=== PATIENT | male | born 1950 | race Caucasian/White ===

== ENCOUNTER → 2017-12-29 05:00 | Outpatient (REF) | payer MEDICARE, OTHER, SELFPAY ==
[2017-12-29 08:32] LABS: Hematocrit 43.3 % (40-54); Mean Corp Hgb Conc 32.3 g/gl (32-36); Mean Corpuscular Hgb 29.4 pg (27.0-32.0); Mean Corpuscular Volume 90.8 fL (80-94); Mean Platelet Vol. 9.9 fl (6.2-12.0); Platelet Count 151 K/mm3 (150-450); RBC Distribution Width CV 16.7 % (11.6-14.6); RBC Distribution Width SD 54.6 fl (35.1-43.9); Red Blood Count 4.77 M/mm3 (4.6-6.2); White Blood Count 6.6 K/mm3 (4.4-11.0)
[2017-12-29 08:43] LABS: Scan Indicated on CBC? Y/N NO
[2017-12-29 08:46] LABS: Anion Gap 10 (5-15); BUN 12 mg/dL (7-18); BUN/Creat Ratio 12.7 RATIO (10-20); Calcium,Total 8.7 mg/dL (8.5-10.1); Chloride 105 mmol/L (98-107); Creatinine, Serum 0.94 mg/dL (0.70-1.30); EST Glomerular Filtration Rate 85 mL/min (>60); Est Glom Filt Rate - Afr Amer 103 mL/min (>60); Glucose 95 mg/dL (74-106); Sodium Level 140 mmol/L (136-145)
== END ==
LOC: OLS.WCC 05:00
PROVIDERS: Visit Provider Family Medicine
DX: I10 Essential (primary) hypertension (principal); D64.9 Anemia, unspecified
CPT/HCPCS: 36415; 80048; 85027

== ENCOUNTER → 2018-03-29 05:00 | Outpatient (REF) | payer MEDICARE, OTHER, SELFPAY ==
[2018-03-29 08:41] LABS: Hematocrit 44.2 % (40-54); Hemoglobin 14.2 g/dl (13.0-16.5); Mean Corp Hgb Conc 32.1 g/gl (32-36); Mean Corpuscular Hgb 29.7 pg (27.0-32.0); Mean Corpuscular Volume 92.5 fL (80-94); Mean Platelet Vol. 9.5 fl (6.2-12.0); Platelet Count 160 K/mm3 (150-450); RBC Distribution Width CV 15.2 % (11.6-14.6); RBC Distribution Width SD 51.4 fl (35.1-43.9); Red Blood Count 4.78 M/mm3 (4.6-6.2); White Blood Count 7.7 K/mm3 (4.4-11.0)
[2018-03-29 08:42] LABS: Scan Indicated on CBC? Y/N NO
[2018-03-29 09:18] LABS: Anion Gap 9 (5-15); BUN 20 mg/dL (7-18); BUN/Creat Ratio 15.9 RATIO (10-20); Calcium,Total 8.4 mg/dL (8.5-10.1); Chloride 106 mmol/L (98-107); Creatinine, Serum 1.26 mg/dL (0.70-1.30); EST Glomerular Filtration Rate 61 mL/min (>60); Est Glom Filt Rate - Afr Amer 73 mL/min (>60); Glucose 106 mg/dL (74-106); Sodium Level 140 mmol/L (136-145)
== END ==
LOC: OLS.WCC 05:00
PROVIDERS: Visit Provider Family Medicine
DX: D64.9 Anemia, unspecified (principal); I10 Essential (primary) hypertension
CPT/HCPCS: 36415; 80048; 85027

== ENCOUNTER → 2018-06-28 05:00 | Outpatient (REF) | payer MEDICARE, OTHER, SELFPAY ==
[2018-06-28 09:50] LABS: Hematocrit 43.2 % (40-54); Hemoglobin 13.5 g/dl (13.0-16.5); Mean Corp Hgb Conc 31.3 g/gl (32-36); Mean Corpuscular Hgb 29.7 pg (27.0-32.0); Mean Corpuscular Volume 94.9 fL (80-94); Mean Platelet Vol. 9.3 fl (6.2-12.0); Platelet Count 169 K/mm3 (150-450); RBC Distribution Width CV 15.3 % (11.6-14.6); RBC Distribution Width SD 53.1 fl (35.1-43.9); Red Blood Count 4.55 M/mm3 (4.6-6.2); White Blood Count 8.9 K/mm3 (4.4-11.0)
[2018-06-28 09:51] LABS: Scan Indicated on CBC? Y/N NO
[2018-06-28 11:12] LABS: Anion Gap 10 (5-15); BUN 17 mg/dL (7-18); BUN/Creat Ratio 15.2 RATIO (10-20); Calcium,Total 8.7 mg/dL (8.5-10.1); Chloride 109 mmol/L (98-107); Creatinine, Serum 1.12 mg/dL (0.70-1.30); EST Glomerular Filtration Rate 69 mL/min (>60); Est Glom Filt Rate - Afr Amer 84 mL/min (>60); Glucose 123 mg/dL (74-106); Potassium 3.9 mmol/L (3.5-5.1); Sodium Level 145 mmol/L (136-145)
== END ==
LOC: OLS.WCC 05:00
PROVIDERS: Visit Provider Family Medicine
DX: D64.9 Anemia, unspecified (principal); I10 Essential (primary) hypertension
CPT/HCPCS: 36415; 80048; 85027

== ENCOUNTER → 2018-09-27 05:00 | Outpatient (REF) | payer MEDICARE, OTHER, SELFPAY ==
[2018-09-27 08:50] LABS: Hematocrit 45.7 % (40-54); Hemoglobin 14.6 g/dl (13.0-16.5); Mean Corp Hgb Conc 31.9 g/gl (32-36); Mean Corpuscular Hgb 29.9 pg (27.0-32.0); Mean Corpuscular Volume 93.6 fL (80-94); Platelet Count 153 K/mm3 (150-450); RBC Distribution Width CV 15.3 % (11.6-14.6); RBC Distribution Width SD 52.7 fl (35.1-43.9); Red Blood Count 4.88 M/mm3 (4.6-6.2); White Blood Count 6.3 K/mm3 (4.4-11.0)
[2018-09-27 08:52] LABS: Scan Indicated on CBC? Y/N NO
[2018-09-27 09:15] LABS: Anion Gap 9 (5-15); BUN 16 mg/dL (7-18); BUN/Creat Ratio 14.8 RATIO (10-20); Calcium,Total 8.6 mg/dL (8.5-10.1); Chloride 107 mmol/L (98-107); Creatinine, Serum 1.08 mg/dL (0.70-1.30); EST Glomerular Filtration Rate 72 mL/min (>60); Est Glom Filt Rate - Afr Amer 88 mL/min (>60); Glucose 118 mg/dL (74-106); Potassium 3.9 mmol/L (3.5-5.1); Sodium Level 142 mmol/L (136-145)
== END ==
LOC: OLS.WCC 05:00
PROVIDERS: Visit Provider Family Medicine
DX: D64.9 Anemia, unspecified (principal); I10 Essential (primary) hypertension
CPT/HCPCS: 36415; 80048; 85027

== ENCOUNTER → 2018-12-28 05:00 | Outpatient (REF) | payer MEDICARE, OTHER, SELFPAY ==
[2018-12-28 07:56] LABS: Hematocrit 46.4 % (40-54); Hemoglobin 14.8 g/dl (13.0-16.5); Mean Corp Hgb Conc 31.9 g/gl (32-36); Mean Corpuscular Hgb 29.7 pg (27.0-32.0); Mean Corpuscular Volume 93.2 fL (80-94); Mean Platelet Vol. 9.7 fl (6.2-12.0); Platelet Count 139 K/mm3 (150-450); RBC Distribution Width CV 15.1 % (11.6-14.6); RBC Distribution Width SD 51.1 fl (35.1-43.9); Red Blood Count 4.98 M/mm3 (4.6-6.2)
[2018-12-28 08:00] LABS: Scan Indicated on CBC? Y/N NO
[2018-12-28 08:09] LABS: Anion Gap 10 (5-15); BUN 13 mg/dL (7-18); BUN/Creat Ratio 12.5 RATIO (10-20); Calcium,Total 8.6 mg/dL (8.5-10.1); Chloride 109 mmol/L (98-107); Creatinine, Serum 1.04 mg/dL (0.70-1.30); EST Glomerular Filtration Rate 76 mL/min (>60); Est Glom Filt Rate - Afr Amer 91 mL/min (>60); Glucose 110 mg/dL (74-106); Sodium Level 143 mmol/L (136-145)
== END ==
LOC: OLS.WCC 05:00
PROVIDERS: Visit Provider Family Medicine
DX: I10 Essential (primary) hypertension (principal); D64.9 Anemia, unspecified
CPT/HCPCS: 36415; 80048; 85027

== ENCOUNTER → 2019-03-29 05:00 | Outpatient (REF) | payer MEDICARE, OTHER, SELFPAY ==
[2019-03-29 08:36] LABS: Hematocrit 47.6 % (40-54); Hemoglobin 15.8 g/dl (13.0-16.5); Mean Corp Hgb Conc 33.2 g/gl (32-36); Mean Corpuscular Hgb 29.9 pg (27.0-32.0); Mean Corpuscular Volume 90.2 fL (80-94); Mean Platelet Vol. 9.7 fl (6.2-12.0); Platelet Count 150 K/mm3 (150-450); RBC Distribution Width CV 14.9 % (11.6-14.6); RBC Distribution Width SD 49.5 fl (35.1-43.9); Red Blood Count 5.28 M/mm3 (4.6-6.2)
[2019-03-29 08:50] LABS: Anion Gap 7 (5-15); BUN 16 mg/dL (7-18); BUN/Creat Ratio 13.8 RATIO (10-20); Calcium,Total 8.6 mg/dL (8.5-10.1); Chloride 108 mmol/L (98-107); Creatinine, Serum 1.16 mg/dL (0.70-1.30); EST Glomerular Filtration Rate 67 mL/min (>60); Est Glom Filt Rate - Afr Amer 81 mL/min (>60); Glucose 140 mg/dL (74-106); Potassium 3.9 mmol/L (3.5-5.1); Sodium Level 142 mmol/L (136-145)
[2019-03-29 08:58] LABS: Scan Indicated on CBC? Y/N NO
== END ==
LOC: OLS.WCC 05:00
PROVIDERS: Visit Provider Family Medicine
DX: D64.9 Anemia, unspecified (principal); I10 Essential (primary) hypertension
CPT/HCPCS: 36415; 80048; 85027

== ENCOUNTER → 2019-06-29 05:00 | Outpatient (REF) | payer MEDICARE, OTHER, SELFPAY ==
[2019-06-29 08:34] LABS: Hematocrit 46.3 % (40-54); Hemoglobin 15.2 g/dL (13.0-16.5); Mean Corp Hgb Conc 32.8 g/dL (32-36); Mean Corpuscular Hgb 30.7 pg (27.0-32.0); Mean Corpuscular Volume 93.5 fL (80-94); Mean Platelet Vol. 9.7 fl (6.2-12.0); Platelet Count 146 K/mm3 (150-450); RBC Distribution Width SD 51.5 fl (35.1-43.9); Red Blood Count 4.95 M/mm3 (4.6-6.2); White Blood Count 6.3 K/mm3 (4.4-11.0)
[2019-06-29 08:40] LABS: Anion Gap 11 (5-15); BUN 16 mg/dL (7-18); BUN/Creat Ratio 14.4 RATIO (10-20); Calcium,Total 8.9 mg/dL (8.5-10.1); Chloride 105 mmol/L (98-107); Creatinine, Serum 1.11 mg/dL (0.70-1.30); EST Glomerular Filtration Rate 70 mL/min (>60); Est Glom Filt Rate - Afr Amer 85 mL/min (>60); Glucose 133 mg/dL (74-106); Potassium 3.8 mmol/L (3.5-5.1); Sodium Level 142 mmol/L (136-145)
== END ==
LOC: OLS.WCC 05:00
PROVIDERS: Visit Provider Family Medicine
DX: D64.9 Anemia, unspecified (principal); I10 Essential (primary) hypertension
CPT/HCPCS: 36415; 80048; 85027

== ENCOUNTER → 2019-09-27 06:00 | Outpatient (REF) | payer MEDICARE, OTHER, SELFPAY ==
[2019-09-27 08:37] LABS: Absolute Lymphocyte Count 1.64 X10^3/uL (0.83-4.51); Absolute Neutrophil Count 7.2 X10^3/uL (2.0-7.7); Basophil# 0.07 X10^3/uL; Basophil% 0.7 % (0-1); Eosinophil# 0.01 X10^3/uL; Eosinophils% 0.1 % (0-5); Lymphocyte # 1.64 X10^3/ul (4.0); Lymphocyte % 16.4 % (19-41); Mean Corp Hgb Conc 32.2 g/dL (32-36); Mean Corpuscular Hgb 30.3 pg (27.0-32.0); Mean Platelet Vol. 10.5 fl (6.2-12.0); Monocyte# 1.08 X10^3/uL; Monocyte% 10.8 % (0-10); NRBC Flagged by Analyzer 0 % (0-5); Neutrophil # 7.18 X10^3/uL (2.7-7.7); Neutrophil % 71.7 % (47-70); Platelet Count 181 K/mm3 (150-450); RBC Distribution Width SD 51.3 fl (35.1-43.9); Red Blood Count 6.01 M/mm3 (4.6-6.2)
[2019-09-27 08:46] LABS: Hematocrit 56.5 % (40-54)
[2019-09-27 08:51] LABS: Differential Indicated SCAN CRITERIA MET; Hemoglobin 18.2 g/dL (13.0-16.5)
[2019-09-27 09:33] LABS: Anion Gap 11 (5-15); BUN 31 mg/dL (7-18); BUN/Creat Ratio 16.8 RATIO (10-20); Calcium,Total 9.8 mg/dL (8.5-10.1); Chloride 118 mmol/L (98-107); Creatinine, Serum 1.85 mg/dL (0.70-1.30); EST Glomerular Filtration Rate 39 mL/min (>60); Est Glom Filt Rate - Afr Amer 47 mL/min (>60); Glucose 592 mg/dL (74-106); Potassium 3.6 mmol/L (3.5-5.1); Sodium Level 154 mmol/L (136-145)
[2019-09-28 11:16] LABS: Pathologist Review Reviewed
== END ==
LOC: OLS.WCC 06:00
PROVIDERS: Visit Provider Family Medicine
DX: D59.9 Acquired hemolytic anemia, unspecified (principal); R53.1 Weakness
CPT/HCPCS: 36415; 80048; 85025

== ENCOUNTER 2019-09-27 12:08 | Inpatient (IN) | payer MEDICARE, OTHER, SELFPAY ==
[2019-09-27] VITALS (23 sets, daily range): BP systolic 127–200; BP diastolic 104–143; PULSE 87–116; RESP 13–28; TEMP 36.3–37.6; O2SAT 94–97; BMI 27.1; BMI 27.8
[2019-09-27 13:01] LABS: Bedside Glucose > 500 mg/dL (70-110)
--- NOTE | 2019-09-27 13:06 | EKG12_ITS ---
Test Reason : GEN ILLNESS Blood Pressure : / mmHG Vent. Rate : 107 BPM Atrial Rate : 107 BPM P-R Int : 158 ms QRS Dur : 072 ms QT Int : 346 ms P-R-T Axes : 055 059 041 degrees QTc Int : 461 ms Sinus tachycardia Cannot rule out Inferior infarct , age undetermined Abnormal ECG Confirmed by JENNY GOMES, BRIAN ([id number]), art editor SUSANNA STILES ([id number]) on 10/03/2019 2:16:47 PM Referred By: Joslyn Galloway Confirmed By:BRIAN ALVARADO MD
--- NOTE | 2019-09-27 13:06 | RAD_ITS ---
STUDY: X-RAY CHEST REASON FOR EXAM: Male, 69 years old. Confusion/sepsis. TECHNIQUE: Single AP portable view of the chest. COMPARISON: Comparison is made with prior examination of February 16, 2017. FINDINGS: A right sided ventriculoperitoneal shunt tube is seen. EKG electrodes are seen. Stable mild elevation of the right hemidiaphragm. Persistent increased markings at the left lung base suggestive of left basilar atelectasis and/or infiltrate. There is blunting of the left costophrenic angle. Normal size heart. Normal mediastinum and grace. Normal visualized pulmonary arteries. There is atherosclerotic tortuosity of the aortic arch and descending thoracic aorta. There are degenerative changes of the visualized thoracic spine. Normal visualized ribs, clavicles, and shoulders. There is no demonstrated abnormality of the visualized soft tissue structures of the upper abdomen. RAD/Chest 1 View (Portable) IMPRESSION: Increased markings at the left lung base. Follow-up is recommended. Electronically Signed: Kurt Day, at 13:26 EST , Service support ,
--- NOTE | 2019-09-27 13:07 | CT_ITS ---
STUDY: CT BRAIN WITHOUT CONTRAST REASON FOR EXAM: Male, 69 years old. Increasing confusion. LEATHER TACKER shunt. RADIATION DOSAGE (If Supplied By Facility): CTDIvol = ( 44.99 ) mGy, DLP = ( 779.24 ) mGycm TECHNIQUE: Transaxial CT imaging of the brain was performed without administration of intravenous contrast material. Individualized dose optimization techniques were used for this CT. COMPARISON: Comparison is made with prior study dated February 18, 2017. FINDINGS: Normal soft tissue structures. Stable craniotomy defect in the midline of the occipital bone .A right-sided ventriculoperitoneal shunt tube is in situ. The tip is in the left frontal horn. There is moderate cerebral atrophy with widening of the extra-axial spaces and ventricular dilatation. There are areas of decreased attenuation within the white matter tracts of the supratentorial brain, consistent with microvascular disease changes. Stable encephalomalacia in the left frontal lobe. Normal basal ganglia and thalami. Normal brainstem. There is moderate cerebellar atrophy. Postoperative encephalomalacia seen in the inferior aspect of the cerebellum more prominent on the right side. There is no intracranial hemorrhage. There are no findings of an acute ischemic infarction. Opacification of the right maxillary sinus as well as the right frontal sinus. CT/Brain/Head without Contrast IMPRESSION: Chronic involutional changes of the brain. A right-sided ventriculoperitoneal shunt tube is seen with the tip in the left frontal horn. Stable atrophy and encephalomalacia involving the left frontal lobe as well as the cerebellum. Electronically Signed: Kurt Day, at 14:10 EST , Service support ,
[2019-09-27 13:18] LABS: Absolute Lymphocyte Count 1.37 X10^3/uL (0.83-4.51); Absolute Neutrophil Count 8.8 X10^3/uL (2.0-7.7); Basophil# 0.05 X10^3/uL; Basophil% 0.4 % (0-1); Eosinophil# 0.01 X10^3/uL; Eosinophils% 0.1 % (0-5); Lymphocyte # 1.37 X10^3/ul (4.0); Lymphocyte % 12.3 % (19-41); Mean Corp Hgb Conc 31.9 g/dL (32-36); Mean Corpuscular Hgb 30.3 pg (27.0-32.0); Mean Corpuscular Volume 94.9 fL (80-94); Mean Platelet Vol. 11.2 fl (6.2-12.0); Monocyte# 0.88 X10^3/uL; Monocyte% 7.9 % (0-10); NRBC Flagged by Analyzer 0 % (0-5); Neutrophil # 8.84 X10^3/uL (2.7-7.7); Platelet Count 169 K/mm3 (150-450); RBC Distribution Width CV 16.8 % (11.6-14.6); RBC Distribution Width SD 53.2 fl (35.1-43.9); Red Blood Count 6.41 M/mm3 (4.6-6.2); White Blood Count 11.2 K/mm3 (4.4-11.0)
[2019-09-27 13:22] LABS: Hematocrit 60.8 % (40-54)
[2019-09-27 13:23] LABS: Hemoglobin 19.4 g/dL (13.0-16.5)
--- NOTE | 2019-09-27 13:29 | ED.RN ---
CRITICAL LAB VALUE RECEIVED FROM LAB. HGB 19.4. DR. ROSARIO NOTIFIED.
[2019-09-27 13:39] LABS: ALB/GLOB Ratio 0.7 RATIO (0.9-2.4); AST(SGOT) 39 U/L (15-37); Alanine Aminotransfer ALT/SGPT 40 U/L (16-61); Albumin, Serum 4.1 g/dL (3.2-5.0); Alkaline Phosphatase 144 U/L (45-117); Anion Gap 9 (5-15); BUN 33 mg/dL (7-18); BUN/Creat Ratio 15.3 RATIO (10-20); Calcium,Total 10.4 mg/dL (8.5-10.1); Chloride 119 mmol/L (98-107); Creatinine, Serum 2.15 mg/dL (0.70-1.30); EST Glomerular Filtration Rate 33 mL/min (>60); Est Glom Filt Rate - Afr Amer 39 mL/min (>60); Estimated Creatinine Clearance 36.09 ml/min; Globulin 5.6 g/dL (2.2-4.2); Glucose 634 mg/dL (74-106); Potassium 3.8 mmol/L (3.5-5.1); Protein, Total 9.7 g/dL (6.4-8.2); Sodium Level 151 mmol/L (136-145)
[2019-09-27 13:41] LABS: Mucous, Urine 0 SEEN /hpf (<or=2+); Squamous Epithelial Cells - UA 0 SEEN /hpf (0-5)
--- NOTE | 2019-09-27 13:43 | ED.RN ---
DAUGHTER NAGA [phone] TO BE CALLED WHEN PT IS READY TO BE RE-EVALED. OXYGEN APPLIED TO PT, PT KEEPS REMOVING OXYGEN. ATTEMPTED TO EDUCATE PT TO KEEP IT ON. PT UNABLE TO UNDERSTAND
[2019-09-27 13:51] LABS: Color, Urine Yellow (Yellow); Glucose, Dipstick 1000 mg/dl (Normal); Ketone-Dipstick 5 mg/dl (Negative); Leukocyte Esterase-Dipstick 500 /ul (Negative); Nitrite-Dipstick Negative (Negative); Occult Blood-Urine 250 /ul (Negative); Protein-Dipstick 100 mg/dl (Negative); Specific Gravity, Urine 1.015 (1.002-1.030); Urine Bilirubin Dipstick Negative (Negative); Urine Clarity Cloudy (Clear); Urine Urobilinogen Normal (Normal)
[2019-09-27 14:00] LABS: Lactic Acid 4.5 mmol/L (0.4-2.0)
[2019-09-27 14:05] LABS: Bacteria 4+ /hpf (None Seen); Red Blood Cells-Urine 10-25 SEEN /hpf (0-5); White Blood Cells 25-50 SEEN /hpf (0-5)
[2019-09-27] MEDS: 0.9% Normal Saline 1,000 ML 999 ML IV ×3 (14:06→16:40)
[2019-09-27 14:17] LABS: International Normalized Ratio 1.2; Partial Thromboplast Time 25.9 Seconds (24.1-36.2); Prothrombin Time (Protime)PT. 14.5 SECONDS (11.7-14.9)
--- NOTE | 2019-09-27 14:59 | HP.PCM_ITS ---
Problem List (1) Septic shock Status: Acute (2) Complicated UTI (urinary tract infection) Status: Acute (3) Urinary retention Status: Acute (4) Hyperosmolar hyperglycemic coma due to diabetes mellitus without ketoacidosis Status: Acute (5) Acute kidney injury Status: Acute (6) Anemia of chronic disease Status: Chronic (7) AAA (abdominal aortic aneurysm) Status: Chronic Qualifiers: Presence of rupture: without rupture Qualified Code(s): I71.4 - Abdominal aortic aneurysm, without rupture (8) Hydrocephalus Status: Chronic Qualifiers: Hydrocephalus type: unspecified Qualified Code(s): G91.9 - Hydrocephalus, unspecified (9) S/P AUTOMATIC SPINNING LATHE OPERATOR shunt Status: Chronic (10) CVA (cerebral vascular accident) Status: Chronic Qualifiers: CVA mechanism: unspecified Qualified Code(s): I63.9 - Cerebral infarction, unspecified (11) HTN (hypertension) Status: Chronic Qualifiers: Hypertension type: essential hypertension Qualified Code(s): I10 - Essential (primary) hypertension (12) HLD (hyperlipidemia) Status: Chronic Qualifiers: Hyperlipidemia type: unspecified Qualified Code(s): E78.5 - Hyperlipidemia, unspecified (13) Anxiety and depression Status: Chronic History of Present Illness Date of Admission: 09/27/19 Chief Complaint: Fatigued, lethargic, confused, elevated BS The patient is a 69 y/o M w/ PMHx: 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 At facility given his hyperglycemia he was given 24 units of insulin and referred to the emergency room. Patient per report is chronically incontinent and does have mild erythema in the scrotal and penile regions with ongoing treatment with antifungal topical regimen which facility noted was unchanged. Work-up in the ED included T 98.4 with repeat 99.6, heart rate 115, BP 132/106, respiratory rate 28, 94% on room air, CBC with W BC 11.2, heme globin 19.4, platelet 169 with left shift, unremarkable coags, CMP w/ Na 151, Chl 119, BUN/Cr 33/2.15, glucose 634, anion gap 9, lactic acid 4.5, calcium 10.4, AST/ALT 39/40, alk phos 144, troponin 0.035, urinalysis with specific gravity 1.015, cloudy, protein 100, glucose 1000, ketones 5, occult blood 250, leukocyte esterase 500, RBC 10-25, WBC 25-50, 4+ bacteria, urine culture pending per ED, blood culture x2 pending per ED, chest x-ray with mild increased markings at the left lung base, CT brain with chronic involutional changes with a right-sided AUTOMATIC SPINNING LATHE OPERATOR shunt identified with the tip in the left frontal horn with stable atrophy and encephalomalacia involving the left frontal lobe as well as the cerebellum. Prior urine cultures with noted Proteus as well as E. coli with significant resistance patterns. Following review of these and discussion of current presentation with ED physician patient in addition to 3 L normal saline initiated on insulin drip as well as IV meropenem. 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 needing contact precautions Stage 1 decubitus ulcer (Chronic) Allergies No Known Allergies Allergy (Verified 09/27/19 12:17) Home Medications: Ambulatory Orders Medication Instructions Recorded Polyvinyl Alcohol [Artificial 2 drop EACHEYE TID 11/25/16 Tears] Acetaminophen [Acetaminophen 8 650 mg GT Q4H PRN PRN 02/16/17 Hour] Meclizine HCl [Antivert] 12.5 mg GT DAILY 02/16/17 Amlodipine [Norvasc] 5 mg GT DAILY 09/27/19 Aspirin 81 mg GT DAILY 09/27/19 Finasteride 5 mg PO DAILY 09/27/19 Insulin Aspart [Novolog Flexpen See Protocol SUBCUT TID 09/27/19 ([facility])] Ketoconazole [Nizoral] 1 applic TOPICAL BID 09/27/19 Melatonin 3 mg GT QHS 09/27/19 Polyethylene Glycol 3350 [Miralax] 17 gm PO DAILY 09/27/19 Quetiapine Fumarate [Seroquel] 25 mg GT QHS 09/27/19 Sennosides/Docusate Sodium 2 ea GT BID 09/27/19 [Senexon-S Tablet] Surgical History: - - Hx prior peg tube place placement and removal, evp general counsel 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 Psychiatric History: Anxiety, Depression Lives: Detention Smoking Status: Former smoker Tobacco Use: Non-smoker Alcohol: None Drugs: None - *Family History Paternal History Items: Heart Disease, Hypertension Maternal History Items: Heart Disease Review of Systems Constitutional: Reports: Anorexia, Fever - Low grade., Malaise, Weakness, Fatigue. Denies: Chills, Weight Change HEENT: Reports: - - Chronic left-sided facial droop.. Denies: Head Aches, Sinus Congestion, Sinus Drainage Cardiovascular: Denies: Chest Pain, Palpitations Respiratory: Denies: Cough, Shortness of Breath, Shortness of breath at rest, Shortness of breath upon exertion, Sputum production Gastrointestinal: Reports: Constipation. Denies: Abdominal Pain, Nausea, Vomiting Genitourinary: Reports: - - Noted urinary retention upon ED presentation.. Denies: Dysuria Musculoskeletal: Denies: Joint Pain, Joint Tenderness Skin: Reports: Skin Changes. Denies: Rash, Wounds Neurological: Reports: Balance problems, Slurred speech, Confusion, Focal weakness, Incoordination. Denies: Numbness, Tingling Psychiatric: Reports: Anxiety, Depression. Denies: Homicidal Ideations, Suicidal Ideations Hematologic/ Lymphatic: Reports: Anemia. Denies: Easy Bruising, Easy Bleeding VTE Information - Inpt Only VTE Present on Admission: No VTE Mechan Device Prophylaxis: SCD's VTE Pharm Prophylaxis ordered?: Yes Patient Problems: Active and Suspected Problems Septic shock (Acute) Complicated UTI (urinary tract infection) (Acute) Urinary retention (Acute) Hyperosmolar hyperglycemic coma due to diabetes mellitus without ketoacidosis (Acute) Subjective: Laying in the ED bed, fatigued and ill-appearing, able to answer who he is but very fatigued and slow responses. Objective: Physical Examination: General: awake, intermittently appears alert, oriented to self which is baseline, moderate to severe chronic memory impairment, remains intermittently cooperative, seated upright in the ED bed, fatigued and ill-appearing. Skin: normal color, turgor, no icterus, cyanosis. HEENT: AT/NC, EOM difficult to assess, follows from each bedside, PERRLA, mild L sided ptosis, left facial droop present, poor dentition, dry MM, no carotid bruits or JVD noted. Lungs: CTA bilaterally, poor effort, moderate decrease BL bases, no rales, ronchi or wheezing. Heart: Regular rate and rhythm; no gallop, rub audible. Abdomen: soft, overweight, NTTP, ND, normal BS, no HSM. Extremities: no cyanosis, clubbing, or edema. Neurological: awake, intermittently appears alert, oriented to self which is baseline, moderate to severe chronic memory impairment, remains intermittently cooperative; cognitive function decreased from baseline, baseline moderate to severe impairment s/p prior CVA, hydrocephalus s/p AUTOMATIC SPINNING LATHE OPERATOR shunt; pupils equally reactive to light and accomodation; cranial nerves grossly normal except notable L sided facial droop s/p CVA, somewhat difficult assessment given slow following commands, moving all 4 extremities to stimuli, strength difficult to assess but currently appears severely global decrease secondary to acute presentation, gated by underlying prior CVA history. Psychiatric: affect appears fatigued and lethargic, no acute evidence of depressive or anxiety feelings. - Physical Exam Vitals/I&O's: Vital Signs Temp Pulse Resp BP Pulse Ox 99.6 F H 110 H 22 H 153/121 H 96 09/27/19 14:05 09/27/19 14:00 09/27/19 14:00 09/27/19 14:06 09/27/19 14:00 Oxygen Flow Rate (L/min) 2 Oxygen Delivery Method Nasal Cannula Weight: 200 lb 6.403 oz Body Mass Index (BMI) 27.1 Finger Stick Blood Glucose 107 Laboratory Results 09/27/19 12:26: Sodium 151 H, Potassium 3.8, Chloride 119 H, Carbon Dioxide 23.0, Anion Gap 9, BUN 33 H, Creatinine 2.15 H, Estim Creat Clear Calc 36.09, Est GFR (MDRD) Af Amer 39 L, Est GFR (MDRD) Non-Af 33 L, BUN/Creatinine Ratio 15.3, Glucose 634 H*, Calcium 10.4 H, Total Bilirubin 0.90, AST 39 H, ALT 40, Alkaline Phosphatase 144 H, Troponin I 0.035, Total Protein 9.7 H, Albumin 4.1, Globulin 5.6 H, Albumin/Globulin Ratio 0.7 L 09/27/19 12:26: WBC 11.2 H, RBC 6.41 H, Hgb 19.4 H*, Hct 60.8 H, MCV 94.9 H, MCH 30.3, MCHC 31.9 L, RDW Std Deviation 53.2 H, RDW Coeff of Jagruti 16.8 H, Plt Count 169, MPV 11.2, Immature Gran % (Auto) 0.300, Neut % (Auto) 79.0 H, Lymph % (Auto) 12.3 L, Nuckolls % (Auto) 7.9, Eos % (Auto) 0.1, Baso % (Auto) 0.4, Absolute Neuts (auto) 8.8 H, Absolute Lymphs (auto) 1.37, Nucleated RBC % 0, Diff Path Review March09/27/19 12:55: POC Glucose > 500 H* 09/27/19 13:25: Lactic Acid 4.5 H* 09/27/19 13:30: Urine Color Yellow, Urine Clarity Cloudy, Urine pH 5.0, Ur Specific [place] 1.015, Urine Protein 100 H, Urine Glucose (UA) 1000 H, Urine Ketones 5 H, Urine Occult Blood 250 H, Urine Nitrite Negative, Urine Bilirubin Negative, Urine Urobilinogen Normal, Ur Leukocyte Esterase 500 H, Urine RBC 10- 25 SEEN, Urine WBC 25-50 SEEN, Ur Squamous Epith Cells 0 SEEN, Urine Bacteria 4+, Urine Mucus 0 SEEN 09/27/19 13:55: PT 14.5, INR 1.2, APTT 25.9 Current Medications Dextrose (D50w Syringe) 0 gm IV X1 PRN; Protocol PRN Reason: Hypoglycemia Protocol Sodium Chloride () 1,000 mls @ 150 mls/hr IV .Q6H40M ETELVINA Sodium Chloride () 1,000 mls @ 999 mls/hr IV .Q1H1M ETELVINA Stop: 09/27/19 15:10 Last Admin: 09/27/19 14:06 Dose: 999 mls/hr Documented by: Sodium Chloride () 1,000 mls @ 999 mls/hr IV .Q1H1M ONE Stop: 09/27/19 15:22 Insulin Human Lispro 100 unit/ (Sodium Chloride) 100 mls @ 4.545 mls/hr IV .Q22H1M [facility]; Protocol Meropenem 1 gm/ Sodium (Chloride) 120 mls @ 240 mls/hr IV X1 ONE Stop: 09/27/19 15:26 Assessment/Plan All Active Problems Septic shock (Acute) Complicated UTI (urinary tract infection) (Acute) Urinary retention (Acute) Hyperosmolar hyperglycemic coma due to diabetes mellitus without ketoacidosis (Acute) Severe sepsis (Acute) UTI (urinary tract infection) (Acute) Acute kidney injury (Acute) Aspiration into airway (Acute) UTI (urinary tract infection) (Acute) Respiratory failure (Acute) The patient is a 69 y/o M w/ PMHx: 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 (1) Acute Septic Shock secondary to acute complicated UTI with urinary retention in addition to HHS state as noted #2: Will admit patient to the ICU given complicate presentation, continue to maintain on cardiac monitoring, continue IVF bolus per protocol, trend lactic acid per facility protocol, given comp gated urinary tract infection as suspected primary source in addition to hyperglycemic hyperosmolar state will maintain on IV meropenem per prior urine cultures with pending infectious disease consultation per facility protocol, maintain Reese catheter given retention with addition of Flomax and finasteride, ICU physician consulted and pending, continue IVFs. We will repeat the chest x- ray with PA and lateral in a.m. given mild left lower lobe findings on presentation ED chest x-ray. (2) Hyperglycemic hHyperosmolar State w/ New onset diabetes mellitus type II: Patient initiated on insulin drip in the emergency room with 3 L normal saline administration. Will continue on insulin drip, check serial K+, glucose w/ IVF changes pending these levels, serial chemistry, obtain mag, phos daily w/ repletion as needed, transition to SC regimen once blood sugars and clinical status improved. Will have nutrition consultation. Will obtain hemoglobin A1c. Acetone and serum osmolality pending. (3) Acute kidney injury: Secondary to #1, #2. Admission BUN/Cr 33/2.15, prior baseline creatinine noted to be 1.0-1.2. Will hydrate, hold nephrotoxic medications and repeat chemistry in AM. If no improvement would plan FeNa and renal ultrasound assessment. (4) Acute Encephalopathy, Metabolic, Infectious: Secondary to #1, #2, #3, continue treatment as noted above, complicated by underlying memory and self care impairment s/p prior CVA with AUTOMATIC SPINNING LATHE OPERATOR shunt. (5) Hx CVA, Hx Hydrocephalus s/p AUTOMATIC SPINNING LATHE OPERATOR Shunt: From history CVA associated w/ artery occlusion/stenosis, possibly basilar but unclear. Notable deficits including left-sided facial droop and unclear left-sided deficits. CT head with chronic involutional changes with a right-sided AUTOMATIC SPINNING LATHE OPERATOR shunt identified with the tip in the left frontal horn with stable atrophy and encephalomalacia involving the left frontal lobe as well as the cerebellum. We will continue on aspirin, not on sta tin therapy, continue Norvasc with hold parameters given acute presentation, new onset diabetes as noted #2 with continued evaluation. (6) Hypertension: Continue home regimen, given stable BP in the ED despite #1 presentation, including Norvasc with hold parameters, , PRN hydralazine. (7) Chronic COPD: Will maintain on oxygen with wean as tolerated to room air/home oxygen supplementation, continue ATC duonebs, PRN albuterol, HOB, IS parameters. (8) Anxiety and Depression: Will continue home q HS seroquel regimen pending re- evaluate of status, hold if sedate, not on SSRI or SNRI, may consider if necessary. (9) GERD: PPI. (10) DVT prophylaxis: SCDs, heparin. (11) CODE status: Daughter is HCPOA, Guardian. Patient does not have specific living will. Discussed CODE status at length including difference between FULL code, DNR-CCA and DNR-CC status. Following discussions about the differences in these status, requested continued DNR-CCA, no intubation status. Advanced Care Planning Face to Face Time: 16 minutes. Code Visit Inpatient E&M: 87751 Init Hosp L3 Procedures: 67178 Advncd Care Plan 30 Min
--- NOTE | 2019-09-27 15:58 | ED.DCSUM_ITS ---
- ER Visit Summary Date of Service: 09/27/19 Chief Complaint: Confusion History of Present Illness: The patient is a 69 M who presents the emergency department with increased confusion. Daughter states that it was noted today. They also noted at the [place] [facility] that her blood sugar was elevated. She tel ls me that he has had a prior stroke and the required shunt placement several years ago because of that he has been in the [place] [facility] since. His baseline is that he can feed himself and push himself in his own wheelchair and stand to transfer. She also informs me that the [place] [facility] stated that he had a rash in his inguinal area they applied a cream. No reported fevers. No vomiting or diarrhea. Daughter states he is very hard of hearing. Daughter tells me he is not a diabetic and that he received insulin this morning from the nursing Physical Examination: Temperature 99.5 heart rate of 115 respirations are 28 pulse ox 94% on room air blood pressure 132/106 Gen: Well-nourished well-developed Head: There are postoperative changes on the right parietal gallop Eyes: Perrl EOMI ENT: TMs clear no rhinorrhea dry mucous membranes Neck: Supple no lymphadenopathy no JVD nontender CVS: Regular rate tachycardic rhythm no murmurs normal S1-S2 Respiratory: No distress clear to auscultation bilaterally chest nontender Abdomen: Soft nontender nondistended normal bowel sounds no masses Genitourinary: Uncircumcised. There is generalized erythema of the scrotum shaft and meatus. There is no sloughing of skin. There is no foul smell. He is wearing a adult diaper that is soiled with urine Back: Nontender Extremity: Nontender no edema Skin: Normal color no rash Neuro: Lethargic but orientated ?3 moves all extremities Psych: Normal affect normal mood Test Results: EKG shows a sinus rhythm at a rate of 107. White count 11.2. Hemoglobin 19.4. Platelets 169. Creatinine 2.1 with a BUN of 33. Glucose 634. Normal gap and CO2 level. Urinalysis 25-50 white cells 4+ bacteria negative nitrates. Troponin 0 0.035. Lactic acid 4.5. Chest x-ray negative. CT of the brain shows no acute changes or obvious hydrocephalus. Emergency Department Course and Treatment: Reese catheter was placed for ac curate I's and O's and was noted the patient had a large amount of urine (1 L) removed. Is temperature sensitive and temperature is 99.5 and will continue to be monitored. Received IV fluids as well as placed on insulin drip and given meropenem. Meropenem was chosen because in 2017 he grew out E. coli that was multidrug resistant. He also grew out Proteus. Blood and urine cultures were ordered before antibiotics. Plan is admission to ICU. Impression: 1. Septic shock 2. Comp gated urinary tract infection 3. Acute kidney injury 4. Hyperosmolar hyperglycemic syndrome 5. Critical care time 35 minutes This note was generated with Optirenoation software. It may contain incorrect words, spelling, and punctuation that were not noted in review of the chart slick or to signing
[2019-09-27 16:29] LABS: Magnesium 2.5 mg/dL (1.6-2.6); Phosphorus 3.6 mg/dL (2.5-4.9)
[2019-09-27] MEDS: hydrALAZINE 20 MG/ML Vial 10 MG IV (16:34)
[2019-09-27 16:40] LABS: Hemoglobin A1c 9.7 % (4.2-6.3)
[2019-09-27 17:16] LABS: Bedside Glucose 302 mg/dL (70-110)
[2019-09-27 17:16] LABS: Bedside Glucose 397 mg/dL (70-110)
[2019-09-27 17:28] LABS: Reflex Lactate? Y
[2019-09-27] MEDS: 0.9% Normal Saline 1,000 ML 150 ML IV (18:18)
[2019-09-27 18:20] LABS: Anion Gap 5 (5-15); BUN 29 mg/dL (7-18); BUN/Creat Ratio 17.2 RATIO (10-20); Calcium,Total 9.4 mg/dL (8.5-10.1); Chloride 129 mmol/L (98-107); Creatinine, Serum 1.69 mg/dL (0.70-1.30); EST Glomerular Filtration Rate 43 mL/min (>60); Est Glom Filt Rate - Afr Amer 52 mL/min (>60); Glucose 306 mg/dL (74-106); Lactic Acid 3.2 mmol/L (0.4-2.0); Potassium 3.3 mmol/L (3.5-5.1); Sodium Level 157 mmol/L (136-145)
[2019-09-27 18:33] LABS: Osmolality, Serum 351 mOsm/KG (280-301)
[2019-09-27 19:01] LABS: Bedside Glucose 267 mg/dL (70-110)
[2019-09-27 19:01] LABS: Bedside Glucose 281 mg/dL (70-110)
[2019-09-27 20:00] LABS: Bedside Glucose 262 mg/dL (70-110)
[2019-09-27] MEDS: Heparin Injection (Vial) 5,000 UNIT/ML VIAL 5000 UNIT SC (22:05)
[2019-09-27] MEDS: Ketoconazole Cream 1 APPLIC TOPICAL (22:06)
[2019-09-27 22:16] LABS: Bedside Glucose 239 mg/dL (70-110)
[2019-09-27 22:16] LABS: Bedside Glucose 260 mg/dL (70-110)
[2019-09-27 23:05] LABS: Anion Gap 5 (5-15); BUN 23 mg/dL (7-18); BUN/Creat Ratio 18.5 RATIO (10-20); Chloride 128 mmol/L (98-107); Creatinine, Serum 1.24 mg/dL (0.70-1.30); EST Glomerular Filtration Rate 62 mL/min (>60); Est Glom Filt Rate - Afr Amer 74 mL/min (>60); Estimated Creatinine Clearance 58.87 ml/min; Glucose 280 mg/dL (74-106); Potassium 3.3 mmol/L (3.5-5.1); Sodium Level 157 mmol/L (136-145)
[2019-09-27] MEDS: Potassium Chloride 10mEq/100mL 10 MEQ/100 ML IV.SOLN. 100 MEQ IV BOLUS (23:42)
[2019-09-28] VITALS (26 sets, daily range): BP systolic 120–173; BP diastolic 53–127; PULSE 76–107; RESP 13–20; TEMP 36.1–36.9; O2SAT 91–98
[2019-09-28 00:01] LABS: Bedside Glucose 243 mg/dL (70-110)
[2019-09-28] MEDS: Potassium Chloride 10mEq/100mL 10 MEQ/100 ML IV.SOLN. 100 MEQ IV BOLUS ×2 (00:44→01:48)
[2019-09-28 00:56] LABS: Bedside Glucose 218 mg/dL (70-110)
[2019-09-28 00:56] LABS: Bedside Glucose 271 mg/dL (70-110)
[2019-09-28] MEDS: Morphine 2 MG/ML Syringe IV (01:07)
[2019-09-28] MEDS: 0.9% Saline Lock 10 ML Syringe IV (01:09)
[2019-09-28 02:21] LABS: Bedside Glucose 194 mg/dL (70-110)
[2019-09-28 02:31] LABS: Absolute Lymphocyte Count 2.93 X10^3/uL (0.83-4.51); Absolute Neutrophil Count 8.6 X10^3/uL (2.0-7.7); Basophil# 0.06 X10^3/uL; Basophil% 0.5 % (0-1); Eosinophils% 0.8 % (0-5); Hematocrit 55.3 % (40-54); Hemoglobin 17.5 g/dL (13.0-16.5); Lymphocyte # 2.93 X10^3/ul (4.0); Lymphocyte % 22.7 % (19-41); Mean Corp Hgb Conc 31.6 g/dL (32-36); Mean Corpuscular Hgb 30.2 pg (27.0-32.0); Mean Corpuscular Volume 95.5 fL (80-94); Mean Platelet Vol. 10.1 fl (6.2-12.0); Monocyte# 1.15 X10^3/uL; Monocyte% 8.9 % (0-10); NRBC Flagged by Analyzer 0 % (0-5); Neutrophil # 8.61 X10^3/uL (2.7-7.7); Neutrophil % 66.8 % (47-70); Platelet Count 149 K/mm3 (150-450); RBC Distribution Width CV 15.6 % (11.6-14.6); RBC Distribution Width SD 53.9 fl (35.1-43.9); Red Blood Count 5.79 M/mm3 (4.6-6.2); White Blood Count 12.9 K/mm3 (4.4-11.0)
[2019-09-28 02:44] LABS: Anion Gap 5 (5-15); BUN 21 mg/dL (7-18); BUN/Creat Ratio 16.3 RATIO (10-20); Calcium,Total 8.7 mg/dL (8.5-10.1); Chloride 125 mmol/L (98-107); Creatinine, Serum 1.29 mg/dL (0.70-1.30); EST Glomerular Filtration Rate 59 mL/min (>60); Est Glom Filt Rate - Afr Amer 71 mL/min (>60); Estimated Creatinine Clearance 56.59 ml/min; Glucose 258 mg/dL (74-106); Phosphorus 2.9 mg/dL (2.5-4.9); Potassium 4.7 mmol/L (3.5-5.1); Sodium Level 155 mmol/L (136-145)
[2019-09-28 04:11] LABS: Bedside Glucose 244 mg/dL (70-110)
[2019-09-28 05:06] LABS: Bedside Glucose 220 mg/dL (70-110)
--- NOTE | 2019-09-28 05:55 | RAD_ITS ---
STUDY: X-RAY CHEST REASON FOR EXAM: Male, 69 years old. Fever. TECHNIQUE: Single AP portable view of the chest. COMPARISON: . FINDINGS: There is a right-sided INDUSTRIAL INSULATOR shunt in place. The lungs are underexpanded with mild bilateral basilar atelectasis, remainder of the lungs are clear. There is minimal obscuration of the left costophrenic angle which may indicate pleural effusion versus atelectasis versus pleural thickening. Surgical clips in the lingular region noted. Normal size heart. Normal mediastinum and grace. Normal visualized pulmonary arteries. There is atherosclerotic calcification of the aortic arch with tortuosity. There are diffuse degenerative changes of the visualized thoracic spine. There is degenerative osteoarthritis of the bilateral shoulders. There is no demonstrated abnormality of the visualized soft tissue structures of the upper abdomen. RAD/Chest 1 View (Portable) IMPRESSION: Minimal bilateral basilar atelectasis with possible left-sided pleural effusion versus pleural thickening. Otherwise no acute process identified, no significant change in the interval. Electronically Signed: Lazara Marquez MD at 5:54 EST , Service support ,
[2019-09-28 06:25] LABS: Anion Gap 4 (5-15); BUN 19 mg/dL (7-18); BUN/Creat Ratio 15.3 RATIO (10-20); Calcium,Total 8.6 mg/dL (8.5-10.1); Chloride 121 mmol/L (98-107); Creatinine, Serum 1.24 mg/dL (0.70-1.30); EST Glomerular Filtration Rate 62 mL/min (>60); Est Glom Filt Rate - Afr Amer 74 mL/min (>60); Estimated Creatinine Clearance 58.87 ml/min; Glucose 378 mg/dL (74-106); Magnesium 1.8 mg/dL (1.6-2.6); Potassium 4.3 mmol/L (3.5-5.1); Sodium Level 150 mmol/L (136-145)
--- NOTE | 2019-09-28 06:50 | PCM.CON.CC ---
Reason for Consult Date of Consultation: 09/28/19 Reason for Consultation: Septic shock, HHS, UTI, CHRISTINA, encephalopathy History of Present Illness: The patient is a 69-year-old male, with a history as outlined below, who presented to the emergency department on September 27 with altered mentation. 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 The patient currently resides at [facility]. On presentation to the emergency department, the patient was noted to be afebrile and hemodynamically stable. He was, nonetheless, tachycardic and tachypneic. Initial laboratory evaluation revealed a white blood cell count of 11,000 with an elevated hemoglobin to 19 g/dL. Coagulation profile is within normal limits. Chemistry profile was initially notable for a sodium of 151, chloride of 119 and creatinine of 2.15. Glucose was elevated to 634. Hemoglobin A1c was noted to be 9.7. Lactate was initially elevated at 4.5. UA was negative for nitrites but positive for leukocyte esterase. 25-50 white blood cells were noted along with 4+ urine bacteria. Serum acetone level was negative. Plain film chest x-ray revealed an elevated right hemidiaphragm and blunting of the left costophrenic angle. CT head revealed moderate cerebral atrophy associated with ventricular dilation, along with evidence of microvascular disease and stable encephalomalacia. No intracranial hemorrhage or acute ischemic infarction was noted. There was incidental note of opacification of the right maxillary sinus as well as the right frontal sinus. The patient received supplemental IV fluid hydration and was started on broad-spectrum antimicrobials. He was subsequently admitted to the medical intensive care unit for further management. Of note, in the past, the patient has grown essentially pansensitive Proteus mirabilis in 2017 along with multidrug-resistant E. coli. Overnight, nursing staff reported that the patient has remained afebrile and hemodynamically stable. No vasopressor support was ever required. Attempts to place a PICC line were unsuccessful overnight. The patient is extremely hard of hearing. However, this morning, he denied the presence of chest pain, shortness of breath or abdominal pain. He does appear to be at his baseline from a neurological perspective. 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 needing contact precautions Stage 1 decubitus ulcer (Chronic) Allergies No Known Allergies Allergy (Verified 09/27/19 12:17) Home Medications: Ambulatory Orders Medication Instructions Recorded Polyvinyl Alcohol [Artificial 2 drop EACHEYE TID 11/25/16 Tears] Acetaminophen [Acetaminophen 8 650 mg PO Q4H PRN PRN 02/16/17 Hour] Meclizine HCl [Antivert] 12.5 mg PO DAILY 02/16/17 Amlodipine [Norvasc] 5 mg PO DAILY 09/27/19 Aspirin 81 mg PO DAILY 09/27/19 Finasteride 5 mg PO DAILY 09/27/19 Insulin Aspart [Novolog Flexpen See Protocol SUBCUT TID 09/27/19 ([facility])] Ketoconazole [Nizoral] 1 applic TOPICAL BID 09/27/19 Melatonin 3 mg PO QHS 09/27/19 Polyethylene Glycol 3350 [Miralax] 17 gm PO DAILY 09/27/19 Quetiapine Fumarate [Seroquel] 25 mg PO QHS 09/27/19 Sennosides/Docusate Sodium 2 ea PO BID 09/27/19 [Senexon-S Tablet] Surgical History: - - Hx prior peg tube place placement and removal, vp respiratory 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 Psychiatric History: Anxiety, Depression Lives: Retirement Smoking Status: Former smoker Tobacco Use: Non-smoker Alcohol: None Drugs: None - *Family History Paternal History Items: Heart Disease, Hypertension Maternal History Items: Heart Disease Review of Systems Constitutional: Denies: Chills, Fever Eyes: Denies: Blurred vision, Double vision HEENT: Reports: Difficulty Swallowing, Dysphasia, Hard of Hearing Cardiovascular: Denies: Chest Pain, Palpitations Respiratory: Denies: Cough, Shortness of breath at rest, Sputum production Gastrointestinal: Denies: Abdominal Pain, Nausea, Vomiting Genitourinary: Reports: Incontinence Musculoskeletal: Denies: Joint Pain, Joint Tenderness Skin: Denies: Rash, Wounds Neurological: Reports: Slurred speech Psychiatric: Denies: Anxiety, Depression, Homicidal Ideations, Suicidal Ideations Hematologic/ Lymphatic: Denies: Easy Bruising, Easy Bleeding Patient Problems: Active and Suspected Problems Septic shock (Acute) Complicated UTI (urinary tract infection) (Acute) Urinary retention (Acute) Hyperosmolar hyperglycemic coma due to diabetes mellitus without ketoacidosis (Acute) Objective: The patient's most recent lab work, culture data and imaging studies have all been personally reviewed. Blood and urine cultures are currently pending. Prior modified barium swallow in March 2017 did reveal evidence of silent aspiration. - Physical Exam Vitals/I&O's: Vital Signs Temp Pulse Resp BP Pulse Ox 97.3 F L 85 15 156/80 H 93 09/28/19 06:00 09/28/19 06:00 09/28/19 06:00 09/28/19 06:00 09/28/19 06:00 Oxygen Flow Rate (L/min) 2 Oxygen Delivery Method Room Air Weight: 197 lb 5.019 oz Body Mass Index (BMI) 27.8 Finger Stick Blood Glucose 210 Intake and Output for Last 24 Hours 09/26/19 09/27/19 09/28/19 23:59 23:59 23:59 Intake Total 3162.27 / 3733.71 1771.25 / 1771.25 Output Total 1150 / 1150 250 / 250 Balance 2011. / 2583.71 1521.25 / 1521.25 General: Alert, Cooperative, No apparent distress, - - Extremely hard of hearing HEENT: Atraumatic, Normocephalic Oral: No Gingival or Mucosal Lesions/ Ulcerations Neck: Supple, No Nodes, Trachea Midline Lungs: No rhonchi, No wheeze, No rales, Diminished Cardiovascular: Regular rate, Regular Rhythm, Normal S1, Normal S2 Abdomen: Bowel Sounds Present, Soft, Non Tender Extremities: No clubbing, No cyanosis, No edema Skin: No breakdown Musculoskeletal: No Tenderness to Palpation of Joints or Extremities Lymphatic: No Cervical, Supraclavicular, or Inguinal Adenopathy Neurological: - - Residual facial droop and dysarthric speech. Psych/Mental Status: Flat Affect Labs (Last 48 Hours) 09/27/19 09/27/19 09/27/19 12:26 12:26 12:26 WBC 11.2 H RBC 6.41 H Hgb 19.4 H* Hct 60.8 H MCV 94.9 H MCH 30.3 MCHC 31.9 L RDW Std Deviation 53.2 H RDW Coeff of Jagruti 16.8 H Plt Count 169 MPV 11.2 Immature Gran % (Auto) 0.300 Neut % (Auto) 79.0 H Lymph % (Auto) 12.3 L [place] % (Auto) 7.9 Eos % (Auto) 0.1 Baso % (Auto) 0.4 Absolute Neuts (auto) 8.8 H Absolute Lymphs (auto) 1.37 Nucleated RBC % 0 Diff Path Review May foll PT INR APTT Sodium 151 H Potassium 3.8 Chloride 119 H Carbon Dioxide 23.0 Anion Gap 9 BUN 33 H Creatinine 2.15 H Estim Creat Clear Calc 36.09 Est GFR (MDRD) Af Amer 39 L Est GFR (MDRD) Non-Af 33 L BUN/Creatinine Ratio 15.3 Glucose 634 H* Hemoglobin A1c Serum Osmolality Lactic Acid Calcium 10.4 H Phosphorus 3.6 Magnesium 2.5 Total Bilirubin 0.90 AST 39 H ALT 40 Alkaline Phosphatase 144 H Troponin I 0.035 Total Protein 9.7 H Albumin 4.1 Globulin 5.6 H Albumin/Globulin Ratio 0.7 L Urine Color Urine Clarity Urine pH Ur Specific [place] Urine Protein Urine Glucose (UA) Urine Ketones Urine Occult Blood Urine Nitrite Urine Bilirubin Urine Urobilinogen Ur Leukocyte Esterase Urine RBC Urine WBC Ur Squamous Epith Cells Urine Bacteria Urine Mucus Acetone Level POC Glucose 09/27/19 09/27/19 09/27/19 12:26 12:55 13:25 WBC RBC Hgb Hct MCV MCH MCHC RDW Std Deviation RDW Coeff of Jagruti Plt Count MPV Immature Gran % (Auto) Neut % (Auto) Lymph % (Auto) [place] % (Auto) Eos % (Auto) Baso % (Auto) Absolute Neuts (auto) Absolute Lymphs (auto) Nucleated RBC % Diff Path Review PT INR APTT Sodium Potassium Chloride Carbon Dioxide Anion Gap BUN Creatinine Estim Creat Clear Calc Est GFR (MDRD) Af Amer Est GFR (MDRD) Non-Af BUN/Creatinine Ratio Glucose Hemoglobin A1c 9.7 H Serum Osmolality Lactic Acid 4.5 H* Calcium Phosphorus Magnesium Total Bilirubin AST ALT Alkaline Phosphatase Troponin I Total Protein Albumin Globulin Albumin/Globulin Ratio Urine Color Urine Clarity Urine pH Ur Specific [place] Urine Protein Urine Glucose (UA) Urine Ketones Urine Occult Blood Urine Nitrite Urine Bilirubin Urine Urobilinogen Ur Leukocyte Esterase Urine RBC Urine WBC Ur Squamous Epith Cells Urine Bacteria Urine Mucus Acetone Level POC Glucose > 500 H* 09/27/19 09/27/19 09/27/19 13:30 13:55 15:49 WBC RBC Hgb Hct MCV MCH MCHC RDW Std Deviation RDW Coeff of Jagruti Plt Count MPV Immature Gran % (Auto) Neut % (Auto) Lymph % (Auto) [place] % (Auto) Eos % (Auto) Baso % (Auto) Absolute Neuts (auto) Absolute Lymphs (auto) Nucleated RBC % Diff Path Review PT 14.5 INR 1.2 APTT 25.9 Sodium Potassium Chloride Carbon Dioxide Anion Gap BUN Creatinine Estim Creat Clear Calc Est GFR (MDRD) Af Amer Est GFR (MDRD) Non-Af BUN/Creatinine Ratio Glucose Hemoglobin A1c Serum Osmolality Lactic Acid Calcium Phosphorus Magnesium Total Bilirubin AST ALT Alkaline Phosphatase Troponin I Total Protein Albumin Globulin Albumin/Globulin Ratio Urine Color Yellow Urine Clarity Cloudy Urine pH 5.0 Ur Specific [place] 1.015 Urine Protein 100 H Urine Glucose (UA) 1000 H Urine Ketones 5 H Urine Occult Blood 250 H Urine Nitrite Negative Urine Bilirubin Negative Urine Urobilinogen Normal Ur Leukocyte Esterase 500 H Urine RBC 10-25 SEEN Urine WBC 25-50 SEEN Ur Squamous Epith Cells 0 SEEN Urine Bacteria 4+ Urine Mucus 0 SEEN Acetone Level POC Glucose 397 H 09/27/19 09/27/19 09/27/19 16:46 17:34 17:34 WBC RBC Hgb Hct MCV MCH MCHC RDW Std Deviation RDW Coeff of Jagruti Plt Count MPV Immature Gran % (Auto) Neut % (Auto) Lymph % (Auto) [place] % (Auto) Eos % (Auto) Baso % (Auto) Absolute Neuts (auto) Absolute Lymphs (auto) Nucleated RBC % Diff Path Review PT INR APTT Sodium 157 H Potassium 3.3 L Chloride 129 H* Carbon Dioxide 23.0 Anion Gap 5 BUN 29 H Creatinine 1.69 H Estim Creat Clear Calc 43.20 Est GFR (MDRD) Af Amer 52 L Est GFR (MDRD) Non-Af 43 L BUN/Creatinine Ratio 17.2 Glucose 306 H Hemoglobin A1c Serum Osmolality 351 H Lactic Acid Calcium 9.4 Phosphorus Magnesium Total Bilirubin AST ALT Alkaline Phosphatase Troponin I Total Protein Albumin Globulin Albumin/Globulin Ratio Urine Color Urine Clarity Urine pH Ur Specific [place] Urine Protein Urine Glucose (UA) Urine Ketones Urine Occult Blood Urine Nitrite Urine Bilirubin Urine Urobilinogen Ur Leukocyte Esterase Urine RBC Urine WBC Ur Squamous Epith Cells Urine Bacteria Urine Mucus Acetone Level NEGATIVE POC Glucose 302 H 09/27/19 09/27/19 09/27/19 17:34 17:50 18:53 WBC RBC Hgb Hct MCV MCH MCHC RDW Std Deviation RDW Coeff of Jagruti Plt Count MPV Immature Gran % (Auto) Neut % (Auto) Lymph % (Auto) [place] % (Auto) Eos % (Auto) Baso % (Auto) Absolute Neuts (auto) Absolute Lymphs (auto) Nucleated RBC % Diff Path Review PT INR APTT Sodium Potassium Chloride Carbon Dioxide Anion Gap BUN Creatinine Estim Creat Clear Calc Est GFR (MDRD) Af Amer Est GFR (MDRD) Non-Af BUN/Creatinine Ratio Glucose Hemoglobin A1c Serum Osmolality Lactic Acid 3.2 H Calcium Phosphorus Magnesium Total Bilirubin AST ALT Alkaline Phosphatase Troponin I Total Protein Albumin Globulin Albumin/Globulin Ratio Urine Color Urine Clarity Urine pH Ur Specific [place] Urine Protein Urine Glucose (UA) Urine Ketones Urine Occult Blood Urine Nitrite Urine Bilirubin Urine Urobilinogen Ur Leukocyte Esterase Urine RBC Urine WBC Ur Squamous Epith Cells Urine Bacteria Urine Mucus Acetone Level POC Glucose 267 H 281 H 09/27/19 09/27/19 09/27/19 19:52 20:50 22:02 WBC RBC Hgb Hct MCV MCH MCHC RDW Std Deviation RDW Coeff of Jagruti Plt Count MPV Immature Gran % (Auto) Neut % (Auto) Lymph % (Auto) [place] % (Auto) Eos % (Auto) Baso % (Auto) Absolute Neuts (auto) Absolute Lymphs (auto) Nucleated RBC % Diff Path Review PT INR APTT Sodium Potassium Chloride Carbon Dioxide Anion Gap BUN Creatinine Estim Creat Clear Calc Est GFR (MDRD) Af Amer Est GFR (MDRD) Non-Af BUN/Creatinine Ratio Glucose Hemoglobin A1c Serum Osmolality Lactic Acid Calcium Phosphorus Magnesium Total Bilirubin AST ALT Alkaline Phosphatase Troponin I Total Protein Albumin Globulin Albumin/Globulin Ratio Urine Color Urine Clarity Urine pH Ur Specific [place] Urine Protein Urine Glucose (UA) Urine Ketones Urine Occult Blood Urine Nitrite Urine Bilirubin Urine Urobilinogen Ur Leukocyte Esterase Urine RBC Urine WBC Ur Squamous Epith Cells Urine Bacteria Urine Mucus Acetone Level POC Glucose 262 H 239 H 260 H 09/27/19 09/27/19 09/27/19 22:19 22:58 23:56 WBC RBC Hgb Hct MCV MCH MCHC RDW Std Deviation RDW Coeff of Jagruti Plt Count MPV Immature Gran % (Auto) Neut % (Auto) Lymph % (Auto) [place] % (Auto) Eos % (Auto) Baso % (Auto) Absolute Neuts (auto) Absolute Lymphs (auto) Nucleated RBC % Diff Path Review PT INR APTT Sodium 157 H Potassium 3.3 L Chloride 128 H* Carbon Dioxide 24.0 Anion Gap 5 BUN 23 H Creatinine 1.24 Estim Creat Clear Calc 58.87 Est GFR (MDRD) Af Amer 74 Est GFR (MDRD) Non-Af 62 BUN/Creatinine Ratio 18.5 Glucose 280 H Hemoglobin A1c Serum Osmolality Lactic Acid Calcium 9.0 Phosphorus Magnesium Total Bilirubin AST ALT Alkaline Phosphatase Troponin I Total Protein Albumin Globulin Albumin/Globulin Ratio Urine Color Urine Clarity Urine pH Ur Specific [place] Urine Protein Urine Glucose (UA) Urine Ketones Urine Occult Blood Urine Nitrite Urine Bilirubin Urine Urobilinogen Ur Leukocyte Esterase Urine RBC Urine WBC Ur Squamous Epith Cells Urine Bacteria Urine Mucus Acetone Level POC Glucose 271 H 243 H 09/28/19 09/28/19 09/28/19 00:51 02:03 02:10 WBC RBC Hgb Hct MCV MCH MCHC RDW Std Deviation RDW Coeff of Jagruti Plt Count MPV Immature Gran % (Auto) Neut % (Auto) Lymph % (Auto) [place] % (Auto) Eos % (Auto) Baso % (Auto) Absolute Neuts (auto) Absolute Lymphs (auto) Nucleated RBC % Diff Path Review PT INR APTT Sodium 155 H Potassium 4.7 Chloride 125 H Carbon Dioxide 25.0 Anion Gap 5 BUN 21 H Creatinine 1.29 Estim Creat Clear Calc 56.59 Est GFR (MDRD) Af Amer 71 Est GFR (MDRD) Non-Af 59 L BUN/Creatinine Ratio 16.3 Glucose 258 H Hemoglobin A1c Serum Osmolality Lactic Acid Calcium 8.7 Phosphorus 2.9 Magnesium Total Bilirubin AST ALT Alkaline Phosphatase Troponin I Total Protein Albumin Globulin Albumin/Globulin Ratio Urine Color Urine Clarity Urine pH Ur Specific [place] Urine Protein Urine Glucose (UA) Urine Ketones Urine Occult Blood Urine Nitrite Urine Bilirubin Urine Urobilinogen Ur Leukocyte Esterase Urine RBC Urine WBC Ur Squamous Epith Cells Urine Bacteria Urine Mucus Acetone Level POC Glucose 218 H 194 H 09/28/19 09/28/19 09/28/19 02:10 02:10 04:01 WBC 12.9 H RBC 5.79 Hgb 17.5 H Hct 55.3 H MCV 95.5 H MCH 30.2 MCHC 31.6 L RDW Std Deviation 53.9 H RDW Coeff of Jagruti 15.6 H Plt Count 149 L MPV 10.1 Immature Gran % (Auto) 0.300 Neut % (Auto) 66.8 Lymph % (Auto) 22.7 [place] % (Auto) 8.9 Eos % (Auto) 0.8 Baso % (Auto) 0.5 Absolute Neuts (auto) 8.6 H Absolute Lymphs (auto) 2.93 Nucleated RBC % [address] Review PT INR APTT Sodium Potassium Chloride Carbon Dioxide Anion Gap BUN Creatinine Estim Creat Clear Calc Est GFR (MDRD) Af Amer Est GFR (MDRD) Non-Af BUN/Creatinine Ratio Glucose Hemoglobin A1c Serum Osmolality Lactic Acid Calcium Phosphorus Cancelled Magnesium Total Bilirubin AST ALT Alkaline Phosphatase Troponin I Total Protein Albumin Globulin Albumin/Globulin Ratio Urine Color Urine Clarity Urine pH Ur Specific [place] Urine Protein Urine Glucose (UA) Urine Ketones Urine Occult Blood Urine Nitrite Urine Bilirubin Urine Urobilinogen Ur Leukocyte Esterase Urine RBC Urine WBC Ur Squamous Epith Cells Urine Bacteria Urine Mucus Acetone Level POC Glucose 244 H 09/28/19 09/28/19 05:00 05:55 WBC RBC Hgb Hct MCV MCH MCHC RDW Std Deviation RDW Coeff of Jagruti Plt Count MPV Immature Gran % (Auto) Neut % (Auto) Lymph % (Auto) [place] % (Auto) Eos % (Auto) Baso % (Auto) Absolute Neuts (auto) Absolute Lymphs (auto) Nucleated RBC % Diff Path Review PT INR APTT Sodium 150 H Potassium 4.3 Chloride 121 H Carbon Dioxide 25.0 Anion Gap 4 L BUN 19 H Creatinine 1.24 Estim Creat Clear Calc 58.87 Est GFR (MDRD) Af Amer 74 Est GFR (MDRD) Non-Af 62 BUN/Creatinine Ratio 15.3 Glucose 378 H Hemoglobin A1c Serum Osmolality Lactic Acid Calcium 8.6 Phosphorus Magnesium 1.8 Total Bilirubin AST ALT Alkaline Phosphatase Troponin I Total Protein Albumin Globulin Albumin/Globulin Ratio Urine Color Urine Clarity Urine pH Ur Specific [place] Urine Protein Urine Glucose (UA) Urine Ketones Urine Occult Blood Urine Nitrite Urine Bilirubin Urine Urobilinogen Ur Leukocyte Esterase Urine RBC Urine WBC Ur Squamous Epith Cells Urine Bacteria Urine Mucus Acetone Level POC Glucose 220 H Clinical Impression(s) from Imaging Studies Chest X-Ray 09/27/19 13:06 IMPRESSION: Increased markings at the left lung base. Follow-up is recommended. Electronically Signed: Kurt Barb, at 13:26 EST , Service support , Brain CT 09/27/19 13:07 IMPRESSION: Chronic involutional changes of the brain. A right-sided ventriculoperitoneal shunt tube is seen with the tip in the left frontal horn. Stable atrophy and encephalomalacia involving the left frontal lobe as well as the cerebellum. Electronically Signed: Kurt Day, at 14:10 EST , Service support , Chest X-Ray 09/28/19 05:55 IMPRESSION: Minimal bilateral basilar atelectasis with possible left-sided pleural effusion versus pleural thickening. Otherwise no acute process identified, no significant change in the interval. Electronically Signed: Lazara Marquez MD at 5:54 EST , Service support , Current Medications Acetaminophen (Tylenol) 650 mg PO Q6H PRN PRN PRN Reason: Non-cardiac pain (mod-severe) Hydrocodone Bitart/Acetaminophen ([place] 5mg-325mg) 1 - 2 tablet PO Q4H PRN PRN PRN Reason: Pain Score 4-10/10 Al Hydroxide/Mg Hydroxide (Mylanta Ii) 15 - 30 ml PO Q4H PRN PRN PRN Reason: INDIGESTION Albuterol Sulfate (Ventolin Aerosols) 2.5 mg INHALATION Q2H PRN PRN PRN Reason: dyspnea, wheezing Amlodipine Besylate (Norvasc) 5 mg GT DAILY ETEL[facility]INA Artificial Tears (Tears [place], Artificial Tears) 2 drop EACH EYE TID ETELVINA Last Admin: 11/06/19 22:05 Dose: 2 drop Documented by: Aspirin (Aspirin, Baby) 81 mg PO DAILYCM ETELVINA Dextrose (D50w Syringe) 0 gm IV X1 PRN; Protocol PRN Reason: Hypoglycemia Protocol Dextrose (D50w Syringe) 0 gm IV X1 PRN; Protocol PRN Reason: Hypoglycemia Finasteride (Proscar) 5 mg PO DAILY ETELVINA Glucagon () 1 mg IM .X1 PRN PRN Reason: Hypoglycemia Guaifenesin (Robitussin) 10 ml PO Q4H PRN PRN PRN Reason: COUGH Heparin Sodium (Beef Lung) () 50 units IV UD PRN PRN Reason: PICC Line Heparin Flush Heparin Sodium (Porcine) (Heparin Na) 5,000 unit SC Q12 [facility] Last Admin: 09/27/19 22:05 Dose: 5,000 unit Documented by: Hydralazine HCl (Apresoline Iv) 10 mg IV Q4H PRN PRN PRN Reason: SBP > 160 Last Admin: 09/27/19 16:34 Dose: 10 mg Documented by: Insulin Human Lispro 100 unit/ (Sodium Chloride) 100 mls @ 4.545 mls/hr IV .Q22H1M [facility]; Protocol Last Titration: 09/28/19 06:00 Dose: 0.08 units/kg/hr, 7.4 mls/hr Documented by: Meropenem 1 gm/ Sodium (Chloride) 120 mls @ 97 mls/hr IV BID [facility] Last Infusion: 09/28/19 00:16 Dose: Infused Documented by: Sodium Chloride () 250 mls @ 15 mls/hr IV .[id number] PRN PRN Reason: Saline Flush Last Infusion: 09/28/19 00:49 Dose: 0 mls/hr Documented by: Potassium Chloride 20 meq/ (Dextrose) 1,010 mls @ 125 mls/hr IV .Q8H5M [facility] Last Infusion: 09/28/19 06:00 Dose: 125 mls/hr Documented by: Ketoconazole (Nizoral) 1 applic TOPICAL BID [facility]; Protocol Last Admin: 09/27/19 22:06 Dose: 1 applicatio Documented by: Magnesium Hydroxide (Milk Of Magnesia) 30 ml PO DAILY PRN PRN Reason: Constipation Melatonin (Melatonin) 3 mg PO QHS [facility] Last Admin: 09/27/19 22:15 Dose: Not Given Documented by: Morphine Sulfate () 1 - 2 mg IV Q4H PRN PRN PRN Reason: Pain Score 1-10/10 Last Admin: 09/28/19 01:07 Dose: 2 mg Documented by: Nitroglycerin (Nitrostat) 0.4 mg SUBLINGUAL Q5M PRN PRN Reason: CARDIAC/CHEST PAIN Ondansetron HCl (Zofran) 4 mg IV Q8H PRN PRN PRN Reason: NAUSEA/VOMITING Pantoprazole Sodium (Protonix) 20 mg PO BID [facility] Last Admin: 09/27/19 22:16 Dose: Not Given Documented by: Polyethylene Glycol (Miralax) 17 gm PO DAILY [facility] Quetiapine Fumarate (Seroquel) 25 mg PO QHS [facility] Last Admin: 09/27/19 22:16 Dose: Not Given Documented by: Senna/Docusate Sodium (Senokot-S, Lora-Colace) 2 tablet GT BID [facility] Last Admin: 09/27/19 22:16 Dose: Not Given Documented by: Sodium Chloride () 10 - 40 ml IV UD PRN PRN Reason: Open End PICC Flush Last Admin: 09/28/19 01:09 Dose: 40 ml Documented by: Sodium Chloride (0.9% Nacl (Sterile) Posiflush) 10 - 40 ml IV UD PRN PRN Reason: Port access or dressing change Sodium Chloride () 10 - 40 ml IV UD PRN PRN Reason: SALINE FLUSH Tamsulosin HCl (Flomax) 0.4 mg PO DAILY@1730 [facility] Last Admin: 09/27/19 16:44 Dose: Not Given Documented by: Throat Lozenges (Cepacol Sore Throat Lozenge) 1 lozenge MUCOUS MEM Q2H PRN PRN PRN Reason: Sore Throat/Cough Assessment/Plan Active and Suspected Problems Septic shock (Acute) Complicated UTI (urinary tract infection) (Acute) Urinary retention (Acute) Hyperosmolar hyperglycemic coma due to diabetes mellitus without ketoacidosis (Acute) RECOMMENDATIONS: 1. Continue D5W given elevated sodium and chloride levels. 2. Discontinue IV morphine. 3. Patient to remain n.p.o. pending evaluation by speech therapy. 4. Transition from continuous insulin infusion to basal insulin and sliding scale coverage. IMPRESSIONS: 1. Severe sepsis with presumed urinary source of infection The patient has been adequately volume resuscitated and never required vasopressor support. Recommend continuing broad-spectrum antimicrobial coverage, pending infectious work-up. Infectious diseases is currently following. 2. Hypernatremia/hyperchloremia Likely secondary to overall free water deficit coupled with normal saline administration initially. The patient is now on D5W with plans to continue, pending improvement in labs. 3. Acute kidney injury Likely prerenal in etiology. The patient's creatinine has stabilized following volume resuscitation. Continue to monitor urine output. No current indication for renal replacement therapy. 4. Hyperosmolar hyperglycemic state The patient was never previously noted to be diabetic. He was initially treated with a continuous insulin infusion, which will be transition to basal insulin and sliding scale coverage. The patient will be started on a low-dose amount of basal insulin, given his current n.p.o. status. This can be increased once his diet has been advanced. 5. Metabolic encephalopathy Likely metabolic in etiology with underlying sepsis contributing. At the present time, the patient appears to be at his baseline mental state. CT head revealed no acute process. Continue current supportive measures. 6. Prior CVA with residual deficit/right upper extremity DVT/posterior circulation CVA/hydrocephalus with CAROUSEL ATTENDANT shunt Complicates care, management, recovery and prognosis. Continue home medications as indicated. Physical therapy evaluation pending. Given the patient's issues in the past with swallowing, patient has been made n.p.o. pending evaluation by speech therapy. This note was generated with [employer] dictation software. It may contain incorrect words, spelling, and punctuation that were not noted in checking the note before signing. Code Visit Inpatient E&M: 39557 Init Hosp L3
[2019-09-28 07:20] LABS: Bedside Glucose 210 mg/dL (70-110)
[2019-09-28 08:06] LABS: Bedside Glucose 151 mg/dL (70-110)
--- NOTE | 2019-09-28 08:14 | PCM.PN.HOSP ---
Patient Problems: Active and Suspected Problems Septic shock (Acute) Complicated UTI (urinary tract infection) (Acute) Urinary retention (Acute) Hyperosmolar hyperglycemic coma due to diabetes mellitus without ketoacidosis (Acute) Subjective: The patient is confused and disoriented x4, time, place, person and situation on baseline major cognitive deficit secondary to stroke and consequent hydrocephalus with SEED TESTER shunt and recurrent surgery for SEED TESTER shunt occlusion/malfunction. As per ER documentation, his baseline is that he can feed himself and transfer to wheelchair. No reported fever, vomiting or diarrhea. Patient is very hard of hearing. Initially was brought to ER from SNF for increased confusion and change in mental status. Vitals/I&O's: Vital Signs Temp Pulse Resp BP Pulse Ox 97.3 F L 87 15 156/80 H 96 09/28/19 06:00 09/28/19 08:00 09/28/19 06:00 09/28/19 06:00 09/28/19 06:45 Oxygen Flow Rate (L/min) 2 Oxygen Delivery Method Room Air Weight: 197 lb 5.019 oz Body Mass Index (BMI) 27.8 Finger Stick Blood Glucose 151 Intake and Output for Last 24 Hours 09/26/19 09/27/19 09/28/19 23:59 23:59 23:59 Intake Total 3162.27 / 3733.71 1786.30 / 1786.30 Output Total 1150 / 1150 250 / 250 Balance / 2583.71 1536.30 / 1536.30 General: Confused, Disoriented, Lethargic HEENT: PERRLA, EOMI, - - Left-sided facial droop from previous stroke Oral: Dry Mucosa Neck: Supple, No JVD, Negative Carotid Bruits Lungs: Clear to auscultation, No rhonchi, No wheeze, No rales, Diminished - Air entry diminished on left lung base Cardiovascular: Regular rate, Regular Rhythm, Normal S1, Normal S2 Abdomen: Bowel Sounds Present, Soft, Non Tender, Non-Distended, - - Reese catheter inserted in ED Extremities: No edema, Capillary Refill Less than 3 Seconds Musculoskeletal: No Tenderness to Palpation of Joints or Extremities, Arthritic Changes, Muscle Wasting Neurological: - - Neurological deficit from previous stroke with left-sided facial droop and weakness. Exact specific neuro exam unobtainable secondary to patient confusion and inability to follow instructions Laboratory Results 09/27/19 12:26: Sodium 151 H, Potassium 3.8, Chloride 119 H, Carbon Dioxide 23.0, Anion Gap 9, BUN 33 H, Creatinine 2.15 H, Estim Creat Clear Calc 36.09, Est GFR (MDRD) Af Amer 39 L, Est GFR (MDRD) Non-Af 33 L, BUN/Creatinine Ratio 15.3, Glucose 634 H*, Calcium 10.4 H, Total Bilirubin 0.90, AST 39 H, ALT 40, Alkaline Phosphatase 144 H, Troponin I 0.035, Total Protein 9.7 H, Albumin 4.1, Globulin 5.6 H, Albumin/Globulin Ratio 0.7 L 09/27/19 12:26: WBC 11.2 H, RBC 6.41 H, Hgb 19.4 H*, Hct 60.8 H, MCV 94.9 H, MCH 30.3, MCHC 31.9 L, RDW Std Deviation 53.2 H, RDW Coeff of Jagruti 16.8 H, Plt Count 169, MPV 11.2, Immature Gran % (Auto) 0.300, Neut % (Auto) 79.0 H, Lymph % (Auto) 12.3 L, Billings % (Auto) 7.9, Eos % (Auto) 0.1, Baso % (Auto) 0.4, Absolute Neuts (auto) 8.8 H, Absolute Lymphs (auto) 1.37, Nucleated RBC % 0, Diff Path Review March09/27/19 12:26: Phosphorus 3.6, Magnesium 2.5 09/27/19 12:26: Hemoglobin A1c 9.7 H 09/27/19 12:55: POC Glucose > 500 H* 09/27/19 13:25: Lactic Acid 4.5 H* 09/27/19 13:30: Urine Color Yellow, Urine Clarity Cloudy, Urine pH 5.0, Ur Specific Browns 1.015, Urine Protein 100 H, Urine Glucose (UA) 1000 H, Urine Ketones 5 H, Urine Occult Blood 250 H, Urine Nitrite Negative, Urine Bilirubin Negative, Urine Urobilinogen Normal, Ur Leukocyte Esterase 500 H, Urine RBC 10-25 SEEN, Urine WBC 25-50 SEEN, Ur Squamous Epith Cells 0 SEEN, Urine Bacteria 4+, Urine Mucus 0 SEEN 09/27/19 13:55: PT 14.5, INR 1.2, APTT 25.9 09/27/19 15:49: POC Glucose 397 H 09/27/19 16:46: POC Glucose 302 H 09/27/19 17:34: Serum Osmolality 351 H, Acetone Level NEGATIVE 09/27/19 17:34: Sodium 157 H, Potassium 3.3 L, Chloride 129 H*, Carbon Dioxide 23.0, Anion Gap 5, BUN 29 H, Creatinine 1.69 H, Estim Creat Clear Calc 43.20, Est GFR (MDRD) Af Amer 52 L, Est GFR (MDRD) Non-Af 43 L, BUN/Creatinine Ratio 17.2, Glucose 306 H, Calcium 9.4 09/27/19 17:34: Lactic Acid 3.2 H 09/27/19 17:50: POC Glucose 267 H 09/27/19 18:53: POC Glucose 281 H 09/27/19 19:52: POC Glucose 262 H 09/27/19 20:50: POC Glucose 239 H 09/27/19 22:02: POC Glucose 260 H 09/27/19 22:19: Sodium 157 H, Potassium 3.3 L, Chloride 128 H*, Carbon Dioxide 24.0, Anion Gap 5, BUN 23 H, Creatinine 1.24, Estim Creat Clear Calc 58.87, Est GFR (MDRD) Af Amer 74, Est GFR (MDRD) Non-Af 62, BUN/Creatinine Ratio 18.5, Glucose 280 H, Calcium 9.0 09/27/19 22:58: POC Glucose 271 H 09/27/19 23:56: POC Glucose 243 H 09/28/19 00:51: POC Glucose 218 H 09/28/19 02:03: POC Glucose 194 H 09/28/19 02:10: Sodium 155 H, Potassium 4.7, Chloride 125 H, Carbon Dioxide 25.0, Anion Gap 5, BUN 21 H, Creatinine 1.29, Estim Creat Clear Calc 56.59, Est GFR (MDRD) Af Amer 71, Est GFR (MDRD) Non-Af 59 L, BUN/Creatinine Ratio 16.3, Glucose 258 H, Calcium 8.7, Phosphorus 2.9 09/28/19 02:10: WBC 12.9 H, RBC 5.79, Hgb 17.5 H, Hct 55.3 H, MCV 95.5 H, MCH 30.2, MCHC 31.6 L, RDW Std Deviation 53.9 H, RDW Coeff of Jagruti 15.6 H, Plt Count 149 L, MPV 10.1, Immature Gran % (Auto) 0.300, Neut % (Auto) 66.8, Lymph % (Auto) 22.7, Billings % (Auto) 8.9, Eos % (Auto) 0.8, Baso % (Auto) 0.5, Absolute Neuts (auto) 8.6 H, Absolute Lymphs (auto) 2.93, Nucleated RBC % 0 09/28/19 02:10: Phosphorus Cancelled 09/28/19 04:01: POC Glucose 244 H 09/28/19 05:00: POC Glucose 220 H 09/28/19 05:54: POC Glucose 210 H 09/28/19 05:55: Sodium 150 H, Potassium 4.3, Chloride 121 H, Carbon Dioxide 25.0, Anion Gap 4 L, BUN 19 H, Creatinine 1.24, Estim Creat Clear Calc 58.87, Est GFR (MDRD) Af Amer 74, Est GFR (MDRD) Non-Af 62, BUN/Creatinine Ratio 15.3, Glucose 378 H, Calcium 8.6, Magnesium 1.8 09/28/19 08:00: POC Glucose 151 H Current Medications Acetaminophen (Tylenol) 650 mg PO Q6H PRN PRN PRN Reason: Non-cardiac pain (mod-severe) Hydrocodone Bitart/Acetaminophen (Costa 5mg-325mg) 1 - 2 tablet PO Q4H PRN PRN PRN Reason: Pain Score 4-10/10 Al Hydroxide/Mg Hydroxide (Mylanta Ii) 15 - 30 ml PO Q4H PRN PRN PRN Reason: INDIGESTION Albuterol Sulfate (Ventolin Aerosols) 2.5 mg INHALATION Q2H PRN PRN PRN Reason: dyspnea, wheezing Amlodipine Besylate (Norvasc) 5 mg PO DAILY ETELVINA Artificial Tears (Tears Naturale, Artificial Tears) 2 drop EACH EYE TID ETELVINA Last Admin: 09/28/19 06:45 Dose: Not Given Documented by: Aspirin (Aspirin, Baby) 81 mg PO DAILYCM ETELVINA Dextrose (D50w Syringe) 0 gm IV X1 PRN; Protocol PRN Reason: Hypoglycemia Protocol Dextrose (D50w Syringe) 0 gm IV X1 PRN; Protocol PRN Reason: Hypoglycemia Finasteride (Proscar) 5 mg PO DAILY ETELVINA Glucagon () 1 mg IM .X1 PRN PRN Reason: Hypoglycemia Guaifenesin (Robitussin) 10 ml PO Q4H PRN PRN PRN Reason: COUGH Heparin Sodium (Beef Lung) () 50 units IV UD PRN PRN Reason: PICC Line Heparin Flush Heparin Sodium (Porcine) (Heparin Na) 5,000 unit SC Q12 ETELVINA Last Admin: 09/27/19 22:05 Dose: 5,000 unit Documented by: Hydralazine HCl (Apresoline Iv) 10 mg IV Q4H PRN PRN PRN Reason: SBP > 160 Last Admin: 09/27/19 16:34 Dose: 10 mg Documented by: Insulin Human Lispro 100 unit/ (Sodium Chloride) 100 mls @ 4.545 mls/hr IV .Q22H1M [facility]; Protocol Last Titration: 09/28/19 08:02 Dose: 0.06 units/kg/hr, 5.4 mls/hr Documented by: Meropenem 1 gm/ Sodium (Chloride) 120 mls @ 97 mls/hr IV BID [facility] Last Infusion: 09/28/19 00:16 Dose: Infused Documented by: Sodium Chloride () 250 mls @ 15 mls/hr IV .[id number] PRN PRN Reason: Saline Flush Last Infusion: 09/28/19 00:49 Dose: 0 mls/hr Documented by: Potassium Chloride 20 meq/ (Dextrose) 1,010 mls @ 125 mls/hr IV .Q8H5M [facility] Last Infusion: 09/28/19 06:00 Dose: 125 mls/hr Documented by: Ketoconazole (Nizoral) 1 applic TOPICAL BID [facility]; Protocol Last Admin: 09/27/19 22:06 Dose: 1 applicatio Documented by: Magnesium Hydroxide (Milk Of Magnesia) 30 ml PO DAILY PRN PRN Reason: Constipation Melatonin (Melatonin) 3 mg PO QHS [facility] Last Admin: 09/27/19 22:15 Dose: Not Given Documented by: Nitroglycerin (Nitrostat) 0.4 mg SUBLINGUAL Q5M PRN PRN Reason: CARDIAC/CHEST PAIN Ondansetron HCl (Zofran) 4 mg IV Q8H PRN PRN PRN Reason: NAUSEA/VOMITING Pantoprazole Sodium (Protonix) 20 mg PO BID [facility] Last Admin: 09/27/19 22:16 Dose: Not Given Documented by: Polyethylene Glycol (Miralax) 17 gm PO DAILY [facility] Quetiapine Fumarate (Seroquel) 25 mg PO QHS [facility] Last Admin: 09/27/19 22:16 Dose: Not Given Documented by: Senna/Docusate Sodium (Senokot-S, Lora-Colace) 2 tablet PO BID [facility] Sodium Chloride () 10 - 40 ml IV UD PRN PRN Reason: Open End PICC Flush Last Admin: 09/28/19 01:09 Dose: 40 ml Documented by: Sodium Chloride (0.9% Nacl (Sterile) Posiflush) 10 - 40 ml IV UD PRN PRN Reason: Port access or dressing change Sodium Chloride () 10 - 40 ml IV UD PRN PRN Reason: SALINE FLUSH Tamsulosin HCl (Flomax) 0.4 mg PO DAILY@1730 [facility] Last Admin: 09/27/19 16:44 Dose: Not Given Documented by: Throat Lozenges (Cepacol Sore Throat Lozenge) 1 lozenge MUCOUS MEM Q2H PRN PRN PRN Reason: Sore Throat/Cough STROKE Vital Signs/Narrative: Vital Signs Temp Pulse Resp BP Pulse Ox 09/28/19 08:00 87 09/28/19 06:45 96 09/28/19 06:00 97.3 F L 85 15 156/80 H 93 09/28/19 05:00 97.0 F L 94 16 149/88 H 96 Medical Necessity - Tobacco Use Smoking Status: Former smoker Tobacco Use: Non-smoker Assessment/Plan All Active Problems Septic shock (Acute) Complicated UTI (urinary tract infection) (Acute) Urinary retention (Acute) Hyperosmolar hyperglycemic coma due to diabetes mellitus without ketoacidosis (Acute) Severe sepsis (Acute) UTI (urinary tract infection) (Acute) Acute kidney injury (Acute) Aspiration into airway (Acute) UTI (urinary tract infection) (Acute) Respiratory failure (Acute) The patient is a 69 y/o M WITH HISTORY OF CVA secondary to arterial occlusion/stenosis, possibly Basilar, Hydrocephalus s/p SEED TESTER Shunt malfunction and the surgery, COPD, HTN, HLD, BPH, Anxiety and Depression, retirement resident with dependent ADL was brought into ER for progressive worsening of confusion, lethargy, altered mental status. In ED, she was found to have hypoglycemia 634, sodium 157, chloride 129, BUN/creatinine 29/1.69, UA showing pyuria WBC 25-50 cells, bacteria 4+, RBC 10-25, LE 500 but nitrite negative. Reese catheter was inserted, started on IV meropenem, IV fluid resuscitation and admitted in ICU. In ICU, patient had low-grade temperature T-max 99.6 but patient is more awake. 1. Severe sepsis complicated UTI: Patient was hemodynamically stable in ICU and blood pressure between 130s to 150s. Lactic acid was elevated 4.5 in ER most probably secondary to hypovolemia and hypoperfusion probably from HHS. Lactic acid improved to 3.2 with IV fluid rehydration. Urine culture from January 2017 shows Proteus mirabilis more than 100,000; E. coli MDRO ESBL positive in November 2016 and therefore started on meropenem and started and continued. Patient also has history of BPH and is on Flomax and finasteride. Blood cultures x2 and urine culture are pending. (2) Hyperglycemic Hyperosmolar State with new onset diabetes mellitus type II: Patient had about 3 L of normal saline overnight and other insulin drip which is transitioned to Accu-Cheks with basal and sliding scale Humalog coverage. A1c 9.7, serum osmolality 351, serum acetone negative. (3) Acute kidney injury most probably prerenal from HHS/possible ATN, sepsis from UTI. Admission BUN/Cr 33/2.15, prior baseline creatinine noted to be 1.0-1.2. Kidney function returned to his baseline, most recent . Rest as mentioned above. Hold nephrotoxic medications and monitor kidney function, intake and output. Urine is yellowish tinge with pus flecks noted in Reese catheter. (4) Acute Encephalopathy, Metabolic, Infectious secondary to sepsis, HHS and acute kidney injury as mentioned above: Patient has limited and dependent ADL and chronic neurological deficit. Underlying disorder. (5) history of a stroke with complicated hydrocephalus s/p SEED TESTER Shunt: CT head with chronic involutional changes with a right-sided SEED TESTER shunt identified with the tip in the left frontal horn with stable atrophy and encephalomalacia involving the left frontal lobe as well as the cerebellum. On baby aspirin. (6) Hypertension: Blood pressure mildly elevated. Titrate antihypertensive medication as per blood pressure. (7) COPD: Continue bronchodilator, bronchopulmonary hygiene incentive spirometry and chest physiotherapy. (8) Anxiety and Depression: continue home q HS seroquel regimen; hold for sedation/lethargic (9) GERD: PPI. (10) DVT prophylaxis: SCDs, heparin. CODE STATUS/advanced directive: DNR CC arrest Code Visit Inpatient E&M: 11967 Subs Hosp L3
--- NOTE | 2019-09-28 09:31 | CASEMGMT ---
Pt's daughter has guardianship of pt, form stating that Anna Cruz is guardian of pt since September 05, 2015 is in the summary tab of the echart. RUFINO Frank
[2019-09-28] MEDS: Polyethylene Glycol 3350 17 GM PACKET PO (10:07)
[2019-09-28] MEDS: Heparin Injection (Vial) 5,000 UNIT/ML VIAL 5000 UNIT SC ×2 (10:08→21:59)
[2019-09-28] MEDS: Aspirin 81 MG TAB.CHEW PO (10:08)
[2019-09-28] MEDS: amLODIPine 5 MG Tablet PO (10:08)
[2019-09-28] MEDS: Finasteride 5 MG Tablet PO (10:09)
[2019-09-28] MEDS: Senna/Docusate Sodium 1 Tablet 2 TABLET PO ×2 (10:09→22:00)
[2019-09-28] MEDS: Ketoconazole Cream 1 APPLIC TOPICAL ×2 (10:09→22:16)
[2019-09-28] MEDS: Famotidine 20 MG Tablet PO ×2 (10:10→22:00)
--- NOTE | 2019-09-28 10:12 | CASEMGMT ---
FLOYD participated in ICU rounds, pt is here from [facility]. Pt's daughter Anna Cruz is his guardian, she is here and asked to speak to FLOYD. FLOYD spoke w/Anna in room, she confirmed pt is here from [facility] private pay and will return. She asked about the Medicare benefit. FLOYD explained if pt is here 3 midnights then [facility] can take pt back skilled, bill Medicare and he would be covered days 1-20 at 100% and days 21-100, all but a copay. Daughter was not sure if pt has a secondary insurance or not, but she did think pt has a prescription plan. She is fine w/pt returning private pay but was hopeful if he is here long enough could return under Medicare so he could get therapy. She is uncertain about finances as pt has a different person who is the financial guardian. FLOYD explained will look into it and let her know. Floyd called [facility], spoke w/Inna. She reviewed pt's insurance. She states pt has a secondary, [employer] [place], but does not have a prescription plan. FLOYD also asked Inna if pt returns before he gets 3 midnights in, can they have pt be seen for therapies and bill Medicare part B. She states they should be able to do this. FLOYD faxed updates to Inna. FLOYD called registration and gave them pt's secondary insurance information. FLOYD called daughter back. SW let her know that they can bill Medicare part B for pt to get therapy even if he does not get three midnights in under Medicare. SW also let her know that as per Inna, [employer] [place] is a secondary Medicare plan and pt does not have prescription coverage. She thought pt did have prescription coverage, she will reach out to pt's financial guardian for clarification. Plan: return to [facility] when medically ready. If pt is here for three midnights he can return skilled under Medicare. Otherwise is pt is here less than three midnights [facility] will bill Medicare part B for therapies. Transport form on chart. RUFINO Frank
--- NOTE | 2019-09-28 10:34 | PCM.HP.ID ---
Problem List (1) UTI (urinary tract infection) Status: Acute Reason for Consult: severe sepsis Consulted by: Dr. Patel History of Present Illness: The patient is a 69 year old M with prior stroke, DM, COPD who presented from [facility] with acute onset altered mental status. No fever here, but had severe sepsis on presentation. Admitted to icu on meropenem. Pt unable to provide history due to mental status. ROS unobtainable. 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 needing contact precautions Stage 1 decubitus ulcer (Chronic) Allergies/Adverse Reactions: Allergies No Known Allergies Allergy (Verified 09/27/19 12:17) Home Medications: Ambulatory Orders Medication Instructions Recorded Polyvinyl Alcohol [Artificial 2 drop EACHEYE TID 11/25/16 Tears] Acetaminophen [Acetaminophen 8 650 mg PO Q4H PRN PRN 02/16/17 Hour] Meclizine HCl [Antivert] 12.5 mg PO DAILY 02/16/17 Amlodipine [Norvasc] 5 mg PO DAILY 09/27/19 Aspirin 81 mg PO DAILY 09/27/19 Finasteride 5 mg PO DAILY 09/27/19 Insulin Aspart [Novolog Flexpen See Protocol SUBCUT TID 09/27/19 ([facility])] Ketoconazole [Nizoral] 1 applic TOPICAL BID 09/27/19 Melatonin 3 mg PO QHS 09/27/19 Polyethylene Glycol 3350 [Miralax] 17 gm PO DAILY 09/27/19 Quetiapine Fumarate [Seroquel] 25 mg PO QHS 09/27/19 Sennosides/Docusate Sodium 2 ea PO BID 09/27/19 [Senexon-S Tablet] - Social History SMOKING STATUS:: Former smoker - Patient was previously a heavy smoker Vital Signs Temp Pulse Resp BP Pulse Ox 97.3 F L 87 15 156/80 H 96 09/28/19 06:00 09/28/19 08:00 09/28/19 06:00 09/28/19 06:00 09/28/19 06:45 Oxygen Flow Rate (L/min) 2 Oxygen Delivery Method Room Air Weight: 89.5 kg Body Mass Index (BMI) 27.8 Finger Stick Blood Glucose 151 Laboratory Tests Past 24 Hrs 09/27/19 09/27/19 09/27/19 12:26 12:26 12:26 WBC 11.2 H RBC 6.41 H Hgb 19.4 H* Hct 60.8 H MCV 94.9 H MCH 30.3 MCHC 31.9 L RDW Std Deviation 53.2 H RDW Coeff of Jagruti 16.8 H Plt Count 169 MPV 11.2 Immature Gran % (Auto) 0.300 Neut % (Auto) 79.0 H Lymph % (Auto) 12.3 L Irwin % (Auto) 7.9 Eos % (Auto) 0.1 Baso % (Auto) 0.4 Absolute Neuts (auto) 8.8 H Absolute Lymphs (auto) 1.37 Nucleated RBC % 0 Diff Path Review May foll PT INR APTT Sodium 151 H Potassium 3.8 Chloride 119 H Carbon Dioxide 23.0 Anion Gap 9 BUN 33 H Creatinine 2.15 H Estim Creat Clear Calc 36.09 Est GFR (MDRD) Af Amer 39 L Est GFR (MDRD) Non-Af 33 L BUN/Creatinine Ratio 15.3 Glucose 634 H* Hemoglobin A1c Serum Osmolality Lactic Acid Calcium 10.4 H Phosphorus 3.6 Magnesium 2.5 Total Bilirubin 0.90 AST 39 H ALT 40 Alkaline Phosphatase 144 H Troponin I 0.035 Total Protein 9.7 H Albumin 4.1 Globulin 5.6 H Albumin/Globulin Ratio 0.7 L Urine Color Urine Clarity Urine pH Ur Specific Meridian Urine Protein Urine Glucose (UA) Urine Ketones Urine Occult Blood Urine Nitrite Urine Bilirubin Urine Urobilinogen Ur Leukocyte Esterase Urine RBC Urine WBC Ur Squamous Epith Cells Urine Bacteria Urine Mucus Acetone Level 09/27/19 09/27/19 09/27/19 12:26 13:25 13:30 WBC RBC Hgb Hct MCV MCH MCHC RDW Std Deviation RDW Coeff of Jagruti Plt Count MPV Immature Gran % (Auto) Neut % (Auto) Lymph % (Auto) Irwin % (Auto) Eos % (Auto) Baso % (Auto) Absolute Neuts (auto) Absolute Lymphs (auto) Nucleated RBC % Diff Path Review PT INR APTT Sodium Potassium Chloride Carbon Dioxide Anion Gap BUN Creatinine Estim Creat Clear Calc Est GFR (MDRD) Af Amer Est GFR (MDRD) Non-Af BUN/Creatinine Ratio Glucose Hemoglobin A1c 9.7 H Serum Osmolality Lactic Acid 4.5 H* Calcium Phosphorus Magnesium Total Bilirubin AST ALT Alkaline Phosphatase Troponin I Total Protein Albumin Globulin Albumin/Globulin Ratio Urine Color Yellow Urine Clarity Cloudy Urine pH 5.0 Ur Specific Meridian 1.015 Urine Protein 100 H Urine Glucose (UA) 1000 H Urine Ketones 5 H Urine Occult Blood 250 H Urine Nitrite Negative Urine Bilirubin Negative Urine Urobilinogen Normal Ur Leukocyte Esterase 500 H Urine RBC 10-25 SEEN Urine WBC 25-50 SEEN Ur Squamous Epith Cells 0 SEEN Urine Bacteria 4+ Urine Mucus 0 SEEN Acetone Level 09/27/19 09/27/19 09/27/19 13:55 17:34 17:34 WBC RBC Hgb Hct MCV MCH MCHC RDW Std Deviation RDW Coeff of Jagruti Plt Count MPV Immature Gran % (Auto) Neut % (Auto) Lymph % (Auto) Irwin % (Auto) Eos % (Auto) Baso % (Auto) Absolute Neuts (auto) Absolute Lymphs (auto) Nucleated RBC % Diff Path Review PT 14.5 INR 1.2 APTT 25.9 Sodium 157 H Potassium 3.3 L Chloride 129 H* Carbon Dioxide 23.0 Anion Gap 5 BUN 29 H Creatinine 1.69 H Estim Creat Clear Calc 43.20 Est GFR (MDRD) Af Amer 52 L Est GFR (MDRD) Non-Af 43 L BUN/Creatinine Ratio 17.2 Glucose 306 H Hemoglobin A1c Serum Osmolality 351 H Lactic Acid Calcium 9.4 Phosphorus Magnesium Total Bilirubin AST ALT Alkaline Phosphatase Troponin I Total Protein Albumin Globulin Albumin/Globulin Ratio Urine Color Urine Clarity Urine pH Ur Specific Meridian Urine Protein Urine Glucose (UA) Urine Ketones Urine Occult Blood Urine Nitrite Urine Bilirubin Urine Urobilinogen Ur Leukocyte Esterase Urine RBC Urine WBC Ur Squamous Epith Cells Urine Bacteria Urine Mucus Acetone Level NEGATIVE 09/27/19 09/27/19 09/28/19 17:34 22:19 02:10 WBC RBC Hgb Hct MCV MCH MCHC RDW Std Deviation RDW Coeff of Jagruti Plt Count MPV Immature Gran % (Auto) Neut % (Auto) Lymph % (Auto) Irwin % (Auto) Eos % (Auto) Baso % (Auto) Absolute Neuts (auto) Absolute Lymphs (auto) Nucleated RBC % Diff Path Review PT INR APTT Sodium 157 H 155 H Potassium 3.3 L 4.7 Chloride 128 H* 125 H Carbon Dioxide 24.0 25.0 Anion Gap 5 5 BUN 23 H 21 H Creatinine 1.24 1.29 Estim Creat Clear Calc 58.87 56.59 Est GFR (MDRD) Af Amer 74 71 Est GFR (MDRD) Non-Af 62 59 L BUN/Creatinine Ratio 18.5 16.3 Glucose 280 H 258 H Hemoglobin A1c Serum Osmolality Lactic Acid 3.2 H Calcium 9.0 8.7 Phosphorus 2.9 Magnesium Total Bilirubin AST ALT Alkaline Phosphatase Troponin I Total Protein Albumin Globulin Albumin/Globulin Ratio Urine Color Urine Clarity Urine pH Ur Specific Meridian Urine Protein Urine Glucose (UA) Urine Ketones Urine Occult Blood Urine Nitrite Urine Bilirubin Urine Urobilinogen Ur Leukocyte Esterase Urine RBC Urine WBC Ur Squamous Epith Cells Urine Bacteria Urine Mucus Acetone Level 09/28/19 09/28/19 09/28/19 02:10 02:10 05:55 WBC 12.9 H RBC 5.79 Hgb 17.5 H Hct 55.3 H MCV 95.5 H MCH 30.2 MCHC 31.6 L RDW Std Deviation 53.9 H RDW Coeff of Jagruti 15.6 H Plt Count 149 L MPV 10.1 Immature Gran % (Auto) 0.300 Neut % (Auto) 66.8 Lymph % (Auto) 22.7 Irwin % (Auto) 8.9 Eos % (Auto) 0.8 Baso % (Auto) 0.5 Absolute Neuts (auto) 8.6 H Absolute Lymphs (auto) 2.93 Nucleated RBC % [address] Review PT INR APTT Sodium 150 H Potassium 4.3 Chloride 121 H Carbon Dioxide 25.0 Anion Gap 4 L BUN 19 H Creatinine 1.24 Estim Creat Clear Calc 58.87 Est GFR (MDRD) Af Amer 74 Est GFR (MDRD) Non-Af 62 BUN/Creatinine Ratio 15.3 Glucose 378 H Hemoglobin A1c Serum Osmolality Lactic Acid Calcium 8.6 Phosphorus Cancelled Magnesium 1.8 Total Bilirubin AST ALT Alkaline Phosphatase Troponin I Total Protein Albumin Globulin Albumin/Globulin Ratio Urine Color Urine Clarity Urine pH Ur Specific Meridian Urine Protein Urine Glucose (UA) Urine Ketones Urine Occult Blood Urine Nitrite Urine Bilirubin Urine Urobilinogen Ur Leukocyte Esterase Urine RBC Urine WBC Ur Squamous Epith Cells Urine Bacteria Urine Mucus Acetone Level - Other Studies Radiology: [] reviewed Other Studies: [] Route of nutrition/ use of supplements: [] Nutritional Intake: [] IV Site: [] Reese Catheter: [] - Physical Exam General: Alert, Cooperative, - - oriented x1 HEENT: Atraumatic, PERRLA, EOMI Neck: Supple, No Nodes Lungs: - - scattered rhonchi Cardiovascular: Regular rate, Regular Rhythm Abdomen: Soft, Non Tender, Non-Distended Extremities: No edema Skin: No rashes IV Site: Peripheral, without redness Musculoskeletal: No Tenderness to Palpation of Joints or Extremities Neurological: Facial Droop - Assessment/Plan Antibiotics: [] Assessment/Plan: [] Active and Suspected Problems Septic shock (Acute) Complicated UTI (urinary tract infection) (Acute) Urinary retention (Acute) Hyperosmolar hyperglycemic coma due to diabetes mellitus without ketoacidosis (Acute) severe sepsis due to suspected uti - leukocytosis, tachycardia, lactic acidosis, CHRISTINA. Labs and vital improved. Has past ucx with ESBL. Cont meropenem. Will follow, thank you.
[2019-09-28 11:17] LABS: Pathologist Review Reviewed
[2019-09-28 12:20] LABS: Bedside Glucose 393 mg/dL (70-110)
[2019-09-28] MEDS: Insulin Lispro 100 UNIT/ML INSULN.PEN SC ×3 (12:21→22:11)
--- NOTE | 2019-09-28 14:31 | CHAPLAIN ---
Type of Pastoral Visit _x__ Initial Visit ___ Follow-up Visit ___ On-call Visit ___ General Patient Visit ___ Spiritual Assessment ___ Family Conference ___ Bereavement ___ Rapid Response ___ Code Blue ___ Other (describe below) Pastoral Care Referral From ___ Patient _x__ Family ___ Nurse ___ Physician ___ Honing Machine Operator Tool ___ Post Anesthesia Nurse ___ Other (describe below) Sacrament/Intervention _x__ Active listening ___ Anointing ___ Holiness ___ Bereavement ___ Communion ___ Nidia exploration ___ ___ Life review _x__ Prayer ___ Reconciliation ___ Sacrament of Sick _x__ Supportive presence ___ Wedding ___ Other (describe below) Pastoral Comments
[2019-09-28 16:15] LABS: Bedside Glucose 297 mg/dL (70-110)
[2019-09-28] MEDS: Tamsulosin HCl 0.4 MG Capsule PO (17:53)
[2019-09-28] MEDS: QUEtiapine 25 MG Tablet PO (22:00)
[2019-09-28] MEDS: MELATONIN 3 MG TABLET PO (22:00)
[2019-09-29] VITALS (9 sets, daily range): BP systolic 108–131; BP diastolic 72–95; PULSE 74–94; RESP 13–18; TEMP 36.5–36.9; O2SAT 92–98
--- NOTE | 2019-09-29 00:36 | NURSING ---
IV start attempted x 3. Called IAN [facility] home supervisor to start.
[2019-09-29 00:51] LABS: Bedside Glucose 369 mg/dL (70-110)
--- NOTE | 2019-09-29 01:16 | NURSING ---
This RN spoke with Xu in pharmacy about Merrem scheduling d/t late administration. Xu states to give 06:00 dose at 07:00.
[2019-09-29] MEDS: 0.9% Saline Lock 10 ML Syringe IV ×2 (02:31→21:11)
--- NOTE | 2019-09-29 06:55 | PN_ITS ---
Patient Problems: Active and Suspected Problems Septic shock (Acute) Complicated UTI (urinary tract infection) (Acute) Urinary retention (Acute) Hyperosmolar hyperglycemic coma due to diabetes mellitus without ketoacidosis (Acute) Subjective: The patient was seen and examined at the bedside this morning. Events from the last 24 hours have been reviewed. The patient is currently afebrile, hemodynamically stable and maintaining appropriate oxygen saturations on room air. The patient is without specific complaints. Objective: The patient's most recent lab work, culture data and imaging studies have all been personally reviewed. Blood cultures have been unrevealing to date. Urine culture was positive for the presence of a gram-negative ashley. - Physical Exam Vitals/I&O's: Vital Signs Temp Pulse Resp BP Pulse Ox 97.7 F L 84 13 108/76 96 09/29/19 02:40 09/29/19 03:03 09/29/19 02:40 09/29/19 02:40 09/29/19 02:40 Oxygen Flow Rate (L/min) 2 Oxygen Delivery Method Room Air Weight: 197 lb 5.019 oz Body Mass Index (BMI) 27.8 Finger Stick Blood Glucose 151 Intake and Output for Last 24 Hours 09/27/19 09/28/19 09/29/19 23:59 23:59 23:59 Intake Total 3162.27 / 3733.71 4072.35 / 4072.35 121.5 / 121.5 Output Total 1150 / 1150 900 / 900 Balance 2011. / 2583.71 3172.35 / 3172.35 121.5 / 121.5 General: Alert, No apparent distress HEENT: Atraumatic, Normocephalic Oral: No Gingival or Mucosal Lesions/ Ulcerations Neck: Supple, No Nodes, Trachea Midline Lungs: No rhonchi, No wheeze, No rales, Diminished Cardiovascular: Regular rate, Regular Rhythm, Normal S1, Normal S2 Abdomen: Bowel Sounds Present, Soft, Non Tender Extremities: No clubbing, No cyanosis, No edema Skin: - - No significant change from previous. Musculoskeletal: No Tenderness to Palpation of Joints or Extremities Lymphatic: No Cervical, Supraclavicular, or Inguinal Adenopathy Neurological: - - Baseline neurological status with residual facial droop and dysarthric speech Psych/Mental Status: Flat Affect Labs (Last 48 Hours) 09/27/19 09/27/19 09/27/19 12:26 12:26 12:26 WBC 11.2 H RBC 6.41 H Hgb 19.4 H* Hct 60.8 H MCV 94.9 H MCH 30.3 MCHC 31.9 L RDW Std Deviation 53.2 H RDW Coeff of Jagruti 16.8 H Plt Count 169 MPV 11.2 Immature Gran % (Auto) 0.300 Neut % (Auto) 79.0 H Lymph % (Auto) 12.3 L [place] % (Auto) 7.9 Eos % (Auto) 0.1 Baso % (Auto) 0.4 Absolute Neuts (auto) 8.8 H Absolute Lymphs (auto) 1.37 Nucleated RBC % 0 Diff Path Review Reviewed PT INR APTT Sodium 151 H Potassium 3.8 Chloride 119 H Carbon Dioxide 23.0 Anion Gap 9 BUN 33 H Creatinine 2.15 H Estim Creat Clear Calc 36.09 Est GFR (MDRD) Af Amer 39 L Est GFR (MDRD) Non-Af 33 L BUN/Creatinine Ratio 15.3 Glucose 634 H* Hemoglobin A1c Serum Osmolality Lactic Acid Calcium 10.4 H Phosphorus 3.6 Magnesium 2.5 Total Bilirubin 0.90 AST 39 H ALT 40 Alkaline Phosphatase 144 H Troponin I 0.035 Total Protein 9.7 H Albumin 4.1 Globulin 5.6 H Albumin/Globulin Ratio 0.7 L Urine Color Urine Clarity Urine pH Ur Specific [place] Urine Protein Urine Glucose (UA) Urine Ketones Urine Occult Blood Urine Nitrite Urine Bilirubin Urine Urobilinogen Ur Leukocyte Esterase Urine RBC Urine WBC Ur Squamous Epith Cells Urine Bacteria Urine Mucus Acetone Level POC Glucose 09/27/19 09/27/19 09/27/19 12:26 12:55 13:25 WBC RBC Hgb Hct MCV MCH MCHC RDW Std Deviation RDW Coeff of Jagruti Plt Count MPV Immature Gran % (Auto) Neut % (Auto) Lymph % (Auto) [place] % (Auto) Eos % (Auto) Baso % (Auto) Absolute Neuts (auto) Absolute Lymphs (auto) Nucleated RBC % Diff Path Review PT INR APTT Sodium Potassium Chloride Carbon Dioxide Anion Gap BUN Creatinine Estim Creat Clear Calc Est GFR (MDRD) Af Amer Est GFR (MDRD) Non-Af BUN/Creatinine Ratio Glucose Hemoglobin A1c 9.7 H Serum Osmolality Lactic Acid 4.5 H* Calcium Phosphorus Magnesium Total Bilirubin AST ALT Alkaline Phosphatase Troponin I Total Protein Albumin Globulin Albumin/Globulin Ratio Urine Color Urine Clarity Urine pH Ur Specific [place] Urine Protein Urine Glucose (UA) Urine Ketones Urine Occult Blood Urine Nitrite Urine Bilirubin Urine Urobilinogen Ur Leukocyte Esterase Urine RBC Urine WBC Ur Squamous Epith Cells Urine Bacteria Urine Mucus Acetone Level POC Glucose > 500 H* 09/27/19 09/27/19 09/27/19 13:30 13:55 15:49 WBC RBC Hgb Hct MCV MCH MCHC RDW Std Deviation RDW Coeff of Jagruti Plt Count MPV Immature Gran % (Auto) Neut % (Auto) Lymph % (Auto) [place] % (Auto) Eos % (Auto) Baso % (Auto) Absolute Neuts (auto) Absolute Lymphs (auto) Nucleated RBC % Diff Path Review PT 14.5 INR 1.2 APTT 25.9 Sodium Potassium Chloride Carbon Dioxide Anion Gap BUN Creatinine Estim Creat Clear Calc Est GFR (MDRD) Af Amer Est GFR (MDRD) Non-Af BUN/Creatinine Ratio Glucose Hemoglobin A1c Serum Osmolality Lactic Acid Calcium Phosphorus Magnesium Total Bilirubin AST ALT Alkaline Phosphatase Troponin I Total Protein Albumin Globulin Albumin/Globulin Ratio Urine Color Yellow Urine Clarity Cloudy Urine pH 5.0 Ur Specific [place] 1.015 Urine Protein 100 H Urine Glucose (UA) 1000 H Urine Ketones 5 H Urine Occult Blood 250 H Urine Nitrite Negative Urine Bilirubin Negative Urine Urobilinogen Normal Ur Leukocyte Esterase 500 H Urine RBC 10-25 SEEN Urine WBC 25-50 SEEN Ur Squamous Epith Cells 0 SEEN Urine Bacteria 4+ Urine Mucus 0 SEEN Acetone Level POC Glucose 397 H 09/27/19 09/27/19 09/27/19 16:46 17:34 17:34 WBC RBC Hgb Hct MCV MCH MCHC RDW Std Deviation RDW Coeff of Jagruti Plt Count MPV Immature Gran % (Auto) Neut % (Auto) Lymph % (Auto) [place] % (Auto) Eos % (Auto) Baso % (Auto) Absolute Neuts (auto) Absolute Lymphs (auto) Nucleated RBC % Diff Path Review PT INR APTT Sodium 157 H Potassium 3.3 L Chloride 129 H* Carbon Dioxide 23.0 Anion Gap 5 BUN 29 H Creatinine 1.69 H Estim Creat Clear Calc 43.20 Est GFR (MDRD) Af Amer 52 L Est GFR (MDRD) Non-Af 43 L BUN/Creatinine Ratio 17.2 Glucose 306 H Hemoglobin A1c Serum Osmolality 351 H Lactic Acid Calcium 9.4 Phosphorus Magnesium Total Bilirubin AST ALT Alkaline Phosphatase Troponin I Total Protein Albumin Globulin Albumin/Globulin Ratio Urine Color Urine Clarity Urine pH Ur Specific [place] Urine Protein Urine Glucose (UA) Urine Ketones Urine Occult Blood Urine Nitrite Urine Bilirubin Urine Urobilinogen Ur Leukocyte Esterase Urine RBC Urine WBC Ur Squamous Epith Cells Urine Bacteria Urine Mucus Acetone Level NEGATIVE POC Glucose 302 H 09/27/19 09/27/19 09/27/19 17:34 17:50 18:53 WBC RBC Hgb Hct MCV MCH MCHC RDW Std Deviation RDW Coeff of Jagruti Plt Count MPV Immature Gran % (Auto) Neut % (Auto) Lymph % (Auto) [place] % (Auto) Eos % (Auto) Baso % (Auto) Absolute Neuts (auto) Absolute Lymphs (auto) Nucleated RBC % Diff Path Review PT INR APTT Sodium Potassium Chloride Carbon Dioxide Anion Gap BUN Creatinine Estim Creat Clear Calc Est GFR (MDRD) Af Amer Est GFR (MDRD) Non-Af BUN/Creatinine Ratio Glucose Hemoglobin A1c Serum Osmolality Lactic Acid 3.2 H Calcium Phosphorus Magnesium Total Bilirubin AST ALT Alkaline Phosphatase Troponin I Total Protein Albumin Globulin Albumin/Globulin Ratio Urine Color Urine Clarity Urine pH Ur Specific [place] Urine Protein Urine Glucose (UA) Urine Ketones Urine Occult Blood Urine Nitrite Urine Bilirubin Urine Urobilinogen Ur Leukocyte Esterase Urine RBC Urine WBC Ur Squamous Epith Cells Urine Bacteria Urine Mucus Acetone Level POC Glucose 267 H 281 H 09/27/19 09/27/19 09/27/19 19:52 20:50 22:02 WBC RBC Hgb Hct MCV MCH MCHC RDW Std Deviation RDW Coeff of Jagruti Plt Count MPV Immature Gran % (Auto) Neut % (Auto) Lymph % (Auto) [place] % (Auto) Eos % (Auto) Baso % (Auto) Absolute Neuts (auto) Absolute Lymphs (auto) Nucleated RBC % Diff Path Review PT INR APTT Sodium Potassium Chloride Carbon Dioxide Anion Gap BUN Creatinine Estim Creat Clear Calc Est GFR (MDRD) Af Amer Est GFR (MDRD) Non-Af BUN/Creatinine Ratio Glucose Hemoglobin A1c Serum Osmolality Lactic Acid Calcium Phosphorus Magnesium Total Bilirubin AST ALT Alkaline Phosphatase Troponin I Total Protein Albumin Globulin Albumin/Globulin Ratio Urine Color Urine Clarity Urine pH Ur Specific [place] Urine Protein Urine Glucose (UA) Urine Ketones Urine Occult Blood Urine Nitrite Urine Bilirubin Urine Urobilinogen Ur Leukocyte Esterase Urine RBC Urine WBC Ur Squamous Epith Cells Urine Bacteria Urine Mucus Acetone Level POC Glucose 262 H 239 H 260 H 09/27/19 09/27/19 09/27/19 22:19 22:58 23:56 WBC RBC Hgb Hct MCV MCH MCHC RDW Std Deviation RDW Coeff of Jagruti Plt Count MPV Immature Gran % (Auto) Neut % (Auto) Lymph % (Auto) [place] % (Auto) Eos % (Auto) Baso % (Auto) Absolute Neuts (auto) Absolute Lymphs (auto) Nucleated RBC % Diff Path Review PT INR APTT Sodium 157 H Potassium 3.3 L Chloride 128 H* Carbon Dioxide 24.0 Anion Gap 5 BUN 23 H Creatinine 1.24 Estim Creat Clear Calc 58.87 Est GFR (MDRD) Af Amer 74 Est GFR (MDRD) Non-Af 62 BUN/Creatinine Ratio 18.5 Glucose 280 H Hemoglobin A1c Serum Osmolality Lactic Acid Calcium 9.0 Phosphorus Magnesium Total Bilirubin AST ALT Alkaline Phosphatase Troponin I Total Protein Albumin Globulin Albumin/Globulin Ratio Urine Color Urine Clarity Urine pH Ur Specific [place] Urine Protein Urine Glucose (UA) Urine Ketones Urine Occult Blood Urine Nitrite Urine Bilirubin Urine Urobilinogen Ur Leukocyte Esterase Urine RBC Urine WBC Ur Squamous Epith Cells Urine Bacteria Urine Mucus Acetone Level POC Glucose 271 H 243 H 09/28/19 09/28/19 09/28/19 00:51 02:03 02:10 WBC RBC Hgb Hct MCV MCH MCHC RDW Std Deviation RDW Coeff of Jagruti Plt Count MPV Immature Gran % (Auto) Neut % (Auto) Lymph % (Auto) [place] % (Auto) Eos % (Auto) Baso % (Auto) Absolute Neuts (auto) Absolute Lymphs (auto) Nucleated RBC % Diff Path Review PT INR APTT Sodium 155 H Potassium 4.7 Chloride 125 H Carbon Dioxide 25.0 Anion Gap 5 BUN 21 H Creatinine 1.29 Estim Creat Clear Calc 56.59 Est GFR (MDRD) Af Amer 71 Est GFR (MDRD) Non-Af 59 L BUN/Creatinine Ratio 16.3 Glucose 258 H Hemoglobin A1c Serum Osmolality Lactic Acid Calcium 8.7 Phosphorus 2.9 Magnesium Total Bilirubin AST ALT Alkaline Phosphatase Troponin I Total Protein Albumin Globulin Albumin/Globulin Ratio Urine Color Urine Clarity Urine pH Ur Specific [place] Urine Protein Urine Glucose (UA) Urine Ketones Urine Occult Blood Urine Nitrite Urine Bilirubin Urine Urobilinogen Ur Leukocyte Esterase Urine RBC Urine WBC Ur Squamous Epith Cells Urine Bacteria Urine Mucus Acetone Level POC Glucose 218 H 194 H 09/28/19 09/28/19 09/28/19 02:10 02:10 04:01 WBC 12.9 H RBC 5.79 Hgb 17.5 H Hct 55.3 H MCV 95.5 H MCH 30.2 MCHC 31.6 L RDW Std Deviation 53.9 H RDW Coeff of Jagruti 15.6 H Plt Count 149 L MPV 10.1 Immature Gran % (Auto) 0.300 Neut % (Auto) 66.8 Lymph % (Auto) 22.7 [place] % (Auto) 8.9 Eos % (Auto) 0.8 Baso % (Auto) 0.5 Absolute Neuts (auto) 8.6 H Absolute Lymphs (auto) 2.93 Nucleated RBC % 0 [address] Review PT INR APTT Sodium Potassium Chloride Carbon Dioxide Anion Gap BUN Creatinine Estim Creat Clear Calc Est GFR (MDRD) Af Amer Est GFR (MDRD) Non-Af BUN/Creatinine Ratio Glucose Hemoglobin A1c Serum Osmolality Lactic Acid Calcium Phosphorus Cancelled Magnesium Total Bilirubin AST ALT Alkaline Phosphatase Troponin I Total Protein Albumin Globulin Albumin/Globulin Ratio Urine Color Urine Clarity Urine pH Ur Specific [place] Urine Protein Urine Glucose (UA) Urine Ketones Urine Occult Blood Urine Nitrite Urine Bilirubin Urine Urobilinogen Ur Leukocyte Esterase Urine RBC Urine WBC Ur Squamous Epith Cells Urine Bacteria Urine Mucus Acetone Level POC Glucose 244 H 09/28/19 09/28/19 09/28/19 05:00 05:54 05:55 WBC RBC Hgb Hct MCV MCH MCHC RDW Std Deviation RDW Coeff of Jagruti Plt Count MPV Immature Gran % (Auto) Neut % (Auto) Lymph % (Auto) [place] % (Auto) Eos % (Auto) Baso % (Auto) Absolute Neuts (auto) Absolute Lymphs (auto) Nucleated RBC % Diff Path Review PT INR APTT Sodium 150 H Potassium 4.3 Chloride 121 H Carbon Dioxide 25.0 Anion Gap 4 L BUN 19 H Creatinine 1.24 Estim Creat Clear Calc 58.87 Est GFR (MDRD) Af Amer 74 Est GFR (MDRD) Non-Af 62 BUN/Creatinine Ratio 15.3 Glucose 378 H Hemoglobin A1c Serum Osmolality Lactic Acid Calcium 8.6 Phosphorus Magnesium 1.8 Total Bilirubin AST ALT Alkaline Phosphatase Troponin I Total Protein Albumin Globulin Albumin/Globulin Ratio Urine Color Urine Clarity Urine pH Ur Specific [place] Urine Protein Urine Glucose (UA) Urine Ketones Urine Occult Blood Urine Nitrite Urine Bilirubin Urine Urobilinogen Ur Leukocyte Esterase Urine RBC Urine WBC Ur Squamous Epith Cells Urine Bacteria Urine Mucus Acetone Level POC Glucose 220 H 210 H 09/28/19 09/28/19 09/28/19 08:00 12:17 16:14 WBC RBC Hgb Hct MCV MCH MCHC RDW Std Deviation RDW Coeff of Jagruti Plt Count MPV Immature Gran % (Auto) Neut % (Auto) Lymph % (Auto) [place] % (Auto) Eos % (Auto) Baso % (Auto) Absolute Neuts (auto) Absolute Lymphs (auto) Nucleated RBC % Diff Path Review PT INR APTT Sodium Potassium Chloride Carbon Dioxide Anion Gap BUN Creatinine Estim Creat Clear Calc Est GFR (MDRD) Af Amer Est GFR (MDRD) Non-Af BUN/Creatinine Ratio Glucose Hemoglobin A1c Serum Osmolality Lactic Acid Calcium Phosphorus Magnesium Total Bilirubin AST ALT Alkaline Phosphatase Troponin I Total Protein Albumin Globulin Albumin/Globulin Ratio Urine Color Urine Clarity Urine pH Ur Specific [place] Urine Protein Urine Glucose (UA) Urine Ketones Urine Occult Blood Urine Nitrite Urine Bilirubin Urine Urobilinogen Ur Leukocyte Esterase Urine RBC Urine WBC Ur Squamous Epith Cells Urine Bacteria Urine Mucus Acetone Level POC Glucose 151 H 393 H 297 H 09/28/19 22:09 WBC RBC Hgb Hct MCV MCH MCHC RDW Std Deviation RDW Coeff of Jagruti Plt Count MPV Immature Gran % (Auto) Neut % (Auto) Lymph % (Auto) [place] % (Auto) Eos % (Auto) Baso % (Auto) Absolute Neuts (auto) Absolute Lymphs (auto) Nucleated RBC % Diff Path Review PT INR APTT Sodium Potassium Chloride Carbon Dioxide Anion Gap BUN Creatinine Estim Creat Clear Calc Est GFR (MDRD) Af Amer Est GFR (MDRD) Non-Af BUN/Creatinine Ratio Glucose Hemoglobin A1c Serum Osmolality Lactic Acid Calcium Phosphorus Magnesium Total Bilirubin AST ALT Alkaline Phosphatase Troponin I Total Protein Albumin Globulin Albumin/Globulin Ratio Urine Color Urine Clarity Urine pH Ur Specific [place] Urine Protein Urine Glucose (UA) Urine Ketones Urine Occult Blood Urine Nitrite Urine Bilirubin Urine Urobilinogen Ur Leukocyte Esterase Urine RBC Urine WBC Ur Squamous Epith Cells Urine Bacteria Urine Mucus Acetone Level POC Glucose 369 H Microbiology 09/27/19 13:30 Urine Catheter - Catheter 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 Follow-up is recommended. Electronically Signed: Kurt Johnsondaniel, at 13:26 EST , Service support , Brain CT 09/27/19 13:07 IMPRESSION: Chronic involutional changes of the brain. A right-sided ventriculoperitoneal shunt tube is seen with the tip in the left frontal horn. Stable atrophy and encephalomalacia involving the left frontal lobe as well as the cerebellum. Electronically Signed: Kurt Barb, at 14:10 EST , Service support , Chest X-Ray 09/28/19 05:55 IMPRESSION: Minimal bilateral basilar atelectasis with possible left-sided pleural effusion versus pleural thickening. Otherwise no acute process identified, no significant change in the interval. Electronically Signed: Lazara Marquez MD at 5:54 EST , Service support , Current Medications Acetaminophen (Tylenol) 650 mg PO Q6H PRN PRN PRN Reason: Non-cardiac pain (mod-severe) Hydrocodone Bitart/Acetaminophen ([place] 5mg-325mg) 1 - 2 tablet PO Q4H PRN PRN PRN Reason: Pain Score 4-10/10 Al Hydroxide/Mg Hydroxide (Mylanta Ii) 15 - 30 ml PO Q4H PRN PRN PRN Reason: INDIGESTION Albuterol Sulfate (Ventolin Aerosols) 2.5 mg INHALATION Q2H PRN PRN PRN Reason: dyspnea, wheezing Amlodipine Besylate (Norvasc) 5 mg PO DAILY [facility] Last Admin: 09/28/19 10:08 Dose: 5 mg Documented by: Artificial Tears (Tears Naturale, Artificial Tears) 2 drop EACH EYE TID [facility] Last Admin: 09/28/19 22:01 Dose: 2 drop Documented by: [facility]ir[facility] ([facility], Baby) [facility] Admin: 09/28/19 10:08 Dose: 81 mg Documented by: Dextrose (D50w Syringe) 0 gm IV X1 PRN; Protocol PRN Reason: Hypoglycemia Protocol Dextrose (D50w Syringe) 0 gm IV X1 PRN; Protocol PRN Reason: Hypoglycemia Famotidine (Pepcid) 20 mg PO BID [facility] Last Admin: 09/28/19 22:00 Dose: 20 mg Documented by: Finasteride (Proscar) 5 mg PO DAILY [facility] Last Admin: 09/28/19 10:09 Dose: 5 mg Documented by: Glucagon () 1 mg IM .X1 PRN PRN Reason: Hypoglycemia Guaifenesin (Robitussin) 10 ml PO Q4H PRN PRN PRN Reason: COUGH Heparin Sodium (Beef Lung) () 50 units IV UD PRN PRN Reason: PICC Line Heparin Flush Heparin Sodium (Porcine) (Heparin Na) 5,000 unit SC Q12 [facility] Last Admin: 09/28/19 21:59 Dose: 5,000 unit Documented by: Hydralazine HCl (Apresoline Iv) 10 mg IV Q4H PRN PRN PRN Reason: SBP > 160 Last Admin: 09/27/19 16:34 Dose: 10 mg Documented by: Sodium Chloride () 250 mls @ 15 mls/hr IV .[id number] PRN PRN Reason: Saline Flush Last Infusion: 09/29/19 02:29 Dose: 0 mls/hr Documented by: Potassium Chloride 20 meq/ (Dextrose) 1,010 mls @ 125 mls/hr IV .Q8H5M [facility] Last Admin: 09/29/19 02:35 Dose: 125 mls/hr Documented by: Meropenem 1 gm/ Sodium (Chloride) 120 mls @ 97 mls/hr IV Q8 [facility] Last Infusion: 09/29/19 02:23 Dose: Infused Documented by: Insulin Glargine (Lantus (Bkc)) 10 units SC BID [facility] Last Admin: 09/28/19 22:11 Dose: 10 u Documented by: Insulin Human Lispro (Humalog Kwikpen (Bkc)) 0 unit SC ACHS [facility]; Protocol Last Admin: 09/28/19 22:11 Dose: 12 u Documented by: Ketoconazole (Nizoral) 1 applic TOPICAL BID [facility]; Protocol Last Admin: 09/28/19 22:16 Dose: 1 applicatio Documented by: Magnesium Hydroxide (Milk Of Magnesia) 30 ml PO DAILY PRN PRN Reason: Constipation Melatonin (Melatonin) 3 mg PO QHS [facility] Last Admin: 09/28/19 22:00 Dose: 3 mg Documented by: Nitroglycerin (Nitrostat) 0.4 mg SUBLINGUAL Q5M PRN PRN Reason: CARDIAC/CHEST PAIN Ondansetron HCl (Zofran) 4 mg IV Q8H PRN PRN PRN Reason: NAUSEA/VOMITING Polyethylene Glycol (Miralax) 17 gm PO DAILY [facility] Last Admin: 09/28/19 10:07 Dose: 17 gm Documented by: Quetiapine Fumarate (Seroquel) 25 mg PO QHS [facility] Last Admin: 09/28/19 22:00 Dose: 25 mg Documented by: Senna/Docusate Sodium (Senokot-S, Lora-Colace) 2 tablet PO BID [facility] Last Admin: 09/28/19 22:00 Dose: 2 tablet Documented by: Sodium Chloride () 10 - 40 ml IV UD PRN PRN Reason: Open End PICC Flush Last Admin: 09/29/19 02:31 Dose: 10 ml Documented by: Sodium Chloride (0.9% Nacl (Sterile) Posiflush) 10 - 40 ml IV UD PRN PRN Reason: Port access or dressing change Sodium Chloride () 10 - 40 ml IV UD PRN PRN Reason: SALINE FLUSH Tamsulosin HCl (Flomax) 0.4 mg PO DAILY@1730 [facility] Last Admin: 09/28/19 17:53 Dose: 0.4 mg Documented by: Throat Lozenges (Cepacol Sore Throat Lozenge) 1 lozenge MUCOUS MEM Q2H PRN PRN PRN Reason: Sore Throat/Cough Medical Necessity - Tobacco Use Smoking Status: Former smoker Tobacco Use: Non-smoker Assessment/Plan All Active Problems Septic shock (Acute) Complicated UTI (urinary tract infection) (Acute) Urinary retention (Acute) Hyperosmolar hyperglycemic coma due to diabetes mellitus without ketoacidosis (Acute) Severe sepsis (Acute) UTI (urinary tract infection) (Acute) Acute kidney injury (Acute) Aspiration into airway (Acute) UTI (urinary tract infection) (Acute) Respiratory failure (Acute) RECOMMENDATIONS: 1. Continue antibiotics per infectious diseases recommendations. 2. Continue modified diet per speech therapy recommendations. 3. Consider upward titration and basal insulin regimen. Continue sliding scale coverage. 4. Given the lack of ICU or pulmonary needs, will sign off. Please call with any additional questions. IMPRESSIONS: 1. Severe sepsis secondary to E. coli urinary tract infection The patient has been adequately volume resuscitated and never required vasopressor support. Recommend continuing antimicrobial coverage per infectious diseases recommendations. 2. Acute kidney injury Resolved. Likely prerenal in etiology. The patient's creatinine has stabilized following volume resuscitation. Continue to monitor urine output. No current indication for renal replacement therapy. 3. Hyperosmolar hyperglycemic state Improved. The patient was never previously noted to be diabetic. He was initially treated with a continuous insulin infusion, which was transitioned to basal insulin and sliding scale coverage. Recommend upward titration and basal insulin regimen and continue sliding scale coverage. 4. Metabolic encephalopathy Resolved. Likely metabolic in etiology with underlying sepsis contributing. At the present time, the patient appears to be at his baseline mental state. CT head revealed no acute process. Continue current supportive measures. 5. 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 Continue home medications as indicated. Continue modified diet per speech therapy recommendations. This note was generated with eBuddy dictation software. It may contain incorrect words, spelling, and punctuation that were not noted in checking the note before signing. Code Visit Inpatient E&M: 29431 Subs Hosp L2
[2019-09-29] MEDS: Insulin Lispro 100 UNIT/ML INSULN.PEN SC ×4 (06:56→21:03)
[2019-09-29 08:10] LABS: Bedside Glucose 303 mg/dL (70-110)
[2019-09-29] MEDS: Aspirin 81 MG TAB.CHEW PO (08:46)
[2019-09-29] MEDS: Polyethylene Glycol 3350 17 GM PACKET PO (08:46)
[2019-09-29] MEDS: Heparin Injection (Vial) 5,000 UNIT/ML VIAL 5000 UNIT SC ×2 (08:47→21:02)
[2019-09-29] MEDS: Famotidine 20 MG Tablet PO ×2 (08:47→21:01)
[2019-09-29] MEDS: amLODIPine 5 MG Tablet PO (08:48)
[2019-09-29] MEDS: Finasteride 5 MG Tablet PO (08:48)
[2019-09-29] MEDS: Senna/Docusate Sodium 1 Tablet 2 TABLET PO ×2 (08:48→21:01)
[2019-09-29] MEDS: Ketoconazole Cream 1 APPLIC TOPICAL ×2 (08:49→21:05)
--- NOTE | 2019-09-29 11:38 | CASEMGMT ---
Social Work Updated clinicals faxed to [facility] and VM left with Inna with update. Transportation form on the chart along with green sheet in case of weekend d/c. SVITLANA Lindquist
[2019-09-29 11:55] LABS: Bedside Glucose 419 mg/dL (70-110)
--- NOTE | 2019-09-29 11:56 | PN.ID_ITS ---
Patient Problems: Active and Suspected Problems Septic shock (Acute) Complicated UTI (urinary tract infection) (Acute) Urinary retention (Acute) Hyperosmolar hyperglycemic coma due to diabetes mellitus without ketoacidosis (Acute) Subjective: Feeling better, out of icu, no fever. - Physical Exam Vitals/I&O's: Vital Signs Temp Pulse Resp BP Pulse Ox 97.9 F 91 16 131/92 H 96 09/29/19 08:40 09/29/19 08:40 09/29/19 08:40 09/29/19 08:40 09/29/19 08:40 Oxygen Flow Rate (L/min) 2 Oxygen Delivery Method Room Air Weight: 89.5 kg Body Mass Index (BMI) 27.8 Finger Stick Blood Glucose 151 Intake and Output for Last 24 Hours 09/27/19 09/28/19 09/29/19 23:59 23:59 23:59 Intake Total 3162.27 / 3733.71 4072.35 / 4072.35 916.5 / 916.5 Output Total 1150 / 1150 875 / 875 355 / 355 Balance 2012.27 / 2583.71 3197.35 / 3197.35 561.5 / 561.5 General: Cooperative, No apparent distress Lungs: Clear to auscultation, Normal air movement Cardiovascular: Regular rate, Regular Rhythm Abdomen: Soft, Non Tender, Non-Distended Skin: No rashes Microbiology Past 72 Hours 09/27/19 13:25 Blood Culture (Wb) - Left Wrist Blood Culture - Preliminary No growth in 48 hours. 09/27/19 12:26 Blood Culture (Wb) - Anticubital Left Blood Culture - Preliminary No growth in 48 hours. 09/27/19 13:30 Urine Catheter - Catheter Urine Culture - Final Escherichia coli Laboratory Results 09/28/19 12:17: POC Glucose 393 H 09/28/19 16:14: POC Glucose 297 H 09/28/19 22:09: POC Glucose 369 H 09/29/19 06:45: POC Glucose 303 H 09/29/19 11:46: POC Glucose 419 H Current Medications Acetaminophen (Tylenol) 650 mg PO Q6H PRN PRN PRN Reason: Non-cardiac pain (mod-severe) Hydrocodone Bitart/Acetaminophen ([place] 5mg-325mg) 1 - 2 tablet PO Q4H PRN PRN PRN Reason: Pain Score 4-10/10 Al Hydroxide/Mg Hydroxide (Mylanta Ii) 15 - 30 ml PO Q4H PRN PRN PRN Reason: INDIGESTION Albuterol Sulfate (Ventolin Aerosols) 2.5 mg INHALATION Q2H PRN PRN PRN Reason: dyspnea, wheezing Amlodipine Besylate (Norvasc) 5 mg PO DAILY [facility] Last Admin: 09/29/19 08:48 Dose: 5 mg Documented by: Artificial Tears (Tears Naturale, Artificial Tears) 2 drop EACH EYE TID [facility] Last Admin: 09/29/19 07:02 Dose: Not Given Documented by: [facility]irin ([facility], Baby) [facility] Last Admin: 09/29/19 08:46 Dose: 81 mg Documented by: Dextrose (D50w Syringe) 0 gm IV X1 PRN; Protocol PRN Reason: Hypoglycemia Protocol Dextrose (D50w Syringe) 0 gm IV X1 PRN; Protocol PRN Reason: Hypoglycemia Famotidine (Pepcid) 20 mg PO BID [facility] Last Admin: 09/29/19 08:47 Dose: 20 mg Documented by: Finasteride (Proscar) 5 mg PO DAILY [facility] Last Admin: 09/29/19 08:48 Dose: 5 mg Documented by: Glucagon () 1 mg IM .X1 PRN PRN Reason: Hypoglycemia Guaifenesin (Robitussin) 10 ml PO Q4H PRN PRN PRN Reason: COUGH Heparin Sodium (Beef Lung) () 50 units IV UD PRN PRN Reason: PICC Line Heparin Flush Heparin Sodium (Porcine) (Heparin Na) 5,000 unit SC Q12 [facility] Last Admin: 09/29/19 08:47 Dose: 5,000 unit Documented by: Hydralazine HCl (Apresoline Iv) 10 mg IV Q4H PRN PRN PRN Reason: SBP > 160 Last Admin: 09/27/19 16:34 Dose: 10 mg Documented by: Sodium Chloride () 250 mls @ 15 mls/hr IV .[id number] PRN PRN Reason: Saline Flush Last Infusion: 09/29/19 02:29 Dose: 0 mls/hr Documented by: Potassium Chloride 20 meq/ (Dextrose) 1,010 mls @ 125 mls/hr IV .Q8H5M [facility] Last Infusion: 09/29/19 09:15 Dose: 125 mls/hr Documented by: Ceftriaxone Sodium (Rocephin) 1 gm in 50 mls @ 100 mls/hr IV Q24 [facility] Insulin Glargine (Lantus (Bk)) 10 units SC BID [facility] Last Admin: 09/29/19 08:46 Dose: 10 u Documented by: Insulin Human Lispro (Humalog Kwikpen ([facility])) 0 unit SC ACHS [facility]; Protocol Last Admin: 09/29/19 11:48 Dose: 16 u Documented by: Ketoconazole (Nizoral) 1 applic TOPICAL BID [facility]; Protocol Last Admin: 09/29/19 08:49 Dose: 1 applicatio Documented by: Magnesium Hydroxide (Milk Of Magnesia) 30 ml PO DAILY PRN PRN Reason: Constipation Melatonin (Melatonin) 3 mg PO QHS [facility] Last Admin: 09/28/19 22:00 Dose: 3 mg Documented by: Nitroglycerin (Nitrostat) 0.4 mg SUBLINGUAL Q5M PRN PRN Reason: CARDIAC/CHEST PAIN Ondansetron HCl (Zofran) 4 mg IV Q8H PRN PRN PRN Reason: NAUSEA/VOMITING Polyethylene Glycol (Miralax) 17 gm PO DAILY [facility] Last Admin: 09/29/19 08:46 Dose: 17 gm Documented by: Quetiapine Fumarate (Seroquel) 25 mg PO QHS [facility] Last Admin: 09/28/19 22:00 Dose: 25 mg Documented by: Senna/Docusate Sodium (Senokot-S, Lora-Colace) 2 tablet PO BID [facility] Last Admin: 09/29/19 08:48 Dose: 2 tablet Documented by: Sodium Chloride () 10 - 40 ml IV UD PRN PRN Reason: Open End PICC Flush Last Admin: 09/29/19 02:31 Dose: 10 ml Documented by: Sodium Chloride (0.9% Nacl (Sterile) Posiflush) 10 - 40 ml IV UD PRN PRN Reason: Port access or dressing change Sodium Chloride () 10 - 40 ml IV UD PRN PRN Reason: SALINE FLUSH Tamsulosin HCl (Flomax) 0.4 mg PO DAILY@1730 [facility] Last Admin: 09/28/19 17:53 Dose: 0.4 mg Documented by: Throat Lozenges (Cepacol Sore Throat Lozenge) 1 lozenge MUCOUS MEM Q2H PRN PRN PRN Reason: Sore Throat/Cough Medical Necessity - Tobacco Use Smoking Status: Former smoker Tobacco Use: Non-smoker Route of nutrition/ use of supplements: [] Nutritional Intake: [] IV Site: [] Reese Catheter: [] - Assessment/Plan Antibiotics: [] Assessment/Plan: [] Active and Suspected Problems Septic shock (Acute) Complicated UTI (urinary tract infection) (Acute) Urinary retention (Acute) Hyperosmolar hyperglycemic coma due to diabetes mellitus without ketoacidosis (Acute) severe sepsis due to complicated ecoli uti - leukocytosis, tachycardia, lactic acidosis, CHRISTINA. Labs and vital improved. Has past ucx with ESBL. Narrow meropenem to amoxicillin, plan on 7 more days. Will follow, d/w Dr. Patel
[2019-09-29 12:47] LABS: Absolute Lymphocyte Count 1.61 X10^3/uL (0.83-4.51); Absolute Neutrophil Count 5.8 X10^3/uL (2.0-7.7); Basophil# 0.06 X10^3/uL; Basophil% 0.7 % (0-1); Eosinophil# 0.24 X10^3/uL; Eosinophils% 2.9 % (0-5); Hematocrit 51.6 % (40-54); Hemoglobin 16.3 g/dL (13.0-16.5); Lymphocyte # 1.61 X10^3/ul (4.0); Lymphocyte % 19.6 % (19-41); Mean Corp Hgb Conc 31.6 g/dL (32-36); Mean Platelet Vol. 10.4 fl (6.2-12.0); Monocyte# 0.46 X10^3/uL; Monocyte% 5.6 % (0-10); NRBC Flagged by Analyzer 0 % (0-5); Neutrophil # 5.81 X10^3/uL (2.7-7.7); Neutrophil % 70.6 % (47-70); POSITIVE COUNT YES; Platelet Count 99 K/mm3 (150-450); RBC Distribution Width CV 14.7 % (11.6-14.6); RBC Distribution Width SD 52.3 fl (35.1-43.9); Red Blood Count 5.43 M/mm3 (4.6-6.2); White Blood Count 8.2 K/mm3 (4.4-11.0)
[2019-09-29 13:35] LABS: Differential Indicated SCAN CRITERIA MET
[2019-09-29 13:37] LABS: ALB/GLOB Ratio 0.7 RATIO (0.9-2.4); AST(SGOT) 51 U/L (15-37); Alanine Aminotransfer ALT/SGPT 35 U/L (16-61); Albumin, Serum 2.9 g/dL (3.2-5.0); Alkaline Phosphatase 109 U/L (45-117); Anion Gap 9 (5-15); BUN 21 mg/dL (7-18); BUN/Creat Ratio 16.2 RATIO (10-20); Calcium,Total 8.3 mg/dL (8.5-10.1); Chloride 113 mmol/L (98-107); EST Glomerular Filtration Rate 58 mL/min (>60); Est Glom Filt Rate - Afr Amer 71 mL/min (>60); Estimated Creatinine Clearance 56.15 ml/min; Globulin 4.4 g/dL (2.2-4.2); Glucose 459 mg/dL (74-106); Potassium 3.8 mmol/L (3.5-5.1); Protein, Total 7.3 g/dL (6.4-8.2); Sodium Level 144 mmol/L (136-145)
[2019-09-29 13:40] LABS: Platelet Estimate SLT DEC (ADEQ); Platelet Morphology LARGE
[2019-09-29] MEDS: Amoxicillin 200MG/5 ML Susp PO.SYRINGE 500 MG PO ×2 (14:52→21:14)
--- NOTE | 2019-09-29 15:55 | PN_ITS ---
Patient Problems: Active and Suspected Problems Septic shock (Acute) Complicated UTI (urinary tract infection) (Acute) Urinary retention (Acute) Hyperosmolar hyperglycemic coma due to diabetes mellitus without ketoacidosis (Acute) Subjective: Patient looks much better than yesterday. Patient was on D5W with 20 M EQ of KCl for hypernatremia. Blood sugar improved yesterday evening but again went up to 419, 459. Talk to the power of ip technology transactions attorney patient's daughter Anna who expressed her concern regarding shortness of breath and lethargic. Overall, when patient is awake he is not short of breath but on falling asleep he snores and takes deep breath probably obstructive sleep apnea/obesity hypoventilation syndrome Vitals/I&O's: Vital Signs Temp Pulse Resp BP Pulse Ox 98.5 F 90 18 114/72 98 09/29/19 14:40 09/29/19 15:00 09/29/19 14:40 09/29/19 14:40 09/29/19 14:40 Oxygen Flow Rate (L/min) 2 Oxygen Delivery Method Room Air Weight: 197 lb 5.019 oz Body Mass Index (BMI) 27.8 Finger Stick Blood Glucose 151 Intake and Output for Last 24 Hours 09/27/19 09/28/19 09/29/19 23:59 23:59 23:59 Intake Total 3162.27 / 3733.71 4072.35 / 4072.35 1543.17 / 1543.17 Output Total 1150 / 1150 875 / 875 355 / 355 Balance 2012. / 2583.71 3197.35 / 3197.35 1188.17 / 1188.17 General: Cooperative, - - Mental alertness fluctuates usually awake and alert but sometimes lethargic HEENT: Atraumatic, PERRLA, EOMI, Normocephalic Neck: Supple Lungs: No rhonchi, No wheeze, No rales, Diminished - Air entry diminished in the lower lungs. Cardiovascular: Regular rate, Regular Rhythm, Normal S1, Normal S2, No murmurs Abdomen: Bowel Sounds Present, Soft, Non Tender, Non-Distended Extremities: No edema, Capillary Refill Less than 3 Seconds Musculoskeletal: Arthritic Changes, Muscle Wasting Neurological: Cranial nerves II-XII grossly intact, Deep Tendon Reflexes 2+/4 and Symmetrical, Neuro grossly intact Microbiology Past 72 Hours 09/27/19 13:25 Blood Culture (Wb) - Left Wrist Blood Culture - Preliminary No growth in 48 hours. 09/27/19 12:26 Blood Culture (Wb) - Anticubital Left Blood Culture - Preliminary No growth in 48 hours. 09/27/19 13:30 Urine Catheter - Catheter Urine Culture - Final Escherichia coli Laboratory Results 09/28/19 16:14: POC Glucose 297 H 09/28/19 22:09: POC Glucose 369 H 09/29/19 06:45: POC Glucose 303 H 09/29/19 11:46: POC Glucose 419 H 09/29/19 12:32: WBC 8.2, RBC 5.43, Hgb 16.3, Hct 51.6, MCV 95.0 H, MCH 30.0, MCHC 31.6 L, RDW Std Deviation 52.3 H, RDW Coeff of Jagruti 14.7 H, Plt Count 99 L, MPV 10.4, Immature Gran % (Auto) 0.600, Neut % (Auto) 70.6 H, Lymph % (Auto) 19.6, Ocean % (Auto) 5.6, Eos % (Auto) 2.9, Baso % (Auto) 0.7, Absolute Neuts (auto) 5.8, Absolute Lymphs (auto) 1.61, Nucleated RBC % 0, Platelet Estimate SLT DEC, Plt Morphology Comment LARGE 09/29/19 12:32: Sodium 144, Potassium 3.8, Chloride 113 H, Carbon Dioxide 22.0, Anion Gap 9, BUN 21 H, Creatinine 1.30, Estim Creat Clear Calc 56.15, Est GFR (MDRD) Af Amer 71, Est GFR (MDRD) Non-Af 58 L, BUN/Creatinine Ratio 16.2, Glucose 459 H*, Calcium 8.3 L, Total Bilirubin 0.80, AST 51 H, ALT 35, Alkaline Phosphatase 109, Total Protein 7.3, Albumin 2.9 L, Globulin 4.4 H, Albumin/Globulin Ratio 0.7 L Current Medications Acetaminophen (Tylenol) 650 mg PO Q6H PRN PRN PRN Reason: Non-cardiac pain (mod-severe) Hydrocodone Bitart/Acetaminophen ([place] 5mg-325mg) 1 - 2 tablet PO Q4H PRN PRN PRN Reason: Pain Score 4-10/10 Al Hydroxide/Mg Hydroxide (Mylanta Ii) 15 - 30 ml PO Q4H PRN PRN PRN Reason: INDIGESTION Albuterol Sulfate (Ventolin Aerosols) 2.5 mg INHALATION Q2H PRN PRN PRN Reason: dyspnea, wheezing Amlodipine Besylate (Norvasc) 5 mg PO DAILY [facility] Last Admin: 09/29/19 08:48 Dose: 5 mg Documented by: Amoxicillin (Amoxil 200mg/5ml Susp) 500 mg PO Q8 [facility] Last Admin: 09/29/19 14:52 Dose: 500 mg Documented by: Artificial Tears (Tears Naturale, Artificial Tears) 2 drop EACH EYE TID [facility] Last Admin: 09/29/19 14:52 Dose: 2 drop Documented by: Aspirin (Aspirin, Baby) 81 mg PO DAILYCM [facility] Last Admin: 09/29/19 08:46 Dose: 81 mg Documented by: Dextrose (D50w Syringe) 0 gm IV X1 PRN; Protocol PRN Reason: Hypoglycemia Protocol Dextrose (D50w Syringe) 0 gm IV X1 PRN; Protocol PRN Reason: Hypoglycemia Famotidine (Pepcid) 20 mg PO BID [facility] Last Admin: 09/29/19 08:47 Dose: 20 mg Documented by: Finasteride (Proscar) 5 mg PO DAILY [facility] Last Admin: 09/29/19 08:48 Dose: 5 mg Documented by: Glucagon () 1 mg IM .X1 PRN PRN Reason: Hypoglycemia Guaifenesin (Robitussin) 10 ml PO Q4H PRN PRN PRN Reason: COUGH Heparin Sodium (Beef Lung) () 50 units IV UD PRN PRN Reason: PICC Line Heparin Flush Heparin Sodium (Porcine) (Heparin Na) 5,000 unit SC Q12 [facility] Last Admin: 09/29/19 08:47 Dose: 5,000 unit Documented by: Hydralazine HCl (Apresoline Iv) 10 mg IV Q4H PRN PRN PRN Reason: SBP > 160 Last Admin: 09/27/19 16:34 Dose: 10 mg Documented by: Sodium Chloride () 250 mls @ 15 mls/hr IV .[id number] PRN PRN Reason: Saline Flush Last Infusion: 09/29/19 02:29 Dose: 0 mls/hr Documented by: Insulin Glargine (Lantus (Bkc)) 10 units SC BID [facility] Last Admin: 09/29/19 08:46 Dose: 10 u Documented by: Insulin Human Lispro (Humalog Kwikpen ([facility])) 0 unit SC ACHS [facility]; Protocol Last Admin: 09/29/19 11:48 Dose: 16 u Documented by: Insulin Human Lispro (Humalog Kwikpen ([facility])) 10 unit SC TIDAC [facility] Ketoconazole (Nizoral) 1 applic TOPICAL BID [facility]; Protocol Last Admin: 09/29/19 08:49 Dose: 1 applicatio Documented by: Magnesium Hydroxide (Milk Of Magnesia) 30 ml PO DAILY PRN PRN Reason: Constipation Melatonin (Melatonin) 3 mg PO QHS [facility] Last Admin: 09/28/19 22:00 Dose: 3 mg Documented by: Nitroglycerin (Nitrostat) 0.4 mg SUBLINGUAL Q5M PRN PRN Reason: CARDIAC/CHEST PAIN Ondansetron HCl (Zofran) 4 mg IV Q8H PRN PRN PRN Reason: NAUSEA/VOMITING Polyethylene Glycol (Miralax) 17 gm PO DAILY [facility] Last Admin: 09/29/19 08:46 Dose: 17 gm Documented by: Quetiapine Fumarate (Seroquel) 25 mg PO QHS [facility] Last Admin: 09/28/19 22:00 Dose: 25 mg Documented by: Senna/Docusate Sodium (Senokot-S, Lora-Colace) 2 tablet PO BID [facility] Last Admin: 09/29/19 08:48 Dose: 2 tablet Documented by: Sodium Chloride () 10 - 40 ml IV UD PRN PRN Reason: Open End PICC Flush Last Admin: 09/29/19 02:31 Dose: 10 ml Documented by: Sodium Chloride (0.9% Nacl (Sterile) Posiflush) 10 - 40 ml IV UD PRN PRN Reason: Port access or dressing change Sodium Chloride () 10 - 40 ml IV UD PRN PRN Reason: SALINE FLUSH Tamsulosin HCl (Flomax) 0.4 mg PO DAILY@1730 [facility] Last Admin: 09/28/19 17:53 Dose: 0.4 mg Documented by: Throat Lozenges (Cepacol Sore Throat Lozenge) 1 lozenge MUCOUS MEM Q2H PRN PRN PRN Reason: Sore Throat/Cough STROKE Vital Signs/Narrative: Vital Signs Temp Pulse Resp BP Pulse Ox 09/29/19 15:00 90 09/29/19 14:40 98.5 F 94 18 114/72 98 Medical Necessity - Tobacco Use Smoking Status: Former smoker Tobacco Use: Non-smoker Assessment/Plan All Active Problems Septic shock (Acute) Complicated UTI (urinary tract infection) (Acute) Urinary retention (Acute) Hyperosmolar hyperglycemic coma due to diabetes mellitus without ketoacidosis (Acute) Severe sepsis (Acute) UTI (urinary tract infection) (Acute) Acute kidney injury (Acute) Aspiration into airway (Acute) UTI (urinary tract infection) (Acute) Respiratory failure (Acute) The patient is a 69 y/o M WITH 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 In ED, she was found to have hypoglycemia 634, sodium 157, chloride 129, BUN/creatinine 29/1.69, UA showing pyuria WBC 25-50 cells, bacteria 4+, RBC 10- 25, LE 500 but nitrite negative. Reese catheter was inserted, started on IV meropenem, IV fluid resuscitation and admitted in ICU. In ICU, patient had low-grade temperature T-max 99.6 but patient is more awake. 1. Severe sepsis complicated UTI: Patient was hemodynamically stable in ICU and blood pressure between 130s to 150s. Lactic acid was elevated 4.5 in ER most probably secondary to hypovolemia and hypoperfusion probably from HHS. Lactic acid improved to 3.2 with IV fluid rehydration. Urine culture from January 2017 shows Proteus mirabilis more than 100,000; E. coli MDRO ESBL positive in November 2016 and therefore started on meropenem and started and continued. Patient also has history of BPH and is on Flomax and finasteride. Blood cultures x2 and urine culture are pending. Patient was transferred to PCU 09/29/2019: Patient was awake, more alert and answers simple question in the morning. As per the daughterJoaquin he was more lethargic and more short of breath. Patient may need outpatient sleep study for evaluation of obstructive sleep apnea/obesity hypoventilation syndrome as patient is snores and breathes deeply on sleep. He has good appetite Urine culture shows E. coli pansensitive. ESBL negative. Discussed with ID. Antibiotic change from meropenem to amoxicillin. (2) Hyperglycemic Hyperosmolar State with new onset diabetes mellitus type II: Patient had about 3 L of normal saline overnight and other insulin drip which is transitioned to Accu-Cheks with basal and sliding scale Humalog coverage. A1c 9.7, serum osmolality 351, serum acetone negative. 09/29/2019:Sodium level improved. Hypernatremia resolved. Blood sugar high. Humalog 10 units subcutaneous 3 times daily with meal along with Accu-Cheks and sliding scale insulin coverage. On Lantus 10 units of maintenance. (3) Acute kidney injury most probably prerenal from HHS/possible ATN, sepsis from UTI. Admission BUN/Cr 33/2.15, prior baseline creatinine noted to be 1.0- 1.2. Kidney function returned to his baseline, most recent . Rest as mentioned above. Hold nephrotoxic medications and monitor kidney function, intake and output. Urine is yellowish tinge with pus flecks noted in Reese catheter. 09/29/2019: Kidney function has improved. Acute kidney disorder. (4) Acute Encephalopathy, Metabolic, Infectious secondary to sepsis, HHS and acute kidney injury as mentioned above: Patient has limited and dependent ADL and chronic neurological deficit. Underlying disorder. (5) history of a stroke with complicated hydrocephalus s/p [employer]ICE TECH Shunt: CT head with chronic involutional changes with a right-sided [employer] shunt identified with the tip in the left frontal horn with stable atrophy and encephalomalacia involving the left frontal lobe as well as the cerebellum. On baby aspirin. (6) Hypertension: Blood pressure mildly elevated. Titrate antihypertensive medication as per blood pressure. (7) COPD bilateral lung bases atelectasis and left lower small pleural effusion and pleural thickening: Continue bronchodilator, bronchopulmonary hygiene incentive spirometry and chest physiotherapy. (8) Anxiety and Depression: continue home q HS seroquel regimen; hold for sedation/lethargic (9) GERD: PPI. (10) DVT prophylaxis: SCDs, heparin. CODE STATUS/advanced directive: DNR CC arrest Talked with the patient's power of ip technology transactions attorney Ms. Nuñez and was told to address her concerns. Incentive spirometry, chest physiotherapy and glucose control.. Clinical Impression(s) from Imaging Studies Chest X-Ray 11/06/19 13:06 IMPRESSION: Increased markings at the left lung base. Follow-up is recommended. Electronically Signed: Kurt Barb, at 13:26 EST , Service support , Brain CT 09/27/19 13:07 IMPRESSION: Chronic involutional changes of the brain. A right-sided ventriculoperitoneal shunt tube is seen with the tip in the left frontal horn. Stable atrophy and encephalomalacia involving the left frontal lobe as well as the cerebellum. Electronically Signed: Kurt Barb, at 14:10 EST , Service support , Chest X-Ray 09/28/19 05:55 IMPRESSION: Minimal bilateral basilar atelectasis with possible left-sided pleural effusion versus pleural thickening. Otherwise no acute process identified, no significant change in the interval. Code Visit Inpatient E&M: 09777 Subs Hosp L3
[2019-09-29] MEDS: Insulin Lispro 100 UNIT/ML INSULN.PEN 10 UNIT SC (17:06)
[2019-09-29] MEDS: Tamsulosin HCl 0.4 MG Capsule PO (17:06)
[2019-09-29 17:16] LABS: Bedside Glucose 317 mg/dL (70-110)
[2019-09-29] MEDS: QUEtiapine 25 MG Tablet PO (21:01)
[2019-09-29] MEDS: MELATONIN 3 MG TABLET PO (21:01)
[2019-09-29 22:16] LABS: Bedside Glucose 253 mg/dL (70-110)
[2019-09-30 02:14] VITALS: BP 108/77; PULSE 81; RESP 18; TEMP 36.8; O2SAT 93
[2019-09-30 03:00] VITALS: PULSE 84
[2019-09-30 06:10] VITALS: BP 118/78; PULSE 82; RESP 18; TEMP 36.6; O2SAT 93
[2019-09-30] MEDS: Amoxicillin 200MG/5 ML Susp PO.SYRINGE 500 MG PO (06:14)
[2019-09-30 06:25] LABS: Absolute Lymphocyte Count 1.63 X10^3/uL (0.83-4.51); Absolute Neutrophil Count 3.8 X10^3/uL (2.0-7.7); Basophil# 0.03 X10^3/uL; Basophil% 0.5 % (0-1); Eosinophil# 0.29 X10^3/uL; Eosinophils% 4.7 % (0-5); Hematocrit 45.9 % (40-54); Hemoglobin 14.7 g/dL (13.0-16.5); Lymphocyte # 1.63 X10^3/ul (4.0); Lymphocyte % 26.2 % (19-41); Mean Corpuscular Hgb 30.3 pg (27.0-32.0); Mean Corpuscular Volume 94.6 fL (80-94); Mean Platelet Vol. 10.8 fl (6.2-12.0); Monocyte# 0.47 X10^3/uL; Monocyte% 7.5 % (0-10); NRBC Flagged by Analyzer 0 % (0-5); Neutrophil # 3.77 X10^3/uL (2.7-7.7); Neutrophil % 60.5 % (47-70); POSITIVE COUNT YES; Platelet Count 86 K/mm3 (150-450); RBC Distribution Width CV 14.4 % (11.6-14.6); RBC Distribution Width SD 50.4 fl (35.1-43.9); Red Blood Count 4.85 M/mm3 (4.6-6.2); White Blood Count 6.2 K/mm3 (4.4-11.0)
[2019-09-30 06:52] VITALS: O2SAT 93
[2019-09-30 06:54] LABS: Anion Gap 9 (5-15); BUN 21 mg/dL (7-18); BUN/Creat Ratio 17.6 RATIO (10-20); Calcium,Total 8.3 mg/dL (8.5-10.1); Chloride 115 mmol/L (98-107); Creatinine, Serum 1.19 mg/dL (0.70-1.30); EST Glomerular Filtration Rate 65 mL/min (>60); Est Glom Filt Rate - Afr Amer 78 mL/min (>60); Estimated Creatinine Clearance 61.34 ml/min; Glucose 235 mg/dL (74-106); Potassium 3.9 mmol/L (3.5-5.1); Sodium Level 149 mmol/L (136-145)
[2019-09-30] MEDS: Aspirin 81 MG TAB.CHEW PO (08:36)
[2019-09-30] MEDS: amLODIPine 5 MG Tablet PO (08:37)
[2019-09-30] MEDS: Heparin Injection (Vial) 5,000 UNIT/ML VIAL 5000 UNIT SC (08:37)
[2019-09-30] MEDS: Famotidine 20 MG Tablet PO (08:38)
[2019-09-30] MEDS: Ketoconazole Cream 1 APPLIC TOPICAL (08:39)
[2019-09-30] MEDS: Senna/Docusate Sodium 1 Tablet 2 TABLET PO (08:39)
[2019-09-30] MEDS: Finasteride 5 MG Tablet PO (08:39)
[2019-09-30] MEDS: Insulin Lispro 100 UNIT/ML INSULN.PEN 10 UNIT SC (08:40)
[2019-09-30] MEDS: Insulin Lispro 100 UNIT/ML INSULN.PEN SC (08:41)
[2019-09-30 08:43] VITALS: BP 144/87; PULSE 85; RESP 18; TEMP 36.8; O2SAT 96
[2019-09-30 08:51] LABS: Bedside Glucose 261 mg/dL (70-110)
--- NOTE | 2019-09-30 09:42 | PCM.TXEXTCAR ---
- Diet 09/28/19 09:57 Carb [Diet: Carbohydrate Controlled] Food consistency:: Puree Liquid Consistency:: Honey Thick Is pt able to select menu?: No - Routine Orders/Code Status Suppository Type: Dulcolax 10mg Suppository Frequency: Daily PRN Routine Lab Work: BMP - on 10/02/19 for Hypernatremia Code Status: DNRCC-A - Therapies Weight Bearing: Weight bearing as tolerated Extremity Affected:: Bilateral Lower Physical Therapy: Eval and Treat Occupational Therapy: Eval and Treat Speech Therapy: Eval and Treat - Allergies/Procedures Done in Hospital Allergies/Adverse Reactions: Allergies No Known Allergies Allergy (Verified 09/27/19 12:17) - Type of Care/Length of Stay Estimated LOS: Convalescent Care Less Than 30 days Type of Care Needed: Skilled Rehab Potential: Fair Prognosis: Fair - Additional Orders/Day of Discharge Day of Discharge: 09/30/19 - Dietary and Speech Recommendations Dietitian Recommendations/Changes: Recommend CHO controlled diet, consistency per PUBLIC AID ELIGIBILITY ASSISTANT. If PO at meals is poor, recommend regular diet. - Follow Up Care Primary Care Physician: Xu Diaz MD [Primary Care Provider] - Please follow up with your Primary Care Physician in: in 1-2 week Please Follow Up With: Polo Fisher MD When: for recurrent UTI as needed
--- NOTE | 2019-09-30 09:44 | PCM.DC.SUM ---
Discharge Date and Diagnosis Date of Admission: 09/27/19 Date of Discharge: 09/30/19 - Primary Discharge Diagnosis Active and Suspected Problems Septic shock (Acute) Complicated UTI (urinary tract infection) (Acute) Urinary retention (Acute) Hyperosmolar hyperglycemic coma due to diabetes mellitus without ketoacidosis (Acute) - Secondary Discharge Diagnosis Chronic Problems HTN (hypertension) (Chronic) HLD (hyperlipidemia) (Chronic) Anxiety and depression (Chronic) Anemia of chronic disease (Chronic) Anemia (Chronic) AAA (abdominal aortic aneurysm) (Chronic) Hydrocephalus (Chronic) dvt in right upper arm (Chronic) S/P FARM MANAGEMENT SUPERVISOR shunt (Chronic) CVA (cerebral vascular accident) (Chronic) 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 In ED, she was found to have hypoglycemia 634, sodium 157, chloride 129, BUN/creatinine 29/1.69, UA showing pyuria WBC 25-50 cells, bacteria 4+, RBC 10-25, LE 500 but nitrite negative. Reese catheter was inserted, started on IV meropenem, IV fluid resuscitation and admitted in ICU. In ICU, patient had low-grade temperature T-max 99.6 but patient is more awake. Patient was initially admitted in ICU and then transferred to floor, PCU 1. Severe sepsis complicated UTI: Patient was hemodynamically stable in ICU and blood pressure between 130s to 150s. Lactic acid was elevated 4.5 in ER most probably secondary to hypovolemia and hypoperfusion probably from HHS. Lactic acid improved to 3.2 with IV fluid rehydration. Urine culture from January 2017 shows Proteus mirabilis more than 100,000; E. coli MDRO ESBL positive in November 2016 and therefore started on meropenem and started and continued. Patient also has history of BPH and is on Flomax and finasteride. Blood cultures x2 and urine culture are pending. Patient was transferred to PCU 09/29/2019: Patient was awake, more alert and answers simple question in the morning. As per the daughterJoaquin he was more lethargic and more short of breath. Patient may need outpatient sleep study for evaluation of obstructive sleep apnea/obesity hypoventilation syndrome as patient is snores and breathes deeply on sleep. He has good appetite Urine culture shows E. coli pansensitive. ESBL negative. Discussed with ID. Antibiotic change from meropenem to amoxicillin. 09/30/2019: Patient is more awake and alert. Patient's daughter, Anna was called and updated about clinical situation. Patient mental status is on baseline. No fever or chills. Hemodynamically stable. Pulse ox 96% on room air (2) Hyperglycemic Hyperosmolar State with new onset diabetes mellitus type II: Patient had about 3 L of normal saline overnight and other insulin drip which is transitioned to Accu-Cheks with basal and sliding scale Humalog coverage. A1c 9.7, serum osmolality 351, serum acetone negative. 09/29/2019:Sodium level improved. Hypernatremia resolved. Blood sugar high. Humalog 10 units subcutaneous 3 times daily with meal along with Accu-Cheks and sliding scale insulin coverage. 09/30/2019: Sodium level went up to 144 to 149 after discontinuation of D5W. Nursing staff was advised to free water bring down sodium down. Daughter was further updated about giving 1.5 to 2 L free water every day. Blood sugar was high 459 which was controlled to 235 on BMP. Lantus was increased to 15 units subcutaneous 3 times daily and Humalog insulin 15 units subcutaneous 3 times daily with meal along with Accu-Chek essences and cover with Humalog sliding scale. Daughter was educated that Humalog and Lantus might need titration based on the Accu-Cheks. (3) Acute kidney injury most probably prerenal from HHS/possible ATN, sepsis from UTI. Admission BUN/Cr 33/2.15, prior baseline creatinine noted to be 1.0-1.2. Kidney function returned to his baseline, most recent . Rest as mentioned above. Hold nephrotoxic medications and monitor kidney function, intake and output. Urine is yellowish tinge with pus flecks noted in Reese catheter. 09/29/2019: Kidney function has improved. Acute kidney disorder. (4) Acute Encephalopathy, Metabolic, Infectious secondary to sepsis, HHS and acute kidney injury as mentioned above: Patient has limited and dependent ADL and chronic neurological deficit. Underlying disorder. 09/30/2019 acute encephalopathy resolved. (5) history of a stroke with complicated hydrocephalus s/p FARM MANAGEMENT SUPERVISOR Shunt: CT head with chronic involutional changes with a right-sided [employer]ARM MANAG[employer]PER[employer] shunt identified with the tip in the left frontal horn with stable atrophy and encephalomalacia involving the left frontal lobe as well as the cerebellum. On baby aspirin. (6) Hypertension: Blood pressure mildly elevated. Titrate antihypertensive medication as per blood pressure. (7) COPD bilateral lung bases atelectasis and left lower small pleural effusion and pleural thickening: Continue bronchodilator, bronchopulmonary hygiene incentive spirometry and chest physiotherapy. Patient is chest physiotherapy including incentive spirometry and flutter valve. This was educated to the patient's daughter. (8) Anxiety and Depression: continue home q HS seroquel regimen; hold for sedation/lethargic (9) GERD: PPI. (10) DVT prophylaxis: SCDs, heparin. CODE STATUS/advanced directive: DNR CC arrest Talked with the patient's power of ticket taker ferryboat Ms. Nuñez and was told to address her concerns on 09/29/2019 and 09/30/2019. It was emphasized about continued need of incentive spirometry, chest physiotherapy and glucose control, PT and OT in his speech and swallow evaluation and therapy. Discharge medication reconciliation done. Discharge follow-up instructions completed. Discharge process discussed with the patient and all questions were answered to patient's satisfaction. Prescriptions were given including amoxicillin Total time spent, exact 35 minutes on discharge meds reconciliation, examination, review of imaging and blood test and discussion with the patient on follow-up instructions. Clinical Impression(s) from Imaging Studies Chest X-Ray 09/27/19 13:06 IMPRESSION: Increased markings at the left lung base. Follow-up is recommended. Electronically Signed: Kurt Day, at 13:26 EST , Service support , Brain CT 09/27/19 13:07 IMPRESSION: Chronic involutional changes of the brain. A right-sided ventriculoperitoneal shunt tube is seen with the tip in the left frontal horn. Stable atrophy and encephalomalacia involving the left frontal lobe as well as the cerebellum. Electronically Signed: Kurt Day, at 14:10 EST , Service support , Chest X-Ray 09/28/19 05:55 IMPRESSION: Minimal bilateral basilar atelectasis with possible left-sided pleural effusion versus pleural thickening. Otherwise no acute process identified, no significant change in the interval. Subjective: Seen and examined. Patient is more awake, alert and oriented x4. Patient told his name and his daughter's name, president's name, aware of the place and time of the day. Sitting on the bed. Blood sugars are better controlled. Patient's daughter Joaquin was called and updated about the clinical situation and progress. - Physical Exam Vitals/I&O's: Vital Signs Temp Pulse Resp BP Pulse Ox 98.2 F 85 18 144/87 H 96 09/30/19 08:43 09/30/19 08:43 09/30/19 08:43 09/30/19 08:43 09/30/19 08:43 Oxygen Flow Rate (L/min) 2 Oxygen Delivery Method Room Air Weight: 200 lb 13.458 oz Body Mass Index (BMI) 27.8 Finger Stick Blood Glucose 151 Intake and Output for Last 24 Hours 09/28/19 09/29/19 09/30/19 23:59 23:59 23:59 Intake Total 4072.35 / 4072.35 1593.17 / 1593.17 0 / 0 Output Total 875 / 875 1055 / 1055 350 / 350 Balance 3197.35 / 3197.35 538.17 / 538.17 -350 / -350 General: Alert, Oriented x3, Cooperative HEENT: Atraumatic, PERRLA, EOMI, Normocephalic Neck: Supple, No JVD, Negative Carotid Bruits Lungs: Clear to auscultation, No rhonchi, No wheeze, No rales, Diminished - Air entry is diminished in bilateral lung bases Cardiovascular: Regular rate, Regular Rhythm, Normal S1, Normal S2, No murmurs Abdomen: Bowel Sounds Present, Soft, Non Tender, Non-Distended, - - On pur?ed diet. Scar chichi of previous PEG tube but currently no feeding tube. Extremities: No edema, Capillary Refill Less than 3 Seconds Skin: No rashes, No breakdown Musculoskeletal: No Tenderness to Palpation of Joints or Extremities, Arthritic Changes, Muscle Wasting Neurological: - - Weakness of both lower extremity, DTR positive. Chronic left-sided facial weakness from previous stroke Mild cognitive deficit secondary to stroke. Psych/Mental Status: Normal Affect, Appropriate Microbiology Past 72 Hours 09/27/19 13:25 Blood Culture (Wb) - Left Wrist Blood Culture - Preliminary No growth in 48 hours. 09/27/19 12:26 Blood Culture (Wb) - Anticubital Left Blood Culture - Preliminary No growth in 48 hours. 09/27/19 13:30 Urine Catheter - Catheter Urine Culture - Final Escherichia coli Laboratory Results 09/29/19 11:46: POC Glucose 419 H 09/29/19 12:32: WBC 8.2, RBC 5.43, Hgb 16.3, Hct 51.6, MCV 95.0 H, MCH 30.0, MCHC 31.6 L, RDW Std Deviation 52.3 H, RDW Coeff of Jagruti 14.7 H, Plt Count 99 L, MPV 10.4, Immature Gran % (Auto) 0.600, Neut % (Auto) 70.6 H, Lymph % (Auto) 19.6, [place] % (Auto) 5.6, Eos % (Auto) 2.9, Baso % (Auto) 0.7, Absolute Neuts (auto) 5.8, Absolute Lymphs (auto) 1.61, Nucleated RBC % 0, Platelet Estimate SLT DEC, Plt Morphology Comment LARGE 09/29/19 12:32: Sodium 144, Potassium 3.8, Chloride 113 H, Carbon Dioxide 22.0, Anion Gap 9, BUN 21 H, Creatinine 1.30, Estim Creat Clear Calc 56.15, Est GFR (MDRD) Af Amer 71, Est GFR (MDRD) Non-Af 58 L, BUN/Creatinine Ratio 16.2, Glucose 459 H*, Calcium 8.3 L, Total Bilirubin 0.80, AST 51 H, ALT 35, Alkaline Phosphatase 109, Total Protein 7.3, Albumin 2.9 L, Globulin 4.4 H, Albumin/Globulin Ratio 0.7 L 09/29/19 17:03: POC Glucose 317 H 09/29/19 21:03: POC Glucose 253 H 09/30/19 05:35: WBC 6.2, RBC 4.85, Hgb 14.7, Hct 45.9, MCV 94.6 H, MCH 30.3, MCHC 32.0, RDW Std Deviation 50.4 H, RDW Coeff of Jagruti 14.4, Plt Count 86 L, MPV 10.8, Immature Gran % (Auto) 0.600, Neut % (Auto) 60.5, Lymph % (Auto) 26.2, [place] % (Auto) 7.5, Eos % (Auto) 4.7, Baso % (Auto) 0.5, Absolute Neuts (auto) 3.8, Absolute Lymphs (auto) 1.63, Nucleated RBC % 0 09/30/19 05:35: Sodium 149 H, Potassium 3.9, Chloride 115 H, Carbon Dioxide 25.0, Anion Gap 9, BUN 21 H, Creatinine 1.19, Estim Creat Clear Calc 61.34, Est GFR (MDRD) Af Amer 78, Est GFR (MDRD) Non-Af 65, BUN/Creatinine Ratio 17.6, Glucose 235 H, Calcium 8.3 L 09/30/19 08:35: POC Glucose 261 H Current Medications Acetaminophen (Tylenol) 650 mg PO Q6H PRN PRN PRN Reason: Non-cardiac pain (mod-severe) Hydrocodone Bitart/Acetaminophen ([place] 5mg-325mg) 1 - 2 tablet PO Q4H PRN PRN PRN Reason: Pain Score 4-10/10 Al Hydroxide/Mg Hydroxide (Mylanta Ii) 15 - 30 ml PO Q4H PRN PRN PRN Reason: INDIGESTION Albuterol Sulfate (Ventolin Aerosols) 2.5 mg INHALATION Q2H PRN PRN PRN Reason: dyspnea, wheezing Amlodipine Besylate (Norvasc) 5 mg PO DAILY [facility] Last Admin: 09/30/19 08:37 Dose: 5 mg Documented by: Amoxicillin (Amoxil 200mg/5ml Susp) 500 mg PO Q8 [facility] Last Admin: 09/30/19 06:14 Dose: 500 mg Documented by: Artificial Tears (Tears Naturale, Artificial Tears) 2 drop EACH EYE TID [facility] Last Admin: 09/30/19 06:14 Dose: 2 drop Documented by: [facility], [facility] Admin: 09/30/19 08:36 Dose: 81 mg Documented by: Dextrose (D50w Syringe) 0 gm IV X1 PRN; Protocol PRN Reason: Hypoglycemia Protocol Dextrose (D50w Syringe) 0 gm IV X1 PRN; Protocol PRN Reason: Hypoglycemia Famotidine (Pepcid) 20 mg PO BID [facility] Last Admin: 09/30/19 08:38 Dose: 20 mg Documented by: Finasteride (Proscar) 5 mg PO DAILY [facility] Last Admin: 09/30/19 08:39 Dose: 5 mg Documented by: Glucagon () 1 mg IM .X1 PRN PRN Reason: Hypoglycemia Guaifenesin (Robitussin) 10 ml PO Q4H PRN PRN PRN Reason: COUGH Heparin Sodium (Beef Lung) () 50 units IV UD PRN PRN Reason: PICC Line Heparin Flush Heparin Sodium (Porcine) (Heparin Na) 5,000 unit SC Q12 [facility] Last Admin: 09/30/19 08:37 Dose: 5,000 unit Documented by: Hydralazine HCl (Apresoline Iv) 10 mg IV Q4H PRN PRN PRN Reason: SBP > 160 Last Admin: 09/27/19 16:34 Dose: 10 mg Documented by: Sodium Chloride () 250 mls @ 15 mls/hr IV .[id number] PRN PRN Reason: Saline Flush Last Infusion: 09/30/19 06:18 Dose: Infused Documented by: Insulin Glargine (Lantus (Bkc)) 10 units SC BID [facility] Last Admin: 09/30/19 08:40 Dose: 10 u Documented by: Insulin Human Lispro (Humalog Kwikpen (Bkc)) 0 unit SC ACHS [facility]; Protocol Last Admin: 09/30/19 08:41 Dose: 9 u Documented by: Insulin Human Lispro (Humalog Kwikpen (Bkc)) 10 unit SC TIDAC [facility] Last Admin: 09/30/19 08:40 Dose: 10 units Documented by: Ketoconazole (Nizoral) 1 applic TOPICAL BID [facility]; Protocol Last Admin: 09/30/19 08:39 Dose: 1 applicatio Documented by: Magnesium Hydroxide (Milk Of Magnesia) 30 ml PO DAILY PRN PRN Reason: Constipation Melatonin (Melatonin) 3 mg PO QHS [facility] Last Admin: 09/29/19 21:01 Dose: 3 mg Documented by: Nitroglycerin (Nitrostat) 0.4 mg SUBLINGUAL Q5M PRN PRN Reason: CARDIAC/CHEST PAIN Ondansetron HCl (Zofran) 4 mg IV Q8H PRN PRN PRN Reason: NAUSEA/VOMITING Polyethylene Glycol (Miralax) 17 gm PO DAILY [facility] Last Admin: 09/29/19 08:46 Dose: 17 gm Documented by: Quetiapine Fumarate (Seroquel) 25 mg PO QHS [facility] Last Admin: 09/29/19 21:01 Dose: 25 mg Documented by: Senna/Docusate Sodium (Senokot-S, Lora-Colace) 2 tablet PO BID [facility] Last Admin: 09/30/19 08:39 Dose: 2 tablet Documented by: Sodium Chloride () 10 - 40 ml IV UD PRN PRN Reason: Open End PICC Flush Last Admin: 09/29/19 21:11 Dose: 10 ml Documented by: Sodium Chloride (0.9% Nacl (Sterile) Posiflush) 10 - 40 ml IV UD PRN PRN Reason: Port access or dressing change Sodium Chloride () 10 - 40 ml IV UD PRN PRN Reason: SALINE FLUSH Tamsulosin HCl (Flomax) 0.4 mg PO DAILY@1730 [facility] Last Admin: 09/29/19 17:06 Dose: 0.4 mg Documented by: Throat Lozenges (Cepacol Sore Throat Lozenge) 1 lozenge MUCOUS MEM Q2H PRN PRN PRN Reason: Sore Throat/Cough Home Medications: Medications to take at Discharge Polyvinyl Alcohol [Artificial Tears] 2 drop EACHEYE TID 11/25/16 Acetaminophen [Acetaminophen 8 Hour] 650 mg PO Q4H PRN PRN 02/16/17 Meclizine HCl [Antivert] 12.5 mg PO DAILY 02/16/17 Amlodipine [Norvasc] 5 mg PO DAILY 09/27/19 Aspirin 81 mg PO DAILY 09/27/19 Finasteride 5 mg PO DAILY 09/27/19 Ketoconazole [Nizoral Cream] 1 applic TOPICAL BID 09/27/19 Melatonin 3 mg PO QHS 09/27/19 Polyethylene Glycol 3350 [Miralax] 17 gm PO DAILY 09/27/19 Quetiapine Fumarate [Seroquel] 25 mg PO QHS 09/27/19 Sennosides/Docusate Sodium [Senexon-S Tablet] 2 ea PO BID 09/27/19 Amoxicillin 200MG/5 ML Susp [Amoxil 200mg/5mL Susp] 500 mg PO Q8 6 Days #240 po.syringe 09/30/19 Guaifenesin [Robitussin] 10 ml PO Q4H PRN PRN udc 09/30/19 Insulin Glargine,Hum.rec.anlog [Lantus] 15 unit SQ BID #1 ml 09/30/19 Insulin Lispro [Humalog KwikPen] 15 unit SUBCUT TIDAC insuln.pen 09/30/19 Insulin Lispro [Humalog KwikPen] See Protocol SUBCUT ACHS insuln.pen 09/30/19 Following Prescrptions Were Given to Patient: Amoxicillin 200MG/5 ML Susp [Amoxil 200mg/5mL Susp] 500 mg PO Q8 6 Days #240 po.syringe Prescription Printed Insulin Glargine,Hum.rec.anlog [Lantus] 15 unit SQ BID #1 ml Prescription Printed Primary Care Physician: Xu Diaz MD [Primary Care Provider] - Please follow up with your Primary Care Physician in: in 1-2 week Please Follow Up With: Polo Fisher MD When: for recurrent UTI as needed Medical Necessity - Tobacco Use Smoking Status: Former smoker Tobacco Use: Non-smoker Meaningful Use Info Meaningful Use Diagnoses (Choose all that apply): None applicable Code Visit Inpatient E&M: 34022 Disch Hosp
== END 2019-09-30 11:20 | disposition skilled nursing facility (03) | DRG 871 ==
LOC: ED 14:20 → ICU 15:11 → PCU 09-28 16:38
PROVIDERS: Admitting Provider Family Medicine; Emergency Provider Emergency Medicine; Family Provider Family Medicine; PCP Family Medicine; Referring Provider Family Medicine; Visit Provider Internal Medicine
DX: A41.51 Sepsis due to Escherichia coli [E. coli] (principal); E11.00 Type 2 diabetes mellitus with hyperosmolarity without nonketotic hyperglycemic-hyperosmolar coma (NKHHC); R65.21 Severe sepsis with septic shock; G93.41 Metabolic encephalopathy; N17.9 Acute kidney failure, unspecified; G91.9 Hydrocephalus, unspecified; E87.0 Hyperosmolality and hypernatremia; N39.0 Urinary tract infection, site not specified; Z98.2 Presence of cerebrospinal fluid drainage device; I69.392 Facial weakness following cerebral infarction; N40.0 Benign prostatic hyperplasia without lower urinary tract symptoms; I10 Essential (primary) hypertension; J44.9 Chronic obstructive pulmonary disease, unspecified; Z66 Do not resuscitate; Z87.891 Personal history of nicotine dependence; E87.8 Other disorders of electrolyte and fluid balance, not elsewhere classified; E78.5 Hyperlipidemia, unspecified; F32.9 Major depressive disorder, single episode, unspecified; F41.9 Anxiety disorder, unspecified; D63.8 Anemia in other chronic diseases classified elsewhere
CPT/HCPCS: 36415; 36569; 51702; 70450; 71045; 80048; 80053; 81001; 82009; 82962; 83036; 83605; 83735; 83930; 84100; 84484; 85025; 85610; 85730; 87040; 87077; 87086; 87088; 87186; 92507; 92610; 93005; 97110; 97162; 97166; 97530; 97802; 99285; J2185; J7030; J7050; A4216

== ENCOUNTER → 2020-01-01 05:00 | Outpatient (REF) | payer MEDICARE, OTHER, SELFPAY ==
[2019-09-27 16:13] VITALS: BMI 27.8
[2020-01-01 08:38] LABS: Hematocrit 40.9 % (40-54); Hemoglobin 13.1 g/dL (13.0-16.5); Mean Corpuscular Hgb 30.3 pg (27.0-32.0); Mean Corpuscular Volume 94.5 fL (80-94); Mean Platelet Vol. 10.1 fl (6.2-12.0); Platelet Count 154 K/mm3 (150-450); RBC Distribution Width CV 15.1 % (11.6-14.6); RBC Distribution Width SD 52.9 fl (35.1-43.9); Red Blood Count 4.33 M/mm3 (4.6-6.2)
[2020-01-01 08:45] LABS: Anion Gap 5 (5-15); BUN 26 mg/dL (7-18); BUN/Creat Ratio 20.8 RATIO (10-20); Calcium,Total 8.4 mg/dL (8.5-10.1); Chloride 111 mmol/L (98-107); Creatinine, Serum 1.25 mg/dL (0.70-1.30); EST Glomerular Filtration Rate 61 mL/min (>60); Est Glom Filt Rate - Afr Amer 74 mL/min (>60); Glucose 275 mg/dL (74-106); Potassium 3.6 mmol/L (3.5-5.1); Sodium Level 139 mmol/L (136-145)
== END ==
LOC: OLS.WCC 05:00
PROVIDERS: PCP Family Medicine; Visit Provider Family Medicine
DX: D64.9 Anemia, unspecified (principal); I10 Essential (primary) hypertension; E11.9 Type 2 diabetes mellitus without complications
CPT/HCPCS: 36415; 80048; 83036; 85027

== ENCOUNTER → 2020-01-30 05:00 | Outpatient (REF) | payer MEDICARE, OTHER, SELFPAY ==
[2019-09-27 16:13] VITALS: BMI 27.8
[2020-01-30 08:33] LABS: Hemoglobin A1c 6.7 % (4.2-6.3)
== END ==
LOC: OLS.WCC 05:00
PROVIDERS: PCP Family Medicine; Visit Provider Family Medicine
DX: E11.9 Type 2 diabetes mellitus without complications (principal)
CPT/HCPCS: 36415; 83036

== ENCOUNTER → 2020-05-02 05:00 | Outpatient (REF) | payer MEDICARE, OTHER, SELFPAY ==
[2019-09-27 16:13] VITALS: BMI 27.8
[2020-05-02 08:05] LABS: Absolute Lymphocyte Count 1.44 X10^3/uL (0.83-4.51); Absolute Neutrophil Count 9.9 X10^3/uL (2.0-7.7); Basophil# 0.03 X10^3/uL; Basophil% 0.2 % (0-1); Eosinophil# 0.07 X10^3/uL; Eosinophils% 0.5 % (0-5); Hematocrit 50.8 % (40-54); Hemoglobin 16.4 g/dL (13.0-16.5); Lymphocyte # 1.44 X10^3/ul (4.0); Lymphocyte % 11.2 % (19-41); Mean Corp Hgb Conc 32.3 g/dL (32-36); Mean Corpuscular Hgb 30.1 pg (27.0-32.0); Mean Corpuscular Volume 93.2 fL (80-94); Mean Platelet Vol. 10.5 fl (6.2-12.0); Monocyte# 1.34 X10^3/uL; Monocyte% 10.4 % (0-10); NRBC Flagged by Analyzer 0 % (0-5); Neutrophil % 77.2 % (47-70); Platelet Count 163 K/mm3 (150-450); RBC Distribution Width CV 17.8 % (11.6-14.6); RBC Distribution Width SD 60.1 fl (35.1-43.9); Red Blood Count 5.45 M/mm3 (4.6-6.2); White Blood Count 12.8 K/mm3 (4.4-11.0)
[2020-05-02 11:16] LABS: Anion Gap 10 (5-15); BUN 22 mg/dL (7-18); BUN/Creat Ratio 18.5 RATIO (10-20); Calcium,Total 9.3 mg/dL (8.5-10.1); Chloride 105 mmol/L (98-107); Creatinine, Serum 1.19 mg/dL (0.70-1.30); EST Glomerular Filtration Rate 64 mL/min (>60); Est Glom Filt Rate - Afr Amer 78 mL/min (>60); Glucose 157 mg/dL (74-106); Potassium 4.4 mmol/L (3.5-5.1); Sodium Level 137 mmol/L (136-145)
== END ==
LOC: OLS.WCC 05:00
PROVIDERS: PCP Family Medicine; Visit Provider Family Medicine
DX: R53.83 Other fatigue (principal); R06.9 Unspecified abnormalities of breathing; R50.9 Fever, unspecified
CPT/HCPCS: 36415; 80048; 85025

== ENCOUNTER 2020-05-06 16:29 | Inpatient (IN) | payer MEDICARE, OTHER, SELFPAY ==
[2019-09-27 16:13] VITALS: BMI 27.8
[2020-05-06] VITALS (13 sets, daily range): BP systolic 85–113; BP diastolic 68–92; PULSE 39–97; RESP 16–30; TEMP 35.8–36.8; O2SAT 95–100; BMI 29.5
--- NOTE | 2020-05-06 16:48 | EKG12_ITS ---
Test Reason : REPEAT-RHYTHM CHANGE Blood Pressure : / mmHG Vent. Rate : 065 BPM Atrial Rate : 090 BPM P-R Int : 256 ms QRS Dur : 100 ms QT Int : 398 ms P-R-T Axes : 049 159 046 degrees QTc Int : 413 ms Sinus rhythm with 1st degree A-V block with Blocked Premature atrial complexes Inferior-posterior infarct , possibly acute ACUTE OR / STEMI Abnormal ECG Confirmed by RACHID GOMES, MARY ([id number]), acquisition editor SUSANNA STILES ([id number]) on 05/13/2020 9:51:34 AM Referred By: Isidro Cardoso Confirmed By:SYDNEY RASHID MD
--- NOTE | 2020-05-06 16:50 | ED.DCSUM_ITS ---
History of Present Illness Chief Complaint: Shortness of Breath Informant: SNF Onset: Today Narrative: Patient sent in from [facility] for reported increasing respiratory rate and low O2 sats. Patient was diagnosed with aspiration pneumonia on Wednesday. Per the notes from the ECF patient had increased respiratory rate and effort during therapy today and his O2 sats were noted to be in the 80s. He was placed on 2 L nasal cannula and sent to the ER for f urther evaluation. Patient is extremely hard of hearing. He will open his eyes and tell me that he cannot hear me but not answer any further questions. - Past Medical History (1) AAA (abdominal aortic aneurysm) Status: Chronic (2) Anemia Status: Chronic (3) Anxiety and depression Status: Chronic (4) CVA (cerebral vascular accident) Status: Chronic (5) HLD (hyperlipidemia) Status: Chronic (6) HTN (hypertension) Status: Chronic Past Medical History - Allergies and Home Meds Allergies/Adverse Reactions: Allergies No Known Allergies Allergy (Verified 09/27/19 12:17) Primary Care Physician: Xu Diaz MD [Primary Care Provider] - Prior records reviewed: Yes Surgical History: - - Hx prior peg tube place placement and removal, vp integration 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 - Family History Paternal Family History: Reports: Heart Disease, Hypertension Maternal Family History: Reports: Heart Disease Review of Systems ROS: Unable to Obtain Physical Exam Vital Signs/Narrative: Vital Signs Temp Pulse Resp BP Pulse Ox 05/06/20 16:37 98.3 F 97 20 H 113/89 H 97 05/06/20 16:35 98.3 F 97 16 113/89 H 97 Inital Vital Signs reviewed: Yes General: Well nourished, Well developed Head: Normocephalic ENT: Moist mucous membranes Neck: Supple Cardiovascular: Regular rate, Regular rhythm Respiratory: No distress, - - Diminished breath sounds at the right base Abdomen: Soft, Nontender Extremities: Nontender Skin: Normal color Neurological: - - Opens eyes and tells me that he cannot hear me when asking questions. Diagnostic/Tx/Re-eval Impressions Chest X-Ray 05/06/20 17:44 IMPRESSION: Chronic interstitial changes in both lung pa bilaterally superimposed acute pulmonary process Electronically Signed: Chris Celestin MD at 18:22 EDT , Service support , 05/06/20 17:44 Chest 1 View (Portable) [RAD] Stat Laboratory Results 05/06/20 05/06/20 05/06/20 17:00 17:00 17:00 WBC 10.2 RBC 4.56 L Hgb 13.6 Hct 42.8 MCV 93.9 MCH 29.8 MCHC 31.8 L RDW Std Deviation 61.7 H RDW Coeff of Jagruti 17.7 H Plt Count 180 MPV 10.6 Immature Gran % (Auto) 0.900 Neut % (Auto) 77.9 H Lymph % (Auto) 12.3 L [place] % (Auto) 8.1 Eos % (Auto) 0.3 Baso % (Auto) 0.5 Absolute Neuts (auto) 8.0 H Absolute Lymphs (auto) 1.26 Nucleated RBC % 0 PT 14.3 INR 1.2 APTT 30.2 Sodium 141 Potassium 4.5 Chloride 108 H Carbon Dioxide 22.0 Anion Gap 11 BUN 50 H Creatinine 1.69 H Estim Creat Clear Calc 45.28 Est GFR (MDRD) Af Amer 52 L Est GFR (MDRD) Non-Af 43 L BUN/Creatinine Ratio 29.6 H Glucose 314 H Lactic Acid Calcium 8.8 Total Bilirubin 0.50 AST 127 H ALT 152 H Alkaline Phosphatase 118 H Troponin I Total Protein 7.8 Albumin 2.6 L Globulin 5.2 H Albumin/Globulin Ratio 0.5 L Urine Color Urine Clarity Urine pH Ur Specific [place] Urine Protein Urine Glucose (UA) Urine Ketones Urine Occult Blood Urine Nitrite Urine Bilirubin Urine Urobilinogen Ur Leukocyte Esterase 05/06/20 05/06/20 05/06/20 17:00 17:00 17:45 WBC RBC Hgb Hct MCV MCH MCHC RDW Std Deviation RDW Coeff of Jagruti Plt Count MPV Immature Gran % (Auto) Neut % (Auto) Lymph % (Auto) [place] % (Auto) Eos % (Auto) Baso % (Auto) Absolute Neuts (auto) Absolute Lymphs (auto) Nucleated RBC % PT INR APTT Sodium Potassium Chloride Carbon Dioxide Anion Gap BUN Creatinine Estim Creat Clear Calc Est GFR (MDRD) Af Amer Est GFR (MDRD) Non-Af BUN/Creatinine Ratio Glucose Lactic Acid 3.2 H* Calcium Total Bilirubin AST ALT Alkaline Phosphatase Troponin I 28.500 H* Total Protein Albumin Globulin Albumin/Globulin Ratio Urine Color Yellow Urine Clarity Sl. Cloudy Urine pH 5.0 Ur Specific [place] 1.020 Urine Protein 30 H Urine Glucose (UA) 50 H Urine Ketones 5 H Urine Occult Blood Negative Urine Nitrite Negative Urine Bilirubin 1 H Urine Urobilinogen 4 H Ur Leukocyte Esterase 25 H - Medical Decision Making Initial EKG obtained at [address] depression in V2. It appears that he is in third-degree heart block with a ventricular rate of 49. Repeat EKG at 1726 is read as an acute NC. He has continued ST depression in V2. It appears at this time that he has a second-degree heart block. Comparison to old EKG from September 2019 does show [address] depression in the anterior leads, but not to the degree of his present EKGs. Patient was discussed with Dr. Moscoso and EKGs were sent to him. He stated that as long as the patient did not appear to be in discomfort or distress we would handle this medically. I did make multiple attempts to contact the patient's daughter but could not reach her. I did leave a message for her to call back. Upon completion of lab work with the significant elevation in troponin I did speak Dr. Moscoso again. He did recommend heparin bolus and drip. I spoken with hospitalist who will see the patient for admission. Addendum: Patient's daughter did call back just prior to the patient going upstairs. I did review his current condition with her. Daughter does confirm that the patient is DNR comfort care arrest. He would not want CPR or ventilator. She is okay with heart cath and further testing up to the point where he would require CPR or ventilator. ED Disposition - Plan for ED Patient: Disposition: Acute Care Hospital [facility] Diagnosis: NSTEMI (non-ST elevated myocardial infarction) Referrals: Xu Diaz MD [Primary Care Provider] -
[2020-05-06 17:18] LABS: Absolute Lymphocyte Count 1.26 X10^3/uL (0.83-4.51); Basophil# 0.05 X10^3/uL; Basophil% 0.5 % (0-1); Eosinophil# 0.03 X10^3/uL; Eosinophils% 0.3 % (0-5); Hematocrit 42.8 % (40-54); Hemoglobin 13.6 g/dL (13.0-16.5); Lymphocyte # 1.26 X10^3/ul (4.0); Lymphocyte % 12.3 % (19-41); Mean Corp Hgb Conc 31.8 g/dL (32-36); Mean Corpuscular Hgb 29.8 pg (27.0-32.0); Mean Corpuscular Volume 93.9 fL (80-94); Mean Platelet Vol. 10.6 fl (6.2-12.0); Monocyte# 0.83 X10^3/uL; Monocyte% 8.1 % (0-10); NRBC Flagged by Analyzer 0 % (0-5); Neutrophil # 7.96 X10^3/uL (2.7-7.7); Neutrophil % 77.9 % (47-70); Platelet Count 180 K/mm3 (150-450); RBC Distribution Width CV 17.7 % (11.6-14.6); RBC Distribution Width SD 61.7 fl (35.1-43.9); Red Blood Count 4.56 M/mm3 (4.6-6.2); White Blood Count 10.2 K/mm3 (4.4-11.0)
--- NOTE | 2020-05-06 17:37 | EKG12_ITS ---
Test Reason : EKG CHANGE Blood Pressure : / mmHG Vent. Rate : 037 BPM Atrial Rate : 085 BPM P-R Int : 000 ms QRS Dur : 116 ms QT Int : 594 ms P-R-T Axes : 058 -03 117 degrees QTc Int : 466 ms Sinus rhythm with complete heart block and Junctional bradycardia Low voltage QRS Inferior infarct , possibly acute Marked ST abnormality, possible septal subendocardial injury Consider right ventricular involvement in acute inferior infarct Abnormal ECG When compared with ECG of 06-MAY-2020 17:26, MANUAL COMPARISON REQUIRED, DATA IS UNCONFIRMED Confirmed by JENNY GOMES, BRIAN ([id number]), publication editor SUSANNA STILES ([id number]) on 05/14/2020 11:05:29 AM Referred By: Isidro Cardoso Confirmed By:BRIAN ALVARADO MD
[2020-05-06 17:41] LABS: ALB/GLOB Ratio 0.5 RATIO (0.9-2.4); AST(SGOT) 127 U/L (15-37); Alanine Aminotransfer ALT/SGPT 152 U/L (16-61); Albumin, Serum 2.6 g/dL (3.2-5.0); Alkaline Phosphatase 118 U/L (45-117); Anion Gap 11 (5-15); BUN 50 mg/dL (7-18); BUN/Creat Ratio 29.6 RATIO (10-20); Calcium,Total 8.8 mg/dL (8.5-10.1); Chloride 108 mmol/L (98-107); Creatinine, Serum 1.69 mg/dL (0.70-1.30); EST Glomerular Filtration Rate 43 mL/min (>60); Est Glom Filt Rate - Afr Amer 52 mL/min (>60); Estimated Creatinine Clearance 45.28 ml/min; Globulin 5.2 g/dL (2.2-4.2); Glucose 314 mg/dL (74-106); Potassium 4.5 mmol/L (3.5-5.1); Protein, Total 7.8 g/dL (6.4-8.2); Sodium Level 141 mmol/L (136-145)
--- NOTE | 2020-05-06 17:44 | RAD_ITS ---
STUDY: X-RAY CHEST REASON FOR EXAM: Male, 70 years old. Acute shortness of breath, low O2 sats TECHNIQUE: Single AP portable view of the chest. COMPARISON: 09/28/2019 FINDINGS: EKG leads overlie the chest. Stable appearance of a right-sided [employer] shunt tube There are interstitial changes of the lungs. There is no demonstrated pleural abnormality. Normal size heart. Normal mediastinum and grace. Normal visualized pulmonary arteries. Normal visualized aortic arch and descending thoracic aorta. Normal visualized thoracic spine. Normal visualized ribs, clavicles, and shoulders. There is no demonstrated abnormality of the visualized soft tissue structures of the upper abdomen. RAD/Chest 1 View (Portable) IMPRESSION: Chronic interstitial changes in both lung pa bilaterally superimposed acute pulmonary process Electronically Signed: Chris Celestin MD at 18:22 EDT , Service support ,
[2020-05-06 17:51] LABS: International Normalized Ratio 1.2; Prothrombin Time (Protime)PT. 14.3 SECONDS (11.7-14.9)
[2020-05-06 17:52] LABS: Partial Thromboplast Time 30.2 Seconds (24.1-36.2)
[2020-05-06 17:53] LABS: Bacteria 0 SEEN /hpf (None Seen); Mucous, Urine 0 SEEN /hpf (<or=2+); Red Blood Cells-Urine 0 SEEN /hpf (0-5)
[2020-05-06 18:18] LABS: Lactic Acid 3.2 mmol/L (0.4-1.9)
[2020-05-06 18:34] LABS: Color, Urine Yellow (Yellow); Glucose, Dipstick 50 mg/dl (Normal); Ketone-Dipstick 5 mg/dl (Negative); Leukocyte Esterase-Dipstick 25 /ul (Negative); Nitrite-Dipstick Negative (Negative); Occult Blood-Urine Negative /ul (Negative); Protein-Dipstick 30 mg/dl (Negative); Urine Clarity Sl. Cloudy (Clear); Urine Urobilinogen 4 mg/dl (Normal)
[2020-05-06 18:51] LABS: Urine Bilirubin Dipstick 1 mg/dL (Negative)
[2020-05-06] MEDS: Heparin Injection (Vial) 5,000 UNIT/ML VIAL 7500 UNIT IV (18:53)
[2020-05-06] MEDS: HEPARIN/D5w 25,000 UNITS 25,000 UNITS/250 ML IV.SOLN. 14 UNITS IV (18:54)
[2020-05-06 19:09] LABS: Amorphous Sediment 1+ URATE; Squamous Epithelial Cells - UA 0-5 SEEN /hpf (0-5); White Blood Cells 0-5 SEEN /hpf (0-5)
--- NOTE | 2020-05-06 19:15 | HP.PCM_ITS ---
Problem List (1) HTN (hypertension) Status: Chronic Qualifiers: Hypertension type: essential hypertension Qualified Code(s): I10 - Essential (primary) hypertension (2) HLD (hyperlipidemia) Status: Chronic Qualifiers: Hyperlipidemia type: unspecified Qualified Code(s): E78.5 - Hyperlipidemia, unspecified (3) Anxiety and depression Status: Chronic (4) NSTEMI (non-ST elevated myocardial infarction) Status: Acute (5) Anemia of chronic disease Status: Chronic (6) AAA (abdominal aortic aneurysm) Status: Chronic Qualifiers: Presence of rupture: without rupture Qualified Code(s): I71.4 - Abdominal aortic aneurysm, without rupture (7) S/P [employer] shunt Status: Chronic (8) CVA (cerebral vascular accident) Status: Chronic Qualifiers: CVA mechanism: unspecified Qualified Code(s): I63.9 - Cerebral infarction, unspecified History of Present Illness Date of Admission: 05/06/20 Chief Complaint: shortness of breath The patient is a 70 year old patient with a significant past medical history of anemia of chronic disease, anxiety depression, CVA, hydrocephalus status post [employer]TE[employer] shunt, hypertension presents the emergency room from the [facility] due to acute shortness of breath. The patient was seen and treated last Wednesday and diagnosed with pneumonia and placed on Augmentin. The patient is a poor historian and noncommunicative at this point I am informed by the ER physician that the patient is DNR Comfort Care arrest. Initial laboratory findings show white blood cell count of 10.2, hemoglobin 13.6, hematocrit 42.8, platelets 180, sodium 141, potassium 4.5, chloride 108, bicarb 22, BUN 50, creatinine 1.69, blood sugar 314, lactic acid 3.2, troponin 28.5, INR 1.2. EKG shows ST depressions in anterior leads especially V2. Chest x-ray reveals chronic interstitial changes bilaterally with superimposed acute pulmonary process occurring. At the time of my assessment the COVID evaluation was pending but is low probability as there have been no cases to date at the [facility]. Cardiology was consulted by ER physician and decision was made to place patient on a heparin drip and due to the nature of the markedly elevated troponin will place patient in the ICU overnight for further cardiac monitoring and assessment. Attempts at contacting the daughter were unsuccessful today. 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 needing contact precautions Stage 1 decubitus ulcer (Chronic) Allergies No Known Allergies Allergy (Verified 09/27/19 12:17) Home Medications: Ambulatory Orders Medication Instructions Recorded Polyvinyl Alcohol [Artificial 2 drop EACHEYE TID 11/25/16 Tears] Acetaminophen [Acetaminophen 8 650 mg PO Q4H PRN PRN 02/16/17 Hour] Meclizine HCl [Antivert] 12.5 mg PO DAILY 02/16/17 Amlodipine [Norvasc] 5 mg PO DAILY 09/27/19 Aspirin 81 mg PO DAILY 09/27/19 Finasteride 5 mg PO DAILY 09/27/19 Melatonin 3 mg PO QHS 09/27/19 Polyethylene Glycol 3350 [Miralax] 17 gm PO DAILY 09/27/19 Quetiapine Fumarate [Seroquel] 25 mg PO QHS 09/27/19 Sennosides/Docusate Sodium 2 tab PO BID 09/27/19 [Senexon-S Tablet] Amoxicillin/Potassium Clav 1 tab PO BID 05/06/20 [Augmentin 875-125 Tablet] Carbamide Peroxide [Ear Wax 5 drp EACH EAR BID 05/06/20 Removal] Lactobacillus Acidophilus 1 cap PO BID 05/06/20 [Acidophilus] Metformin HCl 500 mg PO BID 05/06/20 Surgical History: - - Hx prior peg tube place placement and removal, [employer] 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 Psychiatric History: Anxiety, Depression Lives: [facility] Smoking Status: Former smoker - *Family History Paternal History Items: Heart Disease, Hypertension Maternal History Items: Heart Disease Review of Systems Unable to obtain accurate/complete ROS d/t: patient unable to communicate VTE Information - Inpt Only VTE Present on Admission: No VTE Mechan Device Prophylaxis: None VTE Pharm Prophylaxis ordered?: Yes Patient Problems: Active and Suspected Problems NSTEMI (non-ST elevated myocardial infarction) (Acute) - Physical Exam Vitals/I&O's: Vital Signs Temp Pulse Resp BP Pulse Ox 98.3 F 78 26 H 103/88 H 98 05/06/20 16:37 05/06/20 18:03 05/06/20 18:03 05/06/20 18:03 05/06/20 18:03 Oxygen Flow Rate (L/min) 2 Oxygen Delivery Method Nasal Cannula Weight: 218 lb 0.595 oz Body Mass Index (BMI) 29.5 Finger Stick Blood Glucose 151 General: Alert, Non-Cooperative HEENT: Atraumatic, Normocephalic Neck: Supple Lungs: Clear to auscultation, Normal air movement Cardiovascular: Regular rate, Normal S1, Normal S2, No murmurs Abdomen: Bowel Sounds Present, Soft Extremities: No edema Skin: No rashes Musculoskeletal: No Tenderness to Palpation of Joints or Extremities Neurological: - - maintains eyes open when spoken to but does not follow commands Psych/Mental Status: Normal Affect, Appropriate Laboratory Results 05/06/20 17:00: WBC 10.2, RBC 4.56 L, Hgb 13.6, Hct 42.8, MCV 93.9, MCH 29.8, MCHC 31.8 L, RDW Std Deviation 61.7 H, RDW Coeff of Jagruti 17.7 H, Plt Count 180, MPV 10.6, Immature Gran % (Auto) 0.900, Neut % (Auto) 77.9 H, Lymph % (Auto) 12.3 L, [place] % (Auto) 8.1, Eos % (Auto) 0.3, Baso % (Auto) 0.5, Absolute Neuts (auto) 8.0 H, Absolute Lymphs (auto) 1.26, Nucleated RBC % 0 05/06/20 17:00: PT 14.3, INR 1.2, APTT 30.2 05/06/20 17:00: Sodium 141, Potassium 4.5, Chloride 108 H, Carbon Dioxide 22.0, Anion Gap 11, BUN 50 H, Creatinine 1.69 H, Estim Creat Clear Calc 45.28, Est GFR (MDRD) Af Amer 52 L, Est GFR (MDRD) Non-Af 43 L, BUN/Creatinine Ratio 29.6 H, Glucose 314 H, Calcium 8.8, Total Bilirubin 0.50, AST 127 H, ALT 152 H, Alkaline Phosphatase 118 H, Total Protein 7.8, Albumin 2.6 L, Globulin 5.2 H, Albumin/Globulin Ratio 0.5 L 05/06/20 17:00: Lactic Acid 3.2 H* 05/06/20 17:00: Troponin I 28.500 H* 05/06/20 17:05: COVID-19 (GENNARO) Pending 05/06/20 17:45: Urine Color Yellow, Urine Clarity Sl. Cloudy, Urine pH 5.0, Ur Specific [place] 1.020, Urine Protein 30 H, Urine Glucose (UA) 50 H, Urine Ketones 5 H, Urine Occult Blood Negative, Urine Nitrite Negative, Urine Bilirubin 1 H, Urine Urobilinogen 4 H, Ur Leukocyte Esterase 25 H, Urine RBC 0 SEEN, Urine WBC 0-5 SEEN, Ur Squamous Epith Cells 0-5 SEEN, Amorphous Sediment 1+ URATE, Urine Bacteria 0 SEEN, Urine Mucus 0 SEEN 05/06/20 18:56: APTT Pending Current Medications Heparin Sodium (Porcine) (Heparin Na) 0 unit IV UD PRN; Protocol Sodium Chloride () 1,000 mls @ 150 mls/hr IV .[id number] [facility] Sodium Chloride () 1,000 mls @ 999 mls/hr IV .Q1H1M ONE Stop: 05/06/20 19:19 Heparin Sodium/Dextrose () 25,000 units in 250 mls @ 14 mls/hr IV .[id number] [facility]; Protocol Last Admin: 05/06/20 18:54 Dose: 1,400 units/hr, 14 mls/hr Documented by: Assessment/Plan All Active Problems Septic shock (Acute) Complicated UTI (urinary tract infection) (Acute) Urinary retention (Acute) Hyperosmolar hyperglycemic coma due to diabetes mellitus without ketoacidosis (Acute) NSTEMI (non-ST elevated myocardial infarction) (Acute) Severe sepsis (Acute) UTI (urinary tract infection) (Acute) Acute kidney injury (Acute) Aspiration into airway (Acute) UTI (urinary tract infection) (Acute) Respiratory failure (Acute) Chronic Problems HTN (hypertension) (Chronic) HLD (hyperlipidemia) (Chronic) Anxiety and depression (Chronic) Anemia of chronic disease (Chronic) Anemia (Chronic) AAA (abdominal aortic aneurysm) (Chronic) Hydrocephalus (Chronic) dvt in right upper arm (Chronic) S/P [employer] shunt (Chronic) CVA (cerebral vascular accident) (Chronic) 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 Non-STEMI?elevated troponin with ST depression?Place patient in ICU, consult cardiology, heparin drip by weight protocol?we will order aspirin, morphine and nitroglycerin should the patient indicate further pain. Make n.p.o. at midnight start IV fluids normal saline at 100 cc/h, repeat BMP in the a.m., cycle cardiac enzymes 2. Recent pneumonia/elevated lactic acid?continue antibiotic coverage for treatment of pneumonia and repeat lactic acid per protocol 3. Hypertension?hold p.o. medications monitor blood pressure for now we will use as needed hydralazine should it be necessary 4. Hyperlipidemia?continue statin if patient is able to take p.o. safely 5. DVT prophylaxis?patient is on heparin drip by weight protocol 6. Patient is DNR Comfort Care arrest Inpatient E&M: [id number] Init Hosp L3
[2020-05-06 19:58] LABS: Probe Check PASS; Specimen Processing Control PASS
[2020-05-06 21:08] LABS: Reflex Lactate? Y
[2020-05-06] MEDS: 0.9% Normal Saline 1,000 ML 999 ML IV (21:31)
--- NOTE | 2020-05-06 21:45 | ED.RN ---
PT [facility] AND [facility] UPDATED ON PLAN OF CARE
[2020-05-06 22:08] LABS: Lactic Acid 2.9 mmol/L (0.4-1.9)
[2020-05-06] MEDS: 0.9% Normal Saline 1,000 ML 150 ML IV (22:18)
[2020-05-06] MEDS: Insulin Lispro 100 UNIT/ML INSULN.PEN SC (22:59)
--- NOTE | 2020-05-06 23:55 | NURSING ---
Called and spoke with daughter Trixie. Explained current situation of her father and that he is not doing well. 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 Will medically manage and keep pt. comfortable at this time. Will call daughter back if pt. deteriorates any further. All questions answered.
[2020-05-07] VITALS (18 sets, daily range): BP systolic 88–117; BP diastolic 66–105; PULSE 30–84; RESP 16–76; TEMP 35.8–36.8; O2SAT 89–99
--- NOTE | 2020-05-07 00:16 | EKG12_ITS ---
Test Reason : SOB Blood Pressure : / mmHG Vent. Rate : 049 BPM Atrial Rate : 049 BPM P-R Int : 400 ms QRS Dur : 100 ms QT Int : 500 ms P-R-T Axes : 070 206 057 degrees QTc Int : 451 ms Sinus bradycardia with 1st degree A-V block Right ventricular hypertrophy with repolarization abnormality Inferior infarct , age undetermined Marked ST abnormality, possible septal subendocardial injury Abnormal ECG Confirmed by RACHID GOMES, MARY ([id number]), deputy editor in chief SUSANNA STILES ([id number]) on 05/13/2020 9:52:09 AM Referred By: Isidro Cardoso Confirmed By:SYDNEY RASHID MD
[2020-05-07 00:26] LABS: Bedside Glucose 244 mg/dL (70-110)
[2020-05-07] MEDS: Morphine 2 MG/ML Syringe IV ×2 (01:48→05:30)
[2020-05-07] MEDS: 0.9% Saline Lock 10 ML Syringe IV ×2 (01:51→05:31)
[2020-05-07 02:09] LABS: Partial Thromboplast Time 108.4 Seconds (24.1-36.2)
[2020-05-07 04:20] LABS: Absolute Lymphocyte Count 1.48 X10^3/uL (0.83-4.51); Absolute Neutrophil Count 6.7 X10^3/uL (2.0-7.7); Basophil# 0.04 X10^3/uL; Basophil% 0.4 % (0-1); Eosinophils% 1.1 % (0-5); Hematocrit 38.8 % (40-54); Hemoglobin 12.4 g/dL (13.0-16.5); Lymphocyte # 1.48 X10^3/ul (4.0); Lymphocyte % 16.2 % (19-41); Mean Corpuscular Hgb 29.8 pg (27.0-32.0); Mean Corpuscular Volume 93.3 fL (80-94); Mean Platelet Vol. 10.7 fl (6.2-12.0); Monocyte# 0.69 X10^3/uL; Monocyte% 7.6 % (0-10); NRBC Flagged by Analyzer 0 % (0-5); Neutrophil # 6.71 X10^3/uL (2.7-7.7); Neutrophil % 73.7 % (47-70); Platelet Count 153 K/mm3 (150-450); RBC Distribution Width SD 60.3 fl (35.1-43.9); Red Blood Count 4.16 M/mm3 (4.6-6.2); White Blood Count 9.1 K/mm3 (4.4-11.0)
[2020-05-07 04:30] LABS: Anion Gap 8 (5-15); BUN 41 mg/dL (7-18); BUN/Creat Ratio 33.6 RATIO (10-20); Calcium,Total 7.8 mg/dL (8.5-10.1); Chloride 112 mmol/L (98-107); Creatinine, Serum 1.22 mg/dL (0.70-1.30); EST Glomerular Filtration Rate 63 mL/min (>60); Est Glom Filt Rate - Afr Amer 76 mL/min (>60); Estimated Creatinine Clearance 62.72 ml/min; Glucose 232 mg/dL (74-106); Magnesium 2.8 mg/dL (1.6-2.6); Phosphorus 3.4 mg/dL (2.5-4.9); Potassium 4.4 mmol/L (3.5-5.1); Sodium Level 143 mmol/L (136-145)
[2020-05-07 04:46] LABS: International Normalized Ratio 1.3; Prothrombin Time (Protime)PT. 15.5 SECONDS (11.7-14.9)
[2020-05-07] MEDS: 0.9% Normal Saline 1,000 ML 150 ML IV (05:30)
[2020-05-07] MEDS: Insulin Lispro 100 UNIT/ML INSULN.PEN SC (05:32)
[2020-05-07 06:30] LABS: Bedside Glucose 204 mg/dL (70-110)
--- NOTE | 2020-05-07 07:23 | PN_ITS ---
Patient Problems: Active and Suspected Problems NSTEMI (non-ST elevated myocardial infarction) (Acute) Vitals/I&O's: Vital Signs Temp Pulse Resp BP Pulse Ox 97.1 F L 78 30 H 89/66 L 93 05/07/20 04:00 05/07/20 06:00 05/07/20 06:00 05/07/20 06:00 05/07/20 06:00 Oxygen Flow Rate (L/min) 2 Oxygen Delivery Method Nasal Cannula Weight: 203 lb 0.732 oz Body Mass Index (BMI) 29.5 Finger Stick Blood Glucose 151 Intake and Output for Last 24 Hours 05/05/20 05/06/20 05/07/20 23:59 23:59 23:59 Intake Total 1070.07 / 1070.07 997.13 / 997.13 Output Total 0 / 0 Balance 1070.07 / 1070.07 997.13 / 997.13 Laboratory Results 05/06/20 17:00: WBC 10.2, RBC 4.56 L, Hgb 13.6, Hct 42.8, MCV 93.9, MCH 29.8, MCHC 31.8 L, RDW Std Deviation 61.7 H, RDW Coeff of Jagruti 17.7 H, Plt Count 180, MPV 10.6, Immature Gran % (Auto) 0.900, Neut % (Auto) 77.9 H, Lymph % (Auto) 12.3 L, [place] % (Auto) 8.1, Eos % (Auto) 0.3, Baso % (Auto) 0.5, Absolute Neuts (auto) 8.0 H, Absolute Lymphs (auto) 1.26, Nucleated RBC % 0 05/06/20 17:00: PT 14.3, INR 1.2, APTT 30.2 05/06/20 17:00: Sodium 141, Potassium 4.5, Chloride 108 H, Carbon Dioxide 22.0, Anion Gap 11, BUN 50 H, Creatinine 1.69 H, Estim Creat Clear Calc 45.28, Est GFR (MDRD) Af Amer 52 L, Est GFR (MDRD) Non-Af 43 L, BUN/Creatinine Ratio 29.6 H, Glucose 314 H, Calcium 8.8, Total Bilirubin 0.50, AST 127 H, ALT 152 H, Alkaline Phosphatase 118 H, Total Protein 7.8, Albumin 2.6 L, Globulin 5.2 H, Albumin/Globulin Ratio 0.5 L 05/06/20 17:00: Lactic Acid 3.2 H* 05/06/20 17:00: Troponin I 28.500 H* 05/06/20 17:05: COVID-19 (GENNARO) Negative 05/06/20 17:45: Urine Color Yellow, Urine Clarity Sl. Cloudy, Urine pH 5.0, Ur Specific [place] 1.020, Urine Protein 30 H, Urine Glucose (UA) 50 H, Urine Ketones 5 H, Urine Occult Blood Negative, Urine Nitrite Negative, Urine Bilirubin 1 H, Urine Urobilinogen 4 H, Ur Leukocyte Esterase 25 H, Urine RBC 0 SEEN, Urine WBC 0-5 SEEN, Ur Squamous Epith Cells 0-5 SEEN, Amorphous Sediment 1+ URATE, Urine Bacteria 0 SEEN, Urine Mucus 0 SEEN 05/06/20 18:56: APTT Cancelled 05/06/20 21:25: Lactic Acid 2.9 H* 05/06/20 22:35: POC Glucose 244 H 05/06/20 22:50: Troponin I 30.200 H* 05/07/20 01:35: Troponin I 31.000 H* 05/07/20 01:35: APTT 108.4 H* 05/07/20 01:35: PT 15.5 H, INR 1.3 05/07/20 04:05: WBC 9.1, RBC 4.16 L, Hgb 12.4 L, Hct 38.8 L, MCV 93.3, MCH 29.8, MCHC 32.0, RDW Std Deviation 60.3 H, RDW Coeff of Jagruti 18.0 H, Plt Count 153, MPV 10.7, Immature Gran % (Auto) 1.000 H, Neut % (Auto) 73.7 H, Lymph % (Auto) 16.2 L, [place] % (Auto) 7.6, Eos % (Auto) 1.1, Baso % (Auto) 0.4, Absolute Neuts (auto) 6.7, Absolute Lymphs (auto) 1.48, Nucleated RBC % 0 05/07/20 04:05: PT Cancelled, INR Cancelled 05/07/20 04:05: Sodium 143, Potassium 4.4, Chloride 112 H, Carbon Dioxide 23.0, Anion Gap 8, BUN 41 H, Creatinine 1.22, Estim Creat Clear Calc 62.72, Est GFR (MDRD) Af Amer 76, Est GFR (MDRD) Non-Af 63, BUN/Creatinine Ratio 33.6 H, Glucose 232 H, Calcium 7.8 L, Phosphorus 3.4, Magnesium 2.8 H 05/07/20 05:27: POC Glucose 204 H Current Medications Artificial Tears (Tears Naturale, Artificial Tears) 2 drop OPHTHALMIC TID [facility] Last Admin: 05/07/20 05:32 Dose: 2 drop Documented by: [facility], Baby) [facility] Dextrose (D50w Syringe) 0 gm IV X1 PRN; Protocol PRN Reason: Hypoglycemia Glucagon () 1 mg IM .X1 PRN PRN Reason: Hypoglycemia Heparin Sodium (Porcine) (Heparin Na) 0 unit IV UD PRN; Protocol Sodium Chloride () 1,000 mls @ 150 mls/hr IV .Q6H40M [facility] Last Admin: 05/07/20 05:30 Dose: 150 mls/hr Documented by: Heparin Sodium/Dextrose () 25,000 units in 250 mls @ 14 mls/hr IV .[id number] [facility]; Protocol Last Titration: 05/07/20 04:09 Dose: 1,100 units/hr, 11 mls/hr Documented by: Sodium Chloride () 250 mls @ 15 mls/hr IV .[id number] PRN PRN Reason: Saline Flush Sodium Chloride () 250 mls @ 15 mls/hr IV .[id number] PRN PRN Reason: Additional IVPB Infusion Insulin Human Lispro (Humalog Kwikpen (Bkc)) 0 unit SC Q6 [facility]; Protocol Last Admin: 05/07/20 05:32 Dose: 1 units Documented by: Lactobacillus Acidophilus (Acidophilus) 1 tablet PO BID [facility] Last Admin: 05/06/20 22:59 Dose: Not Given Documented by: Morphine Sulfate () 2 mg IV Q3H PRN PRN PRN Reason: Pain Score 6-10/10 Last Admin: 05/07/20 05:30 Dose: 2 mg Documented by: Nitroglycerin (Nitrostat) 0.4 mg SUBLINGUAL Q5M PRN PRN Reason: CARDIAC/CHEST PAIN Ondansetron HCl (Zofran) 4 mg IV Q8H PRN PRN PRN Reason: NAUSEA/VOMITING Sodium Chloride () 10 - 40 ml IV UD PRN PRN Reason: SALINE FLUSH Last Admin: 05/07/20 05:31 Dose: 10 ml Documented by: DAVID Vital Signs/Narrative: Vital Signs Temp Pulse Resp BP Pulse Ox 05/07/20 06:00 78 30 H 89/66 L 93 05/07/20 05:00 37 L 16 89/68 L 99 05/07/20 04:00 97.1 F L 76 25 H 95/77 99 Medical Necessity - Tobacco Use Smoking Status: Former smoker Assessment/Plan All Active Problems Septic shock (Acute) Complicated UTI (urinary tract infection) (Acute) Urinary retention (Acute) Hyperosmolar hyperglycemic coma due to diabetes mellitus without ketoacidosis (Acute) NSTEMI (non-ST elevated myocardial infarction) (Acute) Severe sepsis (Acute) UTI (urinary tract infection) (Acute) Acute kidney injury (Acute) Aspiration into airway (Acute) UTI (urinary tract infection) (Acute) Respiratory failure (Acute)
--- NOTE | 2020-05-07 07:41 | CON.PCM_ITS ---
Reason for Consult Date of Consultation: 05/07/20 Reason for Consultation: Severe sepsis History of Present Illness: The patient is a 70-year-old male, with a history as outlined below, who presented from his [facility] facility with tachypnea and hypoxemia. The patient had recently been diagnosed with presumptive aspiration pneumonia and was being treated with Augmentin. 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 The patient currently resides at [facility]. On presentation to the emergency department, the patient was noted to be afebrile and was hemodynamically stable. The patient was maintaining appropriate oxygen saturations on room air. Laboratory evaluation revealed a normal white blood cell count. Chemistry profile was notable for acute kidney injury with a creatinine of 1.69. Lactate was elevated to 3.2. AST and ALT were increased to 127 and 152, respectively. Initial troponin was elevated to 28.5. COVID testing was negative. Chest x-ray revealed only chronic interstitial changes, similar to prior chest imaging studies. The patient was subsequently admitted to the medical intensive care unit for further management. 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 needing contact precautions Stage 1 decubitus ulcer (Chronic) Allergies No Known Allergies Allergy (Verified 09/27/19 12:17) Home Medications: Ambulatory Orders Medication Instructions Recorded Polyvinyl Alcohol [Artificial 2 drop EACHEYE TID 11/25/16 Tears] Acetaminophen [Acetaminophen 8 650 mg PO Q4H PRN PRN 02/16/17 Hour] Meclizine HCl [Antivert] 12.5 mg PO DAILY 02/16/17 Amlodipine [Norvasc] 5 mg PO DAILY 09/27/19 Aspirin 81 mg PO DAILY 09/27/19 Finasteride 5 mg PO DAILY 11/06/19 Melatonin 3 mg PO QHS 09/27/19 Polyethylene Glycol 3350 [Miralax] 17 gm PO DAILY 09/27/19 Quetiapine Fumarate [Seroquel] 25 mg PO QHS 09/27/19 Sennosides/Docusate Sodium 2 tab PO BID 09/27/19 [Senexon-S Tablet] Amoxicillin/Potassium Clav 1 tab PO BID 05/06/20 [Augmentin 875-125 Tablet] Carbamide Peroxide [Ear Wax 5 drp EACH EAR BID 05/06/20 Removal] Lactobacillus Acidophilus 1 cap PO BID 05/06/20 [Acidophilus] Metformin HCl 500 mg PO BID 05/06/20 Surgical History: - - Hx prior peg tube place placement and removal, vp medical 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 Psychiatric History: Anxiety, Depression Lives: [place]way Smoking Status: Former smoker - *Family History Paternal History Items: Heart Disease, Hypertension Maternal History Items: Heart Disease Review of Systems Unable to obtain accurate/complete ROS d/t: Due to baseline neurological status with limited verbalization. Objective: The patient's most recent lab work, culture data and imaging studies have all been personally reviewed. Strep and urine Legionella antigens were negative. Blood and urine cultures are pending. - Physical Exam Vitals/I&O's: Vital Signs Temp Pulse Resp BP Pulse Ox 97.1 F L 78 30 H 89/66 L 93 05/07/20 04:00 05/07/20 06:00 05/07/20 06:00 05/07/20 06:00 05/07/20 06:00 Oxygen Flow Rate (L/min) 2 Oxygen Delivery Method Nasal Cannula Weight: 203 lb 0.732 oz Body Mass Index (BMI) 29.5 Finger Stick Blood Glucose 151 Intake and Output for Last 24 Hours 05/05/20 05/06/20 05/07/20 23:59 23:59 23:59 Intake Total 1070.07 / 1070.07 997.13 / 997.13 Output Total 0 / 0 Balance 1070.07 / 1070.07 997.13 / 997.13 General: Alert, No apparent distress, - - Appears to have difficulty verbalizing answers to questions HEENT: Atraumatic, Normocephalic Oral: No Gingival or Mucosal Lesions/ Ulcerations, - - Poor dentition Neck: Supple, No Nodes, Trachea Midline Lungs: Diminished Cardiovascular: Normal S1, Normal S2, Irregular Rate Abdomen: Bowel Sounds Present, Soft, Non Tender Extremities: No clubbing, No cyanosis, No edema Skin: No breakdown Musculoskeletal: No Tenderness to Palpation of Joints or Extremities Lymphatic: No Cervical, Supraclavicular, or Inguinal Adenopathy Neurological: - - Residual neurological deficits including facial droop and some dysarthric speech Psych/Mental Status: Flat Affect Labs (Last 48 Hours) 05/06/20 05/06/20 05/06/20 17:00 17:00 17:00 WBC 10.2 RBC 4.56 L Hgb 13.6 Hct 42.8 MCV 93.9 MCH 29.8 MCHC 31.8 L RDW Std Deviation 61.7 H RDW Coeff of Jagruti 17.7 H Plt Count 180 MPV 10.6 Immature Gran % (Auto) 0.900 Neut % (Auto) 77.9 H Lymph % (Auto) 12.[address] [place] % (Auto) 8.1 Eos % (Auto) 0.3 Baso % (Auto) 0.5 Absolute Neuts (auto) 8.0 H Absolute Lymphs (auto) 1.26 Nucleated RBC % 0 PT 14.3 INR 1.2 APTT 30.2 Sodium 141 Potassium 4.5 Chloride 108 H Carbon Dioxide 22.0 Anion Gap 11 BUN 50 H Creatinine 1.69 H Estim Creat Clear Calc 45.28 Est GFR (MDRD) Af Amer 52 L Est GFR (MDRD) Non-Af 43 L BUN/Creatinine Ratio 29.6 H Glucose 314 H Lactic Acid Calcium 8.8 Phosphorus Magnesium Total Bilirubin 0.50 AST 127 H ALT 152 H Alkaline Phosphatase 118 H Troponin I Total Protein 7.8 Albumin 2.6 L Globulin 5.2 H Albumin/Globulin Ratio 0.5 L Triglycerides Cholesterol LDL Cholesterol VLDL Cholesterol HDL Cholesterol Urine Color Urine Clarity Urine pH Ur Specific [place] Urine Protein Urine Glucose (UA) Urine Ketones Urine Occult Blood Urine Nitrite Urine Bilirubin Urine Urobilinogen Ur Leukocyte Esterase Urine RBC Urine WBC Ur Squamous Epith Cells Amorphous Sediment Urine Bacteria Urine Mucus COVID-19 (GENNARO) POC Glucose 05/06/20 05/06/20 05/06/20 17:00 17:00 17:05 WBC RBC Hgb Hct MCV MCH MCHC RDW Std Deviation RDW Coeff of Jagruti Plt Count MPV Immature Gran % (Auto) Neut % (Auto) Lymph % (Auto) [place] % (Auto) Eos % (Auto) Baso % (Auto) Absolute Neuts (auto) Absolute Lymphs (auto) Nucleated RBC % PT INR APTT Sodium Potassium Chloride Carbon Dioxide Anion Gap BUN Creatinine Estim Creat Clear Calc Est GFR (MDRD) Af Amer Est GFR (MDRD) Non-Af BUN/Creatinine Ratio Glucose Lactic Acid 3.2 H* Calcium Phosphorus Magnesium Total Bilirubin AST ALT Alkaline Phosphatase Troponin I 28.500 H* Total Protein Albumin Globulin Albumin/Globulin Ratio Triglycerides Cholesterol LDL Cholesterol VLDL Cholesterol HDL Cholesterol Urine Color Urine Clarity Urine pH Ur Specific [place] Urine Protein Urine Glucose (UA) Urine Ketones Urine Occult Blood Urine Nitrite Urine Bilirubin Urine Urobilinogen Ur Leukocyte Esterase Urine RBC Urine WBC Ur Squamous Epith Cells Amorphous Sediment Urine Bacteria Urine Mucus COVID-19 (GENNARO) Negative POC Glucose 05/06/20 05/06/20 05/06/20 17:45 18:56 21:25 WBC RBC Hgb Hct MCV MCH MCHC RDW Std Deviation RDW Coeff of Jagruti Plt Count MPV Immature Gran % (Auto) Neut % (Auto) Lymph % (Auto) [place] % (Auto) Eos % (Auto) Baso % (Auto) Absolute Neuts (auto) Absolute Lymphs (auto) Nucleated RBC % PT INR APTT Cancelled Sodium Potassium Chloride Carbon Dioxide Anion Gap BUN Creatinine Estim Creat Clear Calc Est GFR (MDRD) Af Amer Est GFR (MDRD) Non-Af BUN/Creatinine Ratio Glucose Lactic Acid 2.9 H* Calcium Phosphorus Magnesium Total Bilirubin AST ALT Alkaline Phosphatase Troponin I Total Protein Albumin Globulin Albumin/Globulin Ratio Triglycerides Cholesterol LDL Cholesterol VLDL Cholesterol HDL Cholesterol Urine Color Yellow Urine Clarity Sl. Cloudy Urine pH 5.0 Ur Specific [place] 1.020 Urine Protein 30 H Urine Glucose (UA) 50 H Urine Ketones 5 H Urine Occult Blood Negative Urine Nitrite Negative Urine Bilirubin 1 H Urine Urobilinogen 4 H Ur Leukocyte Esterase 25 H Urine RBC 0 SEEN Urine WBC 0-5 SEEN Ur Squamous Epith Cells 0-5 SEEN Amorphous Sediment 1+ URATE Urine Bacteria 0 SEEN Urine Mucus 0 SEEN COVID-19 (GENNARO) POC Glucose 05/06/20 05/06/20 05/07/20 22:35 22:50 01:35 WBC RBC Hgb Hct MCV MCH MCHC RDW Std Deviation RDW Coeff of Jagruti Plt Count MPV Immature Gran % (Auto) Neut % (Auto) Lymph % (Auto) [place] % (Auto) Eos % (Auto) Baso % (Auto) Absolute Neuts (auto) Absolute Lymphs (auto) Nucleated RBC % PT INR APTT Sodium Potassium Chloride Carbon Dioxide Anion Gap BUN Creatinine Estim Creat Clear Calc Est GFR (MDRD) Af Amer Est GFR (MDRD) Non-Af BUN/Creatinine Ratio Glucose Lactic Acid Calcium Phosphorus Magnesium Total Bilirubin AST ALT Alkaline Phosphatase Troponin I 30.200 H* 31.000 H* Total Protein Albumin Globulin Albumin/Globulin Ratio Triglycerides Cholesterol LDL Cholesterol VLDL Cholesterol HDL Cholesterol Urine Color Urine Clarity Urine pH Ur Specific [place] Urine Protein Urine Glucose (UA) Urine Ketones Urine Occult Blood Urine Nitrite Urine Bilirubin Urine Urobilinogen Ur Leukocyte Esterase Urine RBC Urine WBC Ur Squamous Epith Cells Amorphous Sediment Urine Bacteria Urine Mucus COVID-19 (GENNARO) POC Glucose 244 H 05/07/20 05/07/20 05/07/20 01:35 01:35 04:05 WBC 9.1 RBC 4.16 L Hgb 12.4 L Hct 38.8 L MCV 93.3 MCH 29.8 MCHC 32.0 RDW Std Deviation 60.3 H RDW Coeff of Jagruti 18.0 H Plt Count 153 MPV 10.7 Immature Gran % (Auto) 1.000 H Neut % (Auto) 73.7 H Lymph % (Auto) 16.[address] [place] % (Auto) 7.6 Eos % (Auto) 1.1 Baso % (Auto) 0.4 Absolute Neuts (auto) 6.7 Absolute Lymphs (auto) 1.48 Nucleated RBC % 0 PT 15.5 H INR 1.3 APTT 108.4 H* Sodium Potassium Chloride Carbon Dioxide Anion Gap BUN Creatinine Estim Creat Clear Calc Est GFR (MDRD) Af Amer Est GFR (MDRD) Non-Af BUN/Creatinine Ratio Glucose Lactic Acid Calcium Phosphorus Magnesium Total Bilirubin AST ALT Alkaline Phosphatase Troponin I Total Protein Albumin Globulin Albumin/Globulin Ratio Triglycerides Cholesterol LDL Cholesterol VLDL Cholesterol HDL Cholesterol Urine Color Urine Clarity Urine pH Ur Specific [place] Urine Protein Urine Glucose (UA) Urine Ketones Urine Occult Blood Urine Nitrite Urine Bilirubin Urine Urobilinogen Ur Leukocyte Esterase Urine RBC Urine WBC Ur Squamous Epith Cells Amorphous Sediment Urine Bacteria Urine Mucus COVID-19 (GENNARO) POC Glucose 05/07/20 05/07/20 05/07/20 04:05 04:05 04:12 WBC RBC Hgb Hct MCV MCH MCHC RDW Std Deviation RDW Coeff of Jagruti Plt Count MPV Immature Gran % (Auto) Neut % (Auto) Lymph % (Auto) [place] % (Auto) Eos % (Auto) Baso % (Auto) Absolute Neuts (auto) Absolute Lymphs (auto) Nucleated RBC % PT Cancelled INR Cancelled APTT Sodium 143 Potassium 4.4 Chloride 112 H Carbon Dioxide 23.0 Anion Gap 8 BUN 41 H Creatinine 1.22 Estim Creat Clear Calc 62.72 Est GFR (MDRD) Af Amer 76 Est GFR (MDRD) Non-Af 63 BUN/Creatinine Ratio 33.6 H Glucose 232 H Lactic Acid Calcium 7.8 L Phosphorus 3.4 Magnesium 2.8 H Total Bilirubin AST ALT Alkaline Phosphatase Troponin I Total Protein Albumin Globulin Albumin/Globulin Ratio Triglycerides 238 H Cholesterol 128 LDL Cholesterol 64 VLDL Cholesterol 48 H HDL Cholesterol 16 L Urine Color Urine Clarity Urine pH Ur Specific [place] Urine Protein Urine Glucose (UA) Urine Ketones Urine Occult Blood Urine Nitrite Urine Bilirubin Urine Urobilinogen Ur Leukocyte Esterase Urine RBC Urine WBC Ur Squamous Epith Cells Amorphous Sediment Urine Bacteria Urine Mucus COVID-19 (GENNARO) POC Glucose 05/07/20 05:27 WBC RBC Hgb Hct MCV MCH MCHC RDW Std Deviation RDW Coeff of Jagruti Plt Count MPV Immature Gran % (Auto) Neut % (Auto) Lymph % (Auto) [place] % (Auto) Eos % (Auto) Baso % (Auto) Absolute Neuts (auto) Absolute Lymphs (auto) Nucleated RBC % PT INR APTT Sodium Potassium Chloride Carbon Dioxide Anion Gap BUN Creatinine Estim Creat Clear Calc Est GFR (MDRD) Af Amer Est GFR (MDRD) Non-Af BUN/Creatinine Ratio Glucose Lactic Acid Calcium Phosphorus Magnesium Total Bilirubin AST ALT Alkaline Phosphatase Troponin I Total Protein Albumin Globulin Albumin/Globulin Ratio Triglycerides Cholesterol LDL Cholesterol VLDL Cholesterol HDL Cholesterol Urine Color Urine Clarity Urine pH Ur Specific [place] Urine Protein Urine Glucose (UA) Urine Ketones Urine Occult Blood Urine Nitrite Urine Bilirubin Urine Urobilinogen Ur Leukocyte Esterase Urine RBC Urine WBC Ur Squamous Epith Cells Amorphous Sediment Urine Bacteria Urine Mucus COVID-19 (GENNARO) POC Glucose 204 H Microbiology 05/07/20 08:15 Urine Catheter - Reese Streptococcus pneumoniae Antigen (M - Final 05/07/20 08:15 Urine Catheter - Reese Legionella Antigen - Final Clinical Impression(s) from Imaging Studies Chest X-Ray 05/06/20 17:44 IMPRESSION: Chronic interstitial changes in both lung pa bilaterally superimposed acute pulmonary process Electronically Signed: Chris Celestin MD at 18:22 EDT , Service support , Current Medications Artificial Tears (Tears Naturale, Artificial Tears) 2 drop OPHTHALMIC TID [facility] Last Admin: 05/07/20 05:32 Dose: 2 drop Documented by: [facility]irin ([facility]in, Baby) [facility] Dextrose (D50w Syringe) 0 gm IV X1 PRN; Protocol PRN Reason: Hypoglycemia Glucagon () 1 mg IM .X1 PRN PRN Reason: Hypoglycemia Heparin Sodium (Porcine) (Heparin Na) 0 unit IV UD PRN; Protocol Sodium Chloride () 1,000 mls @ 150 mls/hr IV .[id number] [facility] Last Admin: 05/07/20 05:30 Dose: 150 mls/hr Documented by: Heparin Sodium/Dextrose () 25,000 units in 250 mls @ 14 mls/hr IV .[id number] [facility]; Protocol Last Titration: 05/07/20 04:09 Dose: 1,100 units/hr, 11 mls/hr Documented by: Sodium Chloride () 250 mls @ 15 mls/hr IV .[id number] PRN PRN Reason: Saline Flush Sodium Chloride () 250 mls @ 15 mls/hr IV .[id number] PRN PRN Reason: Additional IVPB Infusion Insulin Human Lispro (Humalog Kwikpen (Bkc)) 0 unit SC Q6 [facility]; Protocol Last Admin: 05/07/20 05:32 Dose: 1 units Documented by: Lactobacillus Acidophilus (Acidophilus) 1 tablet PO BID [facility] Last Admin: 05/06/20 22:59 Dose: Not Given Documented by: Morphine Sulfate () 2 mg IV Q3H PRN PRN PRN Reason: Pain Score 6-10/10 Last Admin: 05/07/20 05:30 Dose: 2 mg Documented by: Nitroglycerin (Nitrostat) 0.4 mg SUBLINGUAL Q5M PRN PRN Reason: CARDIAC/CHEST PAIN Ondansetron HCl (Zofran) 4 mg IV Q8H PRN PRN PRN Reason: NAUSEA/VOMITING Sodium Chloride () 10 - 40 ml IV UD PRN PRN Reason: SALINE FLUSH Last Admin: 05/07/20 05:31 Dose: 10 ml Documented by: Assessment/Plan RECOMMENDATIONS: 1. Continue heparin infusion with additional medical management per cardiology recommendations. 2. Continue antimicrobials and gentle IV fluid hydration. 3. Maintain n.p.o. status, pending evaluation by speech therapy. 4. Obtain CTA head. 5. Goals of care discussion with patient's family today. IMPRESSIONS: 1. Severe sepsis with concerns for aspiration pneumonia Continue current supportive measures with gentle IV fluid hydration and antimicrobials. Infectious work-up is currently underway. Coronavirus testing was negative. Okay to discontinue isolation precautions. If MRSA screen is negative, vancomycin can be discontinued. Wean supplemental oxygen as tolerated. Recommend patient maintain n.p.o. status until evaluated by speech therapy. 2. Non-ST segment elevation SC/high degree heart block Cardiology is currently following to assist with medical management. 3. Possible CVA The patient does have a history of CVA. Per her accounts, the patient has been less talkative and seems more somnolent. CTA head and neck is currently pending. 4. Acute kidney injury Likely prerenal in etiology. Creatinine appears to be improving with gentle IV fluid hydration. Continue to monitor urine output. No current indication for renal replacement therapy. 5. Prior CVA with residual deficit/prior upper extremity DVT/posterior circulation CVA/hydrocephalus with ENGINEERING AIDE shunt Complicates care, management, recovery and prognosis. Continue home medications as indicated. This note was generated with MessageMe dictation software. It may contain incorrect words, spelling, and punctuation that were not noted in checking the note before signing. Inpatient E&M: 64683 Init Hosp L3
[2020-05-07] MEDS: Lidocaine Jelly 2% 20 ML Syringe (URO-JET) 20 APPLIC TOPICAL (08:00)
[2020-05-07 08:25] LABS: Cholesterol 128 mg/dL (200); High Density Lipoprotein 16 mg/dL; Triglycerides 238 mg/dL; Very Low Density Lipoprotein 48 mg/dL (5-40)
--- NOTE | 2020-05-07 09:28 | CT_ITS ---
STUDY: CTA HEAD AND NECK WITH CONTRAST REASON FOR EXAM: Male, 70 years old. INCREASED NEURO SYMPTOMS TODAY, HX HTN, AAA, DVT, HYDROCEPH WITH SHUNT, CRANIOTOMY RADIATION DOSAGE (If Supplied By Facility): CTDIvol = ( 28.76 ) mGy, DLP = ( 2243.24 ) mGycm TECHNIQUE: CT angiography was performed with a multi-detector CT scanner. Data acquisition was obtained from the skull base through the vertex following intravenous administration of 100ML ISOVUE 370. MIP images were reconstructed from the axial data set. Post-processing of the angiographic images was performed, with multiplanar reformation and 3D reconstruction. Individualized dose optimization techniques were used for this CT. COMPARISON: No relevant priors. FINDINGS: Normal bilateral petrous carotid arteries. There is calcified plaque formation of the right cavernous carotid artery, without a cross-sectional luminal stenosis. There is calcified plaque formation of the left cavernous carotid artery, without a cross-sectional luminal stenosis. Normal right A1 segments of the anterior cerebral artery. Normal left A1 segments of the anterior cerebral artery. Normal intact anterior communicating artery (ACOM). Normal bilateral A2 segments of the anterior cerebral arteries. Normal right M1 and M2 segments of the middle cerebral arteries, with a normal M1 bifurcation. Normal left M1 and M2 segments of the middle cerebral arteries, with a normal M1 bifurcation. Normal right posterior communicating artery (PCOM). Normal left posterior communicating artery (PCOM). Normal bilateral vertebral arteries. Normal basilar artery with a normal basilar bifurcation. The visualized bilateral superior cerebellar (SCA) arteries are normal. Normal bilateral P1, P2 and visualized P3 segments of the posterior cerebral arteries. There is no demonstrated aneurysm of the [place]. A right-sided ventricular shunt tube is seen. The distal tip is seen within the anterior horn of the left lateral ventricle. There is evidence of encephalomalacia in the left frontal lobe. The patient is status post occipital craniotomy and postsurgical changes in the cerebellum with the encephalomalacia involving both cerebellar hemispheres. AORTIC ARCH: There is atherosclerotic calcific plaque formation of the aortic arch and great vessels arising from the aortic arch, without a hemodynamically significant stenosis. There is a 2.2 cm x 0.8 cm aneurysmal bulging along the lateral aspect of the aortic arch to just above focal aneurysmal dilatation. There is a normal origin of the brachiocephalic, left common carotid, and left subclavian arteries. Focal atherosclerotic noncalcific plaques at the origin of the left common carotid artery. RIGHT CAROTID ARTERIES: Normal right common carotid artery (CCA). Normal right common carotid bulb. There is extensive atherosclerotic plaque formation of the origin of the right internal carotid artery with an estimated stenosis of greater than 70%. Normal visualized cervical portion of the right internal carotid artery. Normal origin of the right external carotid artery (ECA). LEFT CAROTID ARTERIES: Normal left common carotid artery (CCA). Normal left common carotid bulb. There is extensive atherosclerotic plaque formation of the origin of the left internal carotid artery with an estimated stenosis of greater than 70%. Normal visualized cervical portion of the left internal carotid artery. Normal origin of the left external carotid artery (ECA). VERTEBRAL ARTERIES: The left vertebral artery is occluded at its origin. CT/CTA Head AND Neck W/ Contrast IMPRESSION: High-grade stenosis at the level of the carotid bifurcations bilaterally. Occlusion of the left vertebral artery at its origin. Electronically Signed: Kurt Day, at 10:53 EDT , Service support ,
--- NOTE | 2020-05-07 10:52 | CASEMGMT ---
Patient is from [facility]. FLOYD spoke with Liza at [facility] and he is a prison resident. SW spoke with RN who said patient is worse and physician called family in for patient. Physician will talk with family about Hospice. SW let RN know SW available and call if needed. FLOYD let Liza at [facility] know this information. Odilia LOCKE
--- NOTE | 2020-05-07 11:16 | PCM.DC.SUM ---
Discharge Date and Diagnosis - Problem List Patient Problems: Active and Suspected Problems NSTEMI (non-ST elevated myocardial infarction) (Acute) Date of Admission: 05/06/20 Date of Discharge: 05/07/20 - Primary Discharge Diagnosis Acute Problems: Active Problems 1. Acute NSTEMI (non-ST elevated myocardial infarction) 2. Acute Second degree heart block with significant cardiac pauses 3. Acute Severe Sepsis secondary to Aspiration Pneumonia with associated tachypnea and hypoxia requiring oxygen 4. Suspected Acute CVA with worsened L facial droop and aphasia w/ CTA with high-grade stenosis at carotid bifurcations bilaterally and occlusion L vertebral artery at origin 5. Acute Kidney Injury 6. 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 Hx Hydrocephalus s/p RELAY TESTER Shunt 8. Chronic COPD 9. Hypertension 10. Hyperlipidemia 11. Anxiety and Depression 12. Chronic anemia, AOCD 13. Diabetes mellitus type II 14. Known AAA 15. 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 Moscos[facility] Cardiology Dr. Bautista ICU Dr. [facility] Operations: None Procedures: EKG, - - CTA Head and neck. Ordered ECHO, liver US however these were deferred given hospice transition. 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 Following ED presentation, patient labs and imaging data concerning for acute NSTEMI suspected possibly inferior especially given concurrent second-degree heart block with significant pauses which were witnessed during admission with elevated lactic acid and concern for severe sepsis concurrently secondary to aspiration pneumonia. Patient was admitted to the ICU, cardiology was consulted and decision for avoidance of cardiac catheterization given patient significant medical history and DNR CCA no intubation status with significant comorbidities already per discussions upon admission with family concurrently. Patient was initially maintained on IV Zosyn and vancomycin pending MRSA screen. COVID testing was obtained and negative. Patient mental status continued to be decreased from his baseline therefore patient was transitioned to NH aspirin and speech therapy evaluation was requested given concerns for ongoing aspiration associated with his acute severe sepsis. Given mental status changes decision to obtain CT head specifically CTA head and neck to further evaluate and while patient was being taken to the scanner he had significantly worsened aphasia and left-sided facial droop. CTA head and neck resulted with high-grade stenosis at the level of the carotid bifurcations bilaterally and occlusion of the left vertebral artery at the origin. While in the CT scanner patient had a witnessed 15-second lack of flow to the brain secondary to cardiac pauses. Discussion had with family given patient's significant presentation and underlying comorbidities and decision to transition patient to hospice life care for comfort measures. DAY OF DISCHARGE PROGRESS NOTE: Subjective: Patient with significant ongoing events and now suspected acute CVA with worsened left-sided facial droop as well as aphasia with significant cardiac pause with second-degree heart block and IN noted upon admission and while in scanner. Patient unable to answer any ROS questions but no obvious evidence of fever, chills, nausea, emesis, abdominal pain but evident tachypnea and hypoxia off oxygen with occasional chest grab with his arm. Patient's family amenable to patient transition to hospice given the severity of his state and poor quality of life. Objective: T 98.2, heart rate 79, BP 105/73, respiratory rate 19, 93% on 3 L nasal cannula. Physical Examination: General: awake, not alert, unable to answer any orientation questions, underlying moderate to severe chronic memory impairment but worse compared to baseline, not following any commands, still ongoing mild increased tachypnea. Skin: normal color, turgor, no icterus, cyanosis. HEENT: AT/NC, EOM difficult to assess as not following commands, PERRLA, mild L sided ptosis, left facial droop present but more pronounced than previously noted to be worse when transition to CT scanner even from exam in a.m., poor dentition, dry MM. Lungs: CTA bilaterally, poor effort, moderate decrease BL bases, no rales, ronchi or wheezing, increased respiratory rate. Heart: Regular rate and rhythm; no gallop, rub audible. Abdomen: soft, overweight, NTTP, ND, normal BS. Extremities: no cyanosis, clubbing, or edema. Neurological: awake, not alert, unable to answer any orientation questions, underlying moderate to severe chronic memory impairment but worse compared to baseline, not following any commands, still ongoing mild increased tachypnea; cognitive function decreased from baseline; pupils equally reactive to light and accomodation; cranial nerves grossly normal except notable L sided facial droop s/p CVA worsened but difficult as not following commands, moving all 4 extremities to stimuli, strength difficult to assess but currently appears severely global decrease secondary to acute presentation. Psychiatric: affect appears flat, no acute evidence of depressive or anxiety feelings. Assessment and Plan: Please see hospital summary above. CODE status: Patient family are his healthcare power of document review attorney and living will is in place. Patient had been DNR CCA, no intubation status however given worsened condition during admission discussed CODE status at length including difference between FULL code, DNR-CCA and DNR-CC status. Following discussions about the differences in these status, requested transition to DNR CC status with transition to hospice. Advanced Care Planning Face to Face Time: 16 minutes. Patient Problems: Active and Suspected Problems NSTEMI (non-ST elevated myocardial infarction) (Acute) - Physical Exam Vitals/I&O's: Vital Signs Temp Pulse Resp BP Pulse Ox 98.2 F 79 19 H 105/73 93 05/07/20 10:30 05/07/20 10:30 05/07/20 10:30 05/07/20 10:30 05/07/20 10:30 Oxygen Flow Rate (L/min) 3 Oxygen Delivery Method Nasal Cannula Weight: 203 lb 0.732 oz Body Mass Index (BMI) 29.5 Finger Stick Blood Glucose 151 Intake and Output for Last 24 Hours 05/05/20 05/06/20 05/07/20 23:59 23:59 23:59 Intake Total 1070.07 / 1070.07 1382.28 / 1382.28 Output Total 200 / 200 Balance 1070.07 / 1070.07 1182.28 / 1182.28 Microbiology Past 72 Hours 05/06/20 17:45 Urine Catheter - Catheter Urine Culture - Preliminary Culture exhibits no growth. 05/07/20 08:15 Urine Catheter - Reese Streptococcus pneumoniae Antigen (M - Final 05/07/20 08:15 Urine Catheter - Reese Legionella Antigen - Final Laboratory Results 05/06/20 17:00: WBC 10.2, RBC 4.56 L, Hgb 13.6, Hct 42.8, MCV 93.9, MCH 29.8, MCHC 31.8 L, RDW Std Deviation 61.7 H, RDW Coeff of Jagruti 17.7 H, Plt Count 180, MPV 10.6, Immature Gran % (Auto) 0.900, Neut % (Auto) 77.9 H, Lymph % (Auto) 12.3 L, [place] % (Auto) 8.1, Eos % (Auto) 0.3, Baso % (Auto) 0.5, Absolute Neuts (auto) 8.0 H, Absolute Lymphs (auto) 1.26, Nucleated RBC % 0 05/06/20 17:00: PT 14.3, INR 1.2, APTT 30.2 05/06/20 17:00: Sodium 141, Potassium 4.5, Chloride 108 H, Carbon Dioxide 22.0, Anion Gap 11, BUN 50 H, Creatinine 1.69 H, Estim Creat Clear Calc 45.28, Est GFR (MDRD) Af Amer 52 L, Est GFR (MDRD) Non-Af 43 L, BUN/Creatinine Ratio 29.6 H, Glucose 314 H, Calcium 8.8, Total Bilirubin 0.50, AST 127 H, ALT 152 H, Alkaline Phosphatase 118 H, Total Protein 7.8, Albumin 2.6 L, Globulin 5.2 H, Albumin/Globulin Ratio 0.5 L 05/06/20 17:00: Lactic Acid 3.2 H* 05/06/20 17:00: Troponin I 28.500 H* 05/06/20 17:05: COVID-19 (GENNARO) Negative 05/06/20 17:45: Urine Color Yellow, Urine Clarity Sl. Cloudy, Urine pH 5.0, Ur Specific [place] 1.020, Urine Protein 30 H, Urine Glucose (UA) 50 H, Urine Ketones 5 H, Urine Occult Blood Negative, Urine Nitrite Negative, Urine Bilirubin 1 H, Urine Urobilinogen 4 H, Ur Leukocyte Esterase 25 H, Urine RBC 0 SEEN, Urine WBC 0-5 SEEN, Ur Squamous Epith Cells 0-5 SEEN, Amorphous Sediment 1+ URATE, Urine Bacteria 0 SEEN, Urine Mucus 0 SEEN 05/06/20 18:56: APTT Cancelled 05/06/20 21:25: Lactic Acid 2.9 H* 05/06/20 22:35: POC Glucose 244 H 05/06/20 22:50: Troponin I 30.200 H* 05/07/20 01:35: Troponin I 31.000 H* 05/07/20 01:35: APTT 108.4 H* 05/07/20 01:35: PT 15.5 H, INR 1.3 05/07/20 04:05: WBC 9.1, RBC 4.16 L, Hgb 12.4 L, Hct 38.8 L, MCV 93.3, MCH 29.8, MCHC 32.0, RDW Std Deviation 60.3 H, RDW Coeff of Jagruti 18.0 H, Plt Count 153, MPV 10.7, Immature Gran % (Auto) 1.000 H, Neut % (Auto) 73.7 H, Lymph % (Auto) 16.2 L, [place] % (Auto) 7.6, Eos % (Auto) 1.1, Baso % (Auto) 0.4, Absolute Neuts (auto) 6.7, Absolute Lymphs (auto) 1.48, Nucleated RBC % 0 05/07/20 04:05: PT Cancelled, INR Cancelled 05/07/20 04:05: Sodium 143, Potassium 4.4, Chloride 112 H, Carbon Dioxide 23.0, Anion Gap 8, BUN 41 H, Creatinine 1.22, Estim Creat Clear Calc 62.72, Est GFR (MDRD) Af Amer 76, Est GFR (MDRD) Non-Af 63, BUN/Creatinine Ratio 33.6 H, Glucose 232 H, Calcium 7.8 L, Phosphorus 3.4, Magnesium 2.8 H 05/07/20 04:12: Triglycerides 238 H, Cholesterol 128, LDL Cholesterol 64, VLDL Cholesterol 48 H, HDL Cholesterol 16 L 05/07/20 05:27: POC Glucose 204 H Current Medications Albuterol Sulfate (Ventolin Aerosols) 2.5 mg INHALATION Q2H PRN PRN PRN Reason: Dyspnea, wheezing Artificial Tears (Tears Naturale, Artificial Tears) 2 drop OPHTHALMIC TID ETELVINA Last Admin: 05/07/20 05:32 Dose: 2 drop Documented by: Aspirin (Aspirin) 300 mg RECTAL DAILY [facility] Dextrose (D50w Syringe) 0 gm IV X1 PRN; Protocol PRN Reason: Hypoglycemia Glucagon () 1 mg IM .X1 PRN PRN Reason: Hypoglycemia Heparin Sodium (Porcine) (Heparin Na) 0 unit IV UD PRN; Protocol Hydralazine HCl (Apresoline Iv) 10 mg IV Q4H PRN PRN PRN Reason: SBP > 160 Heparin Sodium/Dextrose () 25,000 units in 250 mls @ 14 mls/hr IV .[id number] ETELVINA; Protocol Last Titration: 05/07/20 07:48 Dose: 1,100 units/hr, 11 mls/hr Documented by: Sodium Chloride () 250 mls @ 15 mls/hr IV .[id number] PRN PRN Reason: Saline Flush Sodium Chloride () 250 mls @ 15 mls/hr IV .[id number] PRN PRN Reason: Additional IVPB Infusion Piperacillin Sod/Tazobactam (Sod 3.375 gm/ Sodium Chloride) 50 mls @ 12.5 mls/hr IV Q8 ETELVINA Vancomycin IV Pharmacy to Dose (1 ea/ Sodium Chloride) 500 mls @ 250 mls/hr IV PRN PRN; Protocol PRN Reason: Rx to Dose Sodium Chloride () 1,000 mls @ 125 mls/hr IV .Q8H ETELVINA Insulin Human Lispro (Humalog Kwikpen (Bkc)) 0 unit SC Q6 [facility]; Protocol Last Admin: 05/07/20 05:32 Dose: 1 units Documented by: Morphine Sulfate () 2 mg IV Q3H PRN PRN PRN Reason: Pain Score 6-10/10 Last Admin: 05/07/20 05:30 Dose: 2 mg Documented by: Nitroglycerin (Nitrostat) 0.4 mg SUBLINGUAL Q5M PRN PRN Reason: CARDIAC/CHEST PAIN Ondansetron HCl (Zofran) 4 mg IV Q8H PRN PRN PRN Reason: NAUSEA/VOMITING Sodium Chloride () 10 - 40 ml IV UD PRN PRN Reason: SALINE FLUSH Last Admin: 05/07/20 05:31 Dose: 10 ml Documented by: Home Medications: Medications to take at Discharge Polyvinyl Alcohol [Artificial Tears] 2 drop EACHEYE TID 11/25/16 Acetaminophen [Acetaminophen 8 Hour] 650 mg PO Q4H PRN PRN 02/16/17 Meclizine HCl [Antivert] 12.5 mg PO DAILY 02/16/17 Amlodipine [Norvasc] 5 mg PO DAILY 09/27/19 Aspirin 81 mg PO DAILY 09/27/19 Finasteride 5 mg PO DAILY 09/27/19 Melatonin 3 mg PO QHS 09/27/19 Polyethylene Glycol 3350 [Miralax] 17 gm PO DAILY 09/27/19 Quetiapine Fumarate [Seroquel] 25 mg PO QHS 09/27/19 Sennosides/Docusate Sodium [Senexon-S Tablet] 2 tab PO BID 09/27/19 Amoxicillin/Potassium Clav [Augmentin 875-125 Tablet] 1 tab PO BID 05/06/20 Carbamide Peroxide [Ear Wax Removal] 5 drp EACH EAR BID 05/06/20 Lactobacillus Acidophilus [Acidophilus] 1 cap PO BID 05/06/20 Metformin HCl 500 mg PO BID 05/06/20 Primary Care Physician: Xu Diaz MD [Primary Care Provider] - Disposition: Hospice Medical Facility Minutes spent on discharge:: 45 Patient Condition:: Critical Medical Necessity - Tobacco Use Smoking Status: Former smoker Meaningful Use Info Meaningful Use Diagnoses (Choose all that apply): AMI - AMI/Post PCI/Angioplasty Aspirin given w/in 24hrs of arrival?: Yes ASA at discharge?: No Reason ASA not ordered:: Drug Interaction - Hospice. Antiplatelet Therapy at Discharge:: No Reason Antiplatelet Therapy not ordered:: Hospice. Statins at discharge?: No Reason statins not ordered:: Drug Interaction - Hospice. Cyrus/ARB at discharge?: No Reason Cyrus/ARB not ordered:: Drug Interaction - Hospice. Beta Gary at discharge?: No Reason Beta Gary not ordered:: Drug Interaction - Hospice. Done w/ Acute IN measure.: Yes Inpatient E&M: 50679 Disch Hosp Procedures: 71316 Advncd Care Plan 30 Min
--- NOTE | 2020-05-07 11:57 | CASEMGMT ---
SW received a call from [facility] [employer] [facility]. Patient's family chose for patient to go to the inpatient Hospice unit. She asked what is next. SW called Shweta at Hospice and even though the doctor to doctor was done they have to do some things on their end. They will sort through referral and contact family. They will then get back to SW. They will need a nurse to nurse report ([phone]) SW called RN and let her know above information. Awaiting Hospice to call back when they are ok for patient. Odilia VILLEGAS MSW
--- NOTE | 2020-05-07 12:38 | CASEMGMT ---
Received call from Hospice and they are ready for patient. They do not have transportation available. SW called RN in ICU and let her know to set up transport and gave her the number for report. RN or SW to call Hospice with slate picker time. Plan: d/c to [facility] inpatient unit Odilia LOCKE
--- NOTE | 2020-05-07 12:44 | CASEMGMT ---
RN arranged transport for 2p. She will call report and notify the inpatient unit. SW also called Shweta at Hospice letting her know. Patient's family is still at [facility] so RN will let them know transport time. Plan: Inpatient Hospice Unit Odilia VILLEGAS MSW
--- NOTE | 2020-05-07 13:13 | CASEMGMT ---
FLOYD also called Liza at [facility] and left her a voice mail letting her know the plan. Odilia VILLEGAS MSW
--- NOTE | 2020-05-07 13:24 | NURSING ---
report called to [facility]
--- NOTE | 2020-05-07 17:23 | PCM.CONS.C ---
Reason for Consult Date of Consultation: 05/07/20 History of Present Illness: The patient is a 70 year old patient with a significant past medical history of anemia of chronic disease, anxiety depression, CVA, hydrocephalus status post CUTTER OPERATOR HELPER shunt, hypertension presents the emergency room from the [facility] due to acute shortness of breath. The patient was seen and treated last Wednesday and diagnosed with pneumonia and placed on Augmentin. The patient is a poor historian and noncommunicative at this point I am informed by the ER physician that the patient is DNR Comfort Care arrest. Patient himself was not complaining of shortness of breath and was actually nonverbal and unable to give any history. The staff at the [place] [facility] felt that he was short of breath when he was there. In the ER he was comfortable. EKG revealed subacute myocardial infarction with 2-1 and at times third-degree AV block. Patient appeared to be asymptomatic. His troponin was also elevated. The patient's clinical condition was discussed with Dr. Cardoso who was the hospitalist automotive parts person. It was felt that due to overall patient condition it would be [facility] with [facility]'s comfort in mind. Patient this morning appeared to have a CVA and has been made hospice. Past Medical History Allergies/Adverse Reactions: Allergies No Known Allergies Allergy (Verified 09/27/19 12:17) Home Medications: Ambulatory Orders Medication Instructions Recorded Polyvinyl Alcohol [Artificial 2 drop EACHEYE TID 11/25/16 Tears] Acetaminophen [Acetaminophen 8 650 mg PO Q4H PRN PRN 02/16/17 Hour] Meclizine HCl [Antivert] 12.5 mg PO DAILY 02/16/17 Amlodipine [Norvasc] 5 mg PO DAILY 09/27/19 Aspirin 81 mg PO DAILY 09/27/19 Finasteride 5 mg PO DAILY 09/27/19 Melatonin 3 mg PO QHS 09/27/19 Polyethylene Glycol 3350 [Miralax] 17 gm PO DAILY 09/27/19 Quetiapine Fumarate [Seroquel] 25 mg PO QHS 09/27/19 Sennosides/Docusate Sodium 2 tab PO BID 09/27/19 [Senexon-S Tablet] Amoxicillin/Potassium Clav 1 tab PO BID 05/06/20 [Augmentin 875-125 Tablet] Carbamide Peroxide [Ear Wax 5 drp EACH EAR BID 05/06/20 Removal] Lactobacillus Acidophilus 1 cap PO BID 05/06/20 [Acidophilus] Metformin HCl 500 mg PO BID 05/06/20 Past Medical History (Chronic Problems): Chronic Problems HTN (hypertension) (Chronic) HLD (hyperlipidemia) (Chronic) Anxiety and depression (Chronic) Anemia of chronic disease (Chronic) Anemia (Chronic) AAA (abdominal aortic aneurysm) (Chronic) Hydrocephalus (Chronic) dvt in right upper arm (Chronic) S/P CUTTER OPERATOR HELPER shunt (Chronic) CVA (cerebral vascular accident) (Chronic) 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 Psychiatric History: Anxiety, Depression - *Family History Paternal History Items: Heart Disease, Hypertension Maternal History Items: Heart Disease Lives: Intermediate Smoking Status: Former smoker Objective: Vital Signs Temp Pulse Resp BP Pulse Ox 98.3 F 72 26 H 113/87 H 99 05/07/20 13:55 05/07/20 13:55 05/07/20 13:55 05/07/20 13:55 05/07/20 13:55 Oxygen Flow Rate (L/min) 3 Oxygen Delivery Method Room Air Weight: 203 lb 0.732 oz Body Mass Index (BMI) 29.5 Finger Stick Blood Glucose 151 Intake and Output for Last 24 Hours 05/05/20 05/06/20 05/07/20 23:59 23:59 23:59 Intake Total 1070.07 / 1070.07 1741.98 / 1741.98 Output Total 200 / 200 Balance 1070.07 / 1070.07 1541.98 / 1541.98 General: Awake - unable to give any history or respond to questions Skin: No Rashes 05/06/20 17:00: PT 14.3, INR 1.2, APTT 30.2 05/06/20 17:00: Sodium 141, Potassium 4.5, Chloride 108 H, Carbon Dioxide 22.0, Anion Gap 11, BUN 50 H, Creatinine 1.69 H, Est GFR (MDRD) Af Amer 52 L, Est GFR (MDRD) Non-Af 43 L, BUN/Creatinine Ratio 29.6 H, Glucose 314 H, Calcium 8.8, Total Bilirubin 0.50 05/06/20 17:00: Lactic Acid 3.2 H* 05/06/20 17:00: Troponin I 28.500 H* 05/06/20 17:45: Urine Color Yellow, Urine Clarity Sl. Cloudy, Urine pH 5.0, Ur Specific [place] 1.020, Urine Protein 30 H, Urine Glucose (UA) 50 H, Urine Ketones 5 H, Urine Occult Blood Negative, Urine Nitrite Negative, Urine Bilirubin 1 H, Urine Urobilinogen 4 H, Ur Leukocyte Esterase 25 H, Urine RBC 0 SEEN, Urine WBC 0-5 SEEN 05/06/20 18:56: APTT Cancelled 05/06/20 21:25: Lactic Acid 2.9 H* 05/06/20 22:50: Troponin I 30.200 H* 05/07/20 01:35: Troponin I 31.000 H* 05/07/20 01:35: APTT 108.4 H* 05/07/20 01:35: PT 15.5 H, INR 1.3 05/07/20 04:05: WBC 9.1, RBC 4.16 L, Hgb 12.4 L, Hct 38.8 L, MCV 93.3, MCH 29.8, MCHC 32.0, Plt Count 153, MPV 10.7, Immature Gran % (Auto) 1.000 H, Neut % (Auto) 73.7 H, Lymph % (Auto) 16.2 L, [place] % (Auto) 7.6, Eos % (Auto) 1.1, Baso % (Auto) 0.4, Absolute Neuts (auto) 6.7, Nucleated RBC % 0 05/07/20 04:05: PT Cancelled, INR Cancelled 05/07/20 04:05: Sodium 143, Potassium 4.4, Chloride 112 H, Carbon Dioxide 23.0, Anion Gap 8, BUN 41 H, Creatinine 1.22, Est GFR (MDRD) Af Amer 76, Est GFR (MDRD) Non-Af 63, BUN/Creatinine Ratio 33.6 H, Glucose 232 H, Calcium 7.8 L, Phosphorus 3.4, Magnesium 2.8 H 05/07/20 04:12: Triglycerides 238 H, Cholesterol 128, LDL Cholesterol 64, VLDL Cholesterol 48 H, HDL Cholesterol 16 L Rhythm: EKG: ECHO: Stress Test: Cardiac Cath: PCI: CT Surgery: Holter monitor: EPS: PPM: CXR: Chest CT Scan: Assessment/Plan 1. Acute myocardial infarction: Appears to be presenting subacutely at this time based on the troponin trend. Patient appears comfortable from a cardiac standpoint. Invasive approach is not indicated at this time. He has been made hospice and I think that is the appropriate decision in the best interest of the patient.
== END 2020-05-07 14:00 | disposition hospice, inpatient (51) | DRG 280 ==
LOC: ED 19:09 → ICU 19:35
PROVIDERS: Admitting Provider Family Medicine; Emergency Provider Emergency Medicine; PCP Family Medicine; Referring Provider Family Medicine; Visit Provider Family Medicine
DX: I21.4 Non-ST elevation (NSTEMI) myocardial infarction (principal); A41.9 Sepsis, unspecified organism; J69.0 Pneumonitis due to inhalation of food and vomit; I63.9 Cerebral infarction, unspecified; R65.20 Severe sepsis without septic shock; N17.9 Acute kidney failure, unspecified; I44.1 Atrioventricular block, second degree; H91.90 Unspecified hearing loss, unspecified ear; E78.5 Hyperlipidemia, unspecified; I10 Essential (primary) hypertension; E11.9 Type 2 diabetes mellitus without complications; F32.9 Major depressive disorder, single episode, unspecified; F41.9 Anxiety disorder, unspecified; D63.8 Anemia in other chronic diseases classified elsewhere; N40.0 Benign prostatic hyperplasia without lower urinary tract symptoms; I69.320 Aphasia following cerebral infarction; I69.392 Facial weakness following cerebral infarction; J44.9 Chronic obstructive pulmonary disease, unspecified; Z66 Do not resuscitate; Z86.718 Personal history of other venous thrombosis and embolism; Z87.891 Personal history of nicotine dependence
CPT/HCPCS: 70496; 70498; 71045; 80048; 80053; 80061; 81001; 82962; 83605; 83735; 84100; 84484; 85025; 85610; 85730; 87040; 87086; 87449; 87635; 93005; 99285; G2023; J7030; Q9967; A4216; U0003